=== PATIENT | male | born 1945 | race Caucasian/White ===

== ENCOUNTER 2018-07-29 10:26 | Inpatient (IN) | payer MEDICARE, OTHER ==
[2018-07-29] MEDS ORDERED: Sodium Chloride 0.9% 1000 ML 1,000 ML IV STA (11:48)
[2018-07-29] MEDS ORDERED: Sodium Chloride 0.9% 1000 ML 1,000 ML ONE (11:50)
--- NOTE | 2018-07-29 11:53 | ERPHSYRPT ---
- History of Present Illness Time Seen by Provider: 07/29/18 11:49 Historian: patient, family Exam Limitations: no limitations Patient Subjective Stated Complaint: Pt states "I have about 80 percent of my stomach removed due to cancer and I get these pains accross my abdomen and I think my kidneys are having trouble now. I am here because my thinks I might need some blood and my stomach is hurting again." Triage Nursing Assessment: PT alert and oriented X 3, skin pwd. Pt ambultes with an upright steady gait, able to speak in clear full sentences. Pt legs slightly swollen. PT in no apparent respiratory distress. Physician History: This is a 72-year-old white male with history of macular degeneration, COPD, hypercholesterolemia, high blood pressure, LA, GERD, stomach cancer, renal disease, The patient arrives with complaint of intermittent sharp pains lasting seconds and being recurrent going on for the last 2 days. He states he is not having any vomiting no melena no hematochezia he has had loose stools. Patient does state he had similar pain when he had a bowel obstruction when he had surgery for his stomach cancer he states he's had 80% of his stomach removed. He has no fevers no shortness of breath no chest pain. Past medical history includes macular degeneration, COPD, hypercholesterolemia, high blood pressure, myocardial infarction, GERD, renal disease, stomach cancer, bowel obstruction. Past surgical history includes 80% of his stomach removed, cardiac stents portion of his esophagus removed appendectomy, hernia repair, bilateral carpal tunnel. Social history former smoker . Timing/Duration: day(s) (2 days) Activities at Onset: none Quality: sharpness Abdominal Pain Onset Location: suprapubic Pain Radiation: no radiation Severity of Pain-Max: moderate Severity of Pain-Current: none Modifying Factors: Improves With: nothing. Worsens With: antacids, breathing, coughing, defecating, eating, exercise, lying down, movement, palpation, rest, urinating, vomiting, position, walking Associated Symptoms: diarrhea, No back, No chest pain, No diaphoresis, No fever/ chills, No fatigue, No headache, No heartburn, No loss of appetite, No nausea, No neck pain, No rash, No shortness of breath, No syncope, No testicular pain, No vomiting, No weakness Previous symptoms: same symptoms as today Allergies/Adverse Reactions: No Known Drug Allergies Allergy (Unverified 07/29/18 10:45) Home Medications: Amlodipine Besylate 2.5 mg PO DAILY 07/29/18 [History] Atorvastatin Calcium 10 mg PO DAILY 07/29/18 [History] Finasteride 5 mg PO DAILY 07/29/18 [History] Isosorbide Mononitrate 60 mg [Imdur 60MG] 60 mg PO DAILY 07/29/18 [History] Metoprolol Tartrate 25 mg PO DAILY 07/29/18 [History] PANTOPRAZOLE 40 mg Tablet [Protonix 40MG Tablet] 40 mg PO DAILY 07/29/18 [ History] Tamsulosin HCl 0.4 mg PO DAILY 07/29/18 [History] Hx Tetanus, Diphtheria Vaccination/Date Given: No Hx Influenza Vaccination/Date Given: No Hx Pneumococcal Vaccination/Date Given: No Immunizations Up to Date: Yes - Review of Systems Constitutional: No Fever, No Chills Eyes: No Symptoms Ears, Nose, & Throat: No Symptoms Respiratory: No Cough, No Dyspnea Cardiac: No Chest Pain, No Edema, No Syncope Abdominal/Gastrointestinal: Abdominal Pain, Diarrhea, No Nausea, No Vomiting, No Constipation, No Hematemesis, No Hematochezia, No Melena, No Dysphagia, No Appetite Changes Genitourinary Symptoms: No Dysuria Musculoskeletal: No Back Pain, No Neck Pain Skin: No Rash Neurological: No Dizziness, No Focal Weakness, No Sensory Changes Psychological: No Symptoms Endocrine: No Symptoms All Other Systems: Reviewed and Negative - Past Medical History Pertinent Past Medical History: Yes Neurological History: No Pertinent History ENT History: Macular Degeneration Cardiac History: High Cholesterol, Hypertension, Myocardial Infarction (LA) Respiratory History: COPD Endocrine Medical History: No Pertinent History Musculoskeletal History: No Pertinent History GI Medical History: GERD, Other History: Renal Disease Psycho-Social History: No Pertinent History Male Reproductive Disorders: No Pertinent History Other Medical History: stomach cancer. bowel blockage - Past Surgical History Past Surgical History: Yes Other Surgical History: power port. 80% of stomach removed. part of esophagus removed. colonoscopy - Social History Smoking Status: Former smoker Exposure to second hand smoke: No Drug Use: none Patient Lives Alone: No - Nursing Vital Signs Nursing Vital Signs: Initial Vital Signs Temperature 97.8 F 07/29/18 10:34 Pulse Rate 72 07/29/18 10:34 Respiratory Rate 16 07/29/18 10:34 Blood Pressure 144/66 07/29/18 10:34 O2 Sat by Pulse Oximetry 99 07/29/18 10:34 Pain Scale Pain Intensity 0 - Physical Exam General Appearance: no apparent distress, alert Eye Exam: PERRL/EOMI, eyes nml inspection Ears, Nose, Throat Exam: normal ENT inspection, pharynx normal, moist mucous membranes Neck Exam: normal inspection, non-tender, supple, full range of motion Respiratory Exam: normal breath sounds, lungs clear, No respiratory distress Cardiovascular Exam: regular rate/rhythm, normal heart sounds, capillary refill <2 sec Gastrointestinal/Abdomen Exam: soft, No tenderness, No mass Back Exam: normal inspection, normal range of motion, No CVA tenderness, No vertebral tenderness Extremity Exam: normal inspection, normal range of motion, pelvis stable Neurologic Exam: alert, oriented x 3, cooperative, 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 Sinus bradycardia, 55 bpm, normal axis, no acute ST or T wave changes noted) Ordered Tests: Active Orders 24 hr Category Date Time Status EKG-ER Only STAT Care 07/29/18 11:48 Active IV Insertion STAT Care 07/29/18 11:48 Active ABDOMEN AND PELVIS W/0 CONTRAS [CT] Stat Exams 07/29/18 12:10 Completed AMYLASE Stat Lab 07/29/18 11:30 Completed CBC W DIFF Stat Lab 07/29/18 11:30 Completed CMP Stat Lab 07/29/18 11:30 Completed CULTURE,URINE Stat Lab 07/29/18 13:35 Received LIPASE Stat Lab 07/29/18 11:30 Completed Manual Differential NC Stat Lab 07/29/18 11:30 Completed UA W/RFX UR CULTURE Stat Lab 07/29/18 13:35 Completed Medication Summary Discontinued Medications Generic Name Dose Route Start Last Admin Trade Name Freq PRN Reason Stop Dose Admin Sodium Chloride 1,000 mls @ 999 mls/hr 07/29/18 11:48 07/29/18 13:26 Sodium Chloride 0.9% 1000 Ml IV 07/29/18 12:48 Infused .Q1H1M STA Infusion Sodium Chloride Confirm 07/29/18 11:50 Sodium Chloride 0.9% 1000 Ml Administered 07/29/18 11:51 Dose 1,000 mls @ ud .ROUTE .STK-MED ONE Lab/Rad Data: Laboratory Result Diagrams 07/29/18 11:30 07/29/18 11:30 Laboratory Results 07/29/18 07/29/18 07/29/18 Range/Units 13:35 11:30 11:30 WBC 4.2 (4.0-10.5) K/mm3 RBC 2.59 L (4.1-5.6) M/mm3 Hgb 8.3 L (12.5-18.0) gm/dl Hct 27.0 L (42-50) % MCV 104.2 H (78-100) fl MCH 32.0 (26-32) pg MCHC 30.7 L (32-36) g/dl RDW 19.2 H (11.5-14.0) % Plt Count 239 (150-450) K/mm3 MPV 10.8 H (6-9.5) fl Segmented Neutrophils 76 H (36.-66.) % Band Neutrophils 1 (0.0-2.0) % Lymphocytes (Manual) 17 L (24-44) % Monocytes (Manual) 4 (0.0-12.0) % Eosinophils (Manual) 2 (0.00-3.0) % Toxic Granulation 2+ Platelet Estimate NORMAL (NORMAL) RBC Morphology ABNORMAL Poikilocytosis 1+ Anisocytosis 2+ Sodium 141 (137-145) mmol/L Potassium 4.1 (3.5-5.1) mmol/L Chloride 113 H (98-107) mmol/L Carbon Dioxide 21 L (22-30) mmol/L Anion Gap 11.2 (5-15) MEQ/L BUN 23 H (9-20) mg/dL Creatinine 2.05 H (0.66-1.25) mg/dL Estimated GFR 34.1 ML/MIN Glucose 181 H (74-106) mg/dL Calcium 8.5 (8.4-10.2) mg/dL Total Bilirubin 0.70 (0.2-1.3) mg/dL AST 18 (17-59) U/L ALT 16 (0-50) U/L Alkaline Phosphatase 114 (38-126) U/L Serum Total Protein 5.7 L (6.3-8.2) g/dL Albumin 3.1 L (3.5-5.0) g/dL Amylase 30 (30-110) U/L Lipase < 10 L (23-300) U/L Urine Color YELLOW (YELLOW) Urine Appearance SLIGHTLY CLOUDY (CLEAR) Urine pH 5.0 (5-6) Ur Specific [place] 1.016 (1.005-1.025) Urine Protein NEGATIVE (Negative) Urine Ketones NEGATIVE (NEGATIVE) Urine Blood LARGE (0-5) Alex/ul Urine Nitrite NEGATIVE (NEGATIVE) Urine Bilirubin NEGATIVE (NEGATIVE) Urine Urobilinogen NEGATIVE (0-1) mg/dL Ur Leukocyte Esterase TRACE (NEGATIVE) Urine WBC (Auto) 16-25 (0-5) /HPF Urine RBC (Auto) 51-100 (0-2) /HPF U Hyaline Cast (Auto) 0-2 (0-2) /LPF U Epithel Cells (Auto) NONE (FEW) /HPF Urine Bacteria (Auto) NONE (NEGATIVE) /HPF Urine Mucus (Auto) SLIGHT (NEGATIVE) /HPF Urine Culture Reflexed YES (NO) Urine Glucose NEGATIVE (NEGATIVE) mg/dL - Progress Progress: improved Progress Note: 07/29/18 13:40 72-year-old white male arrives with complaint of intermittent periumbilical abdominal pain for 2 days described as sharp and lasts for several seconds then goes away recurring every few minutes. Patient without nausea vomiting he has had diarrhea patient does have a history of stomach cancer with resection. CT of the abdomen is obtained without contrast Impression 1. The exam is markedly abnormal, 2. Borderline cardiomegaly with mild pericardial effusion, 3. Mild to moderate by basilar pleural effusions with adjacent compressive atelectasis at both posterior lung bases. 4. Evidence of prior upper abdominal surgery, apparently because of patient's history of "stomach cancer". 5. Moderate ascites is seen within the abdomen and pelvis. No evidence of free intraperitoneal air. 6. The gallbladder appears contracted and reveals mild increased attenuation. The possibility of small gallstones cannot be excluded or positively confirmed. 7. There appears to be bilateral hydronephrosis for unknown reasons. There is a right double-J ureteral stent extending from the right renal pelvis to the right side of the urinary bladder. No definite hydroureter or calculi are seen. There is also some apparent right renal cortical cysts and cortical thickening at the posterior aspect of the upper pole of the right kidney. 8. There is an abnormal but nonspecific small bowel gas pattern with some fluid -filled mildly dilated distal small bowel within the upper right pelvis measuring up to 3.5 cm in diameter. This could be due to a regional ileus or enteritis. Partial distal small bowel obstruction is also possible. Scattered distal colonic gas is seen. 9. Minimal sigmoid colon diverticulosis without evidence of acute diverticulitis. 10. An IVC filter is seen and place at L3-L4. There is also scattered dense atherosclerotic vascular calcification present. 11 mild prostatomegaly, small fat containing left inguinal hernia, and degenerative changes throughout the visualized thoracolumbar spine, greatest at L4-L5 where mild to moderate degenerative disc disease is seen. 07/29/18 14:44 I contacted the patient's oncologist Dr. Taye Medrano in [facility] and discussed the patient's presentation labs and CT findings. He stated that the CT findings were not much different than what he was when he was recently worked up in [place] one to 2 weeks ago. He did state that the patient has had a small bowel obstruction which resolved spontaneously with Gastrografin study. I discussed patient's pericardial effusion and pleural effusions with Dr. Medrano he did not feel like these were different than prior. He did state that he did note that the patient's creatinine had increased from when he was in the hospital in [place]. He recommended hydrating the patient. I've discussed this with the patient he is willing to come in overnight. Apparently the patient had signed up to see Dr. Maurer he has not seen him yet but is planning on seeing him I've discussed the case with Dr. Gallegos who is covering for Dr. Maurer. Will go ahead and place patient on telemetry, provide IV fluids, morphine as needed for pain, Zofran for nausea. Will repeat CBC CMP in the morning. Dr. Medrano recommended that the urine be cultured and be treated if cultures were positive. 07/29/18 14:47 - Departure Time of Disposition: 14:49 Departure Disposition: Observation Clinical Impression: History of stomach cancer Abdominal pain Qualifiers: Abdominal location: periumbilical Qualified Code(s): R10.33 - Periumbilical pain Condition: Fair Critical Care Time: No Referrals: BOBBY MAURER MD [Primary Care Provider] -
[2018-07-29 11:55] LABS: Hemoglobin 8.3 gm/dl (12.5-18.0); Mean Cell Volume 104.2 fl (78-100); Mean Corpuscular Hgb Concent. 30.7 g/dl (32-36); Mean Platelet Volume 10.8 fl (6-9.5); Platelet Count 239 K/mm3 (150-450); Red Blood Count 2.59 M/mm3 (4.1-5.6); Red Cell Distribution Width 19.2 % (11.5-14.0); White Blood Count 4.2 K/mm3 (4.0-10.5)
[2018-07-29 12:00] LABS: ALBUMIN 3.1 g/dL (3.5-5.0); ALKALINE PHOSPHATASE 114 U/L (38-126); AMYLASE 30 U/L (30-110); ANION GAP 11.2 MEQ/L (5-15); BLOOD UREA NITROGEN 23 mg/dL (9-20); CHLORIDE 113 mmol/L (98-107); Calcium 8.5 mg/dL (8.4-10.2); Carbon Dioxide 21 mmol/L (22-30); Creatinine 1 2.05 mg/dL (0.66-1.25); Glucose 181 mg/dL (74-106); Potassium 4.1 mmol/L (3.5-5.1); SGOT/AST 18 U/L (17-59); SGPT/ALT 16 U/L (0-50); SODIUM 141 mmol/L (137-145); Total Protein 5.7 g/dL (6.3-8.2)
[2018-07-29 12:01] LABS: LIPASE < 10 U/L (23-300)
[2018-07-29 12:21] LABS: BAND 1 % (0.0-2.0); Eosinophil 2 % (0.00-3.0); Lymphocytes 17 % (24-44); Monocyte 4 % (0.0-12.0); Neutrophils 76 % (36.-66.); Total Cells Counted 100
[2018-07-29 12:22] LABS: ANISOCYTOSIS 2+; Platelet Estimate NORMAL (NORMAL); Poikilocytosis 1+; Toxic Granulation 2+
[2018-07-29 13:46] LABS: Appearance SLIGHTLY CLOUDY (CLEAR); Bilirubin NEGATIVE (NEGATIVE); Blood LARGE Ery/ul (0-5); Glucose NEGATIVE (NEGATIVE); Ketones NEGATIVE (NEGATIVE); Leukocyte Esterase TRACE (NEGATIVE); Nitrite NEGATIVE (NEGATIVE); Protein,Urine Dip NEGATIVE (Negative); Specific Gravity 1.016 (1.005-1.025); Urobilinogen NEGATIVE mg/dL (0-1)
--- NOTE | 2018-07-29 13:47 | XRAY ---
Exam: CT of the abdomen and pelvis without IV contrast from 07/29/2018. CTDI: 22.17 Comparison: None. Indication: 72-year-old male with abdominal pain that is intermittently sharp, abdominal pains last a few seconds. This has been occurring for the past 2 days. He has had loose stools. Additional history: The patient states that he has had surgery due to "stomach cancer" on his esophagus and stomach in October,. He also gives a history of a stent within his right kidney placed 2-3 months ago and prior appendectomy. He also gives a history of past bowel obstruction which did not require surgery. Technique: Non-IV contrast axial images were obtained through the abdomen and pelvis. Reconstructed coronal and sagittal images were created and reviewed. No oral contrast was given. Findings: The heart size appears towards the upper limits of normal to borderline enlarged.. There is a mild pericardial effusion which measures up to 11 mm in maximum thickness posteriorly on the left. There are mild to moderate posterior pleural effusions with concomitant adjacent atelectasis at both posterior lung bases. A suture line is seen adjacent to the stomach within the medial aspect of the left upper quadrant. I also note some apparent surgical sutures within the right upper quadrant. The liver appears of unremarkable size. Evaluation of the solid organs is limited without the use of IV contrast. No obvious liver mass is seen. I believe there are branching portal venous structures within the liver. The gallbladder appears contracted, but reveals a suggestion of some mild calcification within it on axial image #35 which could represent cholelithiasis, although this is not definite. The spleen appears of normal size and reveals no mass. No gross abnormality of the pancreas is seen. The adrenal glands are of normal size and configuration. An IVC catheter is seen in place at the L3-L4 level. The kidneys appear of unremarkable size and reveal evidence of bilateral hydronephrosis. A double-J right ureteral stent is seen which extends from the right renal pelvis down the right ureter with the tip located within the right side of a partially collapsed urinary bladder. A 6.2 cm oval-shaped cyst measuring +14.5 Hounsfield units is seen abutting the upper pole of the right kidney. There appears to be some renal cortex thinning posteriorly within the upper pole of the right kidney. See axial image #34. There is an ill-defined 2.1 cm hypoattenuated lesion within the lateral aspect of the right mid kidney on axial images #37 and #38. This measures +10 Hounsfield units and likely represents a cyst. Further evaluation with a renal ultrasound may be helpful. There may be a slightly larger cyst within the posterior medial aspect of the middle third of the right kidney on axial image #37 measuring 2.2 cm in diameter and + 11.25 Hounsfield units. No renal calculi are seen. The ureters do not appear significantly dilated. The urinary bladder is partially empty. Moderate atherosclerotic vascular calcification is seen within the abdominal aorta as well as the origin of the celiac axis and SMA. There is also vascular calcification within both proximal renal arteries, right greater than left. No abnormal retroperitoneal lymphadenopathy is seen. I see no free intraperitoneal air. However, there is moderate ascites seen within both upper outer quadrants, the abdominal mesentery, both paracolic gutters, right greater than left, and the lower pelvis. There are some fluid-filled small bowel bowel loops measuring up to 3.5 cm in diameter within the upper right pelvis. Consider a mild ileus versus enteritis. Partial bowel obstruction is also possible. Minimal sigmoid colon diverticulosis without evidence of diverticulitis is seen. The patient is status post appendectomy. Extensive vascular calcification is seen within the iliac arteries and common femoral arteries. A minimal fat-containing left inguinal hernia is seen. The seminal vesicles appear unremarkable. The prostate gland appears mildly enlarged measuring 5.45 cm in width and 5.0 cm in AP dimension on axial image #78. Minimal prostate gland calcification is seen. Some scattered calcified phleboliths are seen within the lower pelvis bilaterally. No enlarged pelvic lymph nodes are seen. The bones reveal no acute fracture or aggressive bone lesion. There is mild degenerative disc disease at L4-L5 with vacuum disc phenomena and marginal vertebral endplate spurring. I also note other scattered mild to moderate vertebral endplate spurring within the visualized thoracolumbar spine. Impression: 1. The exam is markedly abnormal. 2. Borderline cardiomegaly with mild pericardial effusion. 3. Mild to moderate bibasilar pleural effusions with adjacent compression atelectasis at both posterior lung bases. 4. Evidence of prior upper abdominal surgery, apparently because of patient's history of "stomach cancer". 5. Moderate ascites is seen within the abdomen and pelvis. I see no evidence of free intraperitoneal air. 6. The gallbladder appears contracted and reveals mild increased attenuation. The possibility of small gallstones cannot be excluded or positively confirmed. 7. There appears to be bilateral hydronephrosis for unknown reasons. There is a right double-J ureteral stent extending from the right renal pelvis to the right side of the urinary bladder. No definite hydroureter or calculi are seen. I also note some apparent right renal cortical cysts and cortical thinning at the posterior aspect of the upper pole of the right kidney. 8. Abnormal, but nonspecific small bowel gas pattern with some fluid-filled, mildly dilated distal small bowel within the upper right pelvis measuring up to 3.5 cm in diameter. This could be due to a regional ileus or enteritis. Partial distal small bowel obstruction is also possible. Scattered distal colonic gas is seen. 9. Minimal sigmoid colon diverticulosis without evidence of acute diverticulitis. 10. An IVC filter is seen in place at L3-L4. There is also scattered dense atherosclerotic vascular calcification present. 11. Mild prostatomegaly, small fat-containing left inguinal hernia, and degenerative changes throughout the visualized thoracolumbar spine, greatest at L4-L5, where I see mild to moderate degenerative disc disease.
[2018-07-29] MEDS ORDERED: Zofran 4 MG/2 ML VIAL IV PRN (15:19)
[2018-07-29] MEDS ORDERED: NovoLOG Insulin SQ PRN (15:19)
[2018-07-29] MEDS: Sodium Chloride 0.9% 1000 ML 1,000 ML IV SCH (15:55)
[2018-07-29] MEDS: MORPHINE SULFATE 4 MG INJ IV PRN (18:32)
[2018-07-29] MEDS: Flomax 0.4 MG PO SCH (20:02)
[2018-07-29] MEDS: ELIQUIS 2.5 MG TABLET PO SCH (20:02)
[2018-07-29] MEDS: Imdur 60MG PO SCH (20:03)
[2018-07-29] MEDS: Zocor 10MG PO SCH (20:04)
[2018-07-29] MEDS: Lopressor 25MG Tab PO SCH (20:04)
[2018-07-29] MEDS ORDERED: ELIQUIS 2.5 MG TABLET PO SCH (22:00)
[2018-07-29] MEDS ORDERED: LIPITOR 40MG PO SCH (22:00)
[2018-07-30] MEDS: Sodium Chloride 0.9% 1000 ML 1,000 ML IV SCH ×2 (01:21→18:12)
[2018-07-30 05:38] LABS: Hematocrit 25.5 % (42-50); Hemoglobin 7.8 gm/dl (12.5-18.0); Mean Cell Volume 104.9 fl (78-100); Mean Corpuscular Hgb Concent. 30.6 g/dl (32-36); Mean Platelet Volume 10.2 fl (6-9.5); Platelet Count 205 K/mm3 (150-450); Red Blood Count 2.43 M/mm3 (4.1-5.6); Red Cell Distribution Width 19.3 % (11.5-14.0); White Blood Count 3.2 K/mm3 (4.0-10.5)
[2018-07-30 05:57] LABS: ALBUMIN 2.8 g/dL (3.5-5.0); ANION GAP 10.7 MEQ/L (5-15); BILIRUBIN,TOTAL 0.7 mg/dL (0.2-1.3); Calcium 8.3 mg/dL (8.4-10.2); Creatinine 1 1.79 mg/dL (0.66-1.25); Potassium 4.6 mmol/L (3.5-5.1); Total Protein 5.4 g/dL (6.3-8.2)
--- NOTE | 2018-07-30 08:26 | PCM.HP ---
History of Present Illness - Chief Complaint Chief Complaint: abdominal pain History of Present Illness: is a 72 year old male with no local physician who arrived to the ER with complaints of dizziness, lightheadedness and abdominal pain. He has a complicated medical history including gastric cancer with a large portion of his stomach removed, hx of [place] with stents, renal stent placement and chronic kidney disease. He had a similar incident of abd pain about a month ago, has had some nausea. denies any blood in the stool, has had his recurrent anemia worked up in [place], requiring frequent blood transfusions. - Review of Systems Constitutional: No Fever, No Chills Eyes: No Symptoms Respiratory: No Cough, No Short Of Breath Cardiac: No Chest Pain, No Edema, No Syncope Abdominal/Gastrointestinal: Abdominal Pain, Nausea, No Hematemesis, No Hematochezia, No Melena Genitourinary Symptoms: No Dysuria Skin: No Rash All Other Systems: Reviewed and Negative Medications & Allergies Home Medications: Home Medication List Amlodipine Besylate 2.5 mg PO DAILY 07/29/18 [History Confirmed 07/29/18] Apixaban [Eliquis] 5 mg PO BID 07/29/18 [History Confirmed 07/29/18] Aspirin 81 mg PO DAILY 07/29/18 [History Confirmed 07/29/18] Atorvastatin Calcium 10 mg PO HS 07/29/18 [History Confirmed 07/29/18] Finasteride 5 mg PO DAILY 07/29/18 [History Confirmed 07/29/18] Isosorbide Mononitrate [Isosorbide Mononitrate ER] 60 mg PO BID 07/29/18 [ History Confirmed 07/29/18] Metoprolol Tartrate 25 mg PO BID 07/29/18 [History Confirmed 07/29/18] Nitroglycerin 0.3 mg SL Q5MIN PRN MR X 3 PRN 07/29/18 [History Confirmed ] PANTOPRAZOLE 40 mg Tablet [Protonix 40MG Tablet] 40 mg PO DAILY 07/29/18 [ History Confirmed 07/29/18] Tamsulosin HCl 0.4 mg PO HS 07/29/18 [History Confirmed 07/29/18] Allergies/Adverse Reactions: Allergies Allergy/AdvReac Type Severity Reaction Status Date / Time No Known Drug Allergies Allergy Unverified 07/29/18 10:45 - Past Medical History Past Medical History: Yes Neurological History: No Pertinent History ENT History: Macular Degeneration Cardiac History: High Cholesterol, Hypertension, Myocardial Infarction ([place]) Respiratory History: COPD Endocrine Medical History: No Pertinent History Musculoskelatal History: No Pertinent History GI Medical History: GERD, Other History: Renal Disease Pyscho-Social History: No Pertinent History Male Reproductive Disorders: No Pertinent History Comment: stomach cancer. bowel blockage. carpel tunnel - Past Surgical History Past Surgical History: Yes Cardiac History: Cardiac Stent GI Surgical History: Appendectomy, Hernia Repair Other Surgical History: power port. 80% of stomach removed. part of esophagus removed. colonoscopy. filter for blood clot - Social History Smoking Status: Former smoker Exposure to second hand smoke: No Alcohol: None Drug Use: none - Physical Exam Vital Signs: Vital Signs - 24 hr Temp Pulse Resp BP BP Pulse Ox 07/30/18 07:09 98 F 86 20 168/74 99 07/30/18 07:00 92 L 07/30/18 04:00 98.4 F 62 18 175/78 97 07/29/18 23:27 98.6 F 61 16 178/61 96 07/29/18 22:43 92 L 07/29/18 22:00 160/78 07/29/18 19:51 98.4 F 68 20 190/80 68 L 07/29/18 16:47 94 L 07/29/18 15:30 98.1 F 60 18 197/83 97 07/29/18 15:19 97 07/29/18 14:58 62 16 154/56 98 07/29/18 14:49 97 07/29/18 13:35 98.0 F 54 L 16 140/66 98 07/29/18 11:55 97.6 F 54 L 16 117/63 96 07/29/18 11:22 97.6 F 61 16 131/64 97 07/29/18 10:34 97.8 F 72 16 144/66 99 Oxygen-Last 24 hours Oxygen Flowrate (L/min)-RT 2 General Appearance: no apparent distress Neurologic Exam: alert, oriented x 3, cooperative Eye Exam: PERRL/EOMI, eyes nml inspection Respiratory Exam: normal breath sounds, lungs clear, No respiratory distress Cardiovascular Exam: regular rate/rhythm, normal heart sounds, normal peripheral pulses Gastrointestinal/Abdomen Exam: soft, normal bowel sounds, No tenderness, No distention, No mass, No guarding Extremity Exam: normal inspection, normal range of motion, pelvis stable Skin Exam: normal color, warm, dry, No rash Results - Labs Lab/Micro Results: Accuchecks Date 07/30/18 Accucheck Value: 96 Accucheck Value: 82 Lab Results-Last 24 Hours 07/29/18 07/29/18 07/29/18 Range/Units 11:30 11:30 13:35 WBC 4.2 (4.0-10.5) K/mm3 RBC 2.59 L (4.1-5.6) M/mm3 Hgb 8.3 L (12.5-18.0) gm/dl Hct 27.0 L (42-50) % MCV 104.2 H (78-100) fl MCH 32.0 (26-32) pg MCHC 30.7 L (32-36) g/dl RDW 19.2 H (11.5-14.0) % Plt Count 239 (150-450) K/mm3 MPV 10.8 H (6-9.5) fl Segmented Neutrophils 76 H (36.-66.) % Band Neutrophils 1 (0.0-2.0) % Lymphocytes (Manual) 17 L (24-44) % Monocytes (Manual) 4 (0.0-12.0) % Eosinophils (Manual) 2 (0.00-3.0) % Toxic Granulation 2+ Platelet Estimate NORMAL (NORMAL) RBC Morphology ABNORMAL Poikilocytosis 1+ Anisocytosis 2+ Sodium 141 (137-145) mmol/L Potassium 4.1 (3.5-5.1) mmol/L Chloride 113 H (98-107) mmol/L Carbon Dioxide 21 L (22-30) mmol/L Anion Gap 11.2 (5-15) MEQ/L BUN 23 H (9-20) mg/dL Creatinine 2.05 H (0.66-1.25) mg/dL Estimated GFR 34.1 ML/MIN Glucose 181 H (74-106) mg/dL Calcium 8.5 (8.4-10.2) mg/dL Total Bilirubin 0.70 (0.2-1.3) mg/dL AST 18 (17-59) U/L ALT 16 (0-50) U/L Alkaline Phosphatase 114 (38-126) U/L Serum Total Protein 5.7 L (6.3-8.2) g/dL Albumin 3.1 L (3.5-5.0) g/dL Amylase 30 (30-110) U/L Lipase < 10 L (23-300) U/L Urine Color YELLOW (YELLOW) Urine Appearance SLIGHTLY CLOUDY (CLEAR) Urine pH 5.0 (5-6) Ur Specific [place] 1.016 (1.005-1.025) Urine Protein NEGATIVE (Negative) Urine Ketones NEGATIVE (NEGATIVE) Urine Blood LARGE (0-5) Alex/ul Urine Nitrite NEGATIVE (NEGATIVE) Urine Bilirubin NEGATIVE (NEGATIVE) Urine Urobilinogen NEGATIVE (0-1) mg/dL Ur Leukocyte Esterase TRACE (NEGATIVE) Urine WBC (Auto) 16-25 (0-5) /HPF Urine RBC (Auto) 51-100 (0-2) /HPF U Hyaline Cast (Auto) 0-2 (0-2) /LPF U Epithel Cells (Auto) NONE (FEW) /HPF Urine Bacteria (Auto) NONE (NEGATIVE) /HPF Urine Mucus (Auto) SLIGHT (NEGATIVE) /HPF Urine Culture Reflexed YES (NO) Urine Glucose NEGATIVE (NEGATIVE) mg/dL 07/30/18 07/30/18 Range/Units 05:30 05:30 WBC 3.2 L (4.0-10.5) K/mm3 RBC 2.43 L (4.1-5.6) M/mm3 Hgb 7.8 L (12.5-18.0) gm/dl Hct 25.5 L (42-50) % MCV 104.9 H (78-100) fl MCH 32.0 (26-32) pg MCHC 30.6 L (32-36) g/dl RDW 19.3 H (11.5-14.0) % Plt Count 205 (150-450) K/mm3 MPV 10.2 H (6-9.5) fl Segmented Neutrophils (36.-66.) % Band Neutrophils (0.0-2.0) % Lymphocytes (Manual) (24-44) % Monocytes (Manual) (0.0-12.0) % Eosinophils (Manual) (0.00-3.0) % Toxic Granulation Platelet Estimate (NORMAL) RBC Morphology Poikilocytosis Anisocytosis Sodium 142 (137-145) mmol/L Potassium 4.6 (3.5-5.1) mmol/L Chloride 115 H (98-107) mmol/L Carbon Dioxide 21 L (22-30) mmol/L Anion Gap 10.7 (5-15) MEQ/L BUN 21 H (9-20) mg/dL Creatinine 1.79 H (0.66-1.25) mg/dL Estimated GFR 39.9 ML/MIN Glucose 96 (74-106) mg/dL Calcium 8.3 L (8.4-10.2) mg/dL Total Bilirubin 0.70 (0.2-1.3) mg/dL AST 74 H (17-59) U/L ALT 44 (0-50) U/L Alkaline Phosphatase 175 H (38-126) U/L Serum Total Protein 5.4 L (6.3-8.2) g/dL Albumin 2.8 L (3.5-5.0) g/dL Amylase (30-110) U/L Lipase (23-300) U/L Urine Color (YELLOW) Urine Appearance (CLEAR) Urine pH (5-6) Ur Specific [place] (1.005-1.025) Urine Protein (Negative) Urine Ketones (NEGATIVE) Urine Blood (0-5) Alex/ul Urine Nitrite (NEGATIVE) Urine Bilirubin (NEGATIVE) Urine Urobilinogen (0-1) mg/dL Ur Leukocyte Esterase (NEGATIVE) Urine WBC (Auto) (0-5) /HPF Urine RBC (Auto) (0-2) /HPF U Hyaline Cast (Auto) (0-2) /LPF U Epithel Cells (Auto) (FEW) /HPF Urine Bacteria (Auto) (NEGATIVE) /HPF Urine Mucus (Auto) (NEGATIVE) /HPF Urine Culture Reflexed (NO) Urine Glucose (NEGATIVE) mg/dL Microbiology 07/29/18 13:35 Urine Culture - Preliminary Clean Catch Midstream NO GROWTH TO DATE Accuchecks Date 07/30/18 Accucheck Value: 96 Accucheck Value: 82 - Radiology Impressions Radiology Exams & Impressions: Radiology Procedures Category Date Time Status ABDOMEN AND PELVIS W/0 CONTRAS [CT] Stat Exams 07/29/18 12:10 Completed - Other Procedures and Tests Respiratory Therapy 07/29/18 23:30 Oxygen NASAL CANNULA 2 lpm Assessment/Plan (1) Partial small bowel obstruction Current Visit: Yes Status: Acute Assessment & Plan: seems improved clinically, will start clear liquids this morning and advance as tolerated. patient has had a bowel movement this morning Code(s): K56.600 - PARTIAL INTESTINAL OBSTRUCTION, UNSPECIFIED TO CAUSE (2) Anemia Current Visit: Yes Status: Acute Assessment & Plan: patient with significant symptoms and hemoglobin 7.8 today, with multiple medical problems and comorbidities will transfuse 2 units packed red blood cells today. Code(s): D64.9 - ANEMIA, UNSPECIFIED (3) History of gastric cancer Current Visit: Yes Status: Acute Code(s): Z85.028 - PERSONAL HISTORY OF OTHER MALIGNANT NEOPLASM OF STOMACH (4) Coronary artery disease Current Visit: Yes Status: Acute Assessment & Plan: stable currently Code(s): I25.10 - ATHSCL HEART DISEASE OF [place] CORONARY ARTERY W/O ANG PCTRS (5) Acute on chronic renal insufficiency Current Visit: Yes Status: Acute Assessment & Plan: improved with hydration, will follow Code(s): N28.9 - DISORDER OF KIDNEY AND URETER, UNSPECIFIED; N18.9 - CHRONIC KIDNEY DISEASE, UNSPECIFIED
[2018-07-30] MEDS ORDERED: Lasix 20 MG/2 ML IV SCH (08:30)
[2018-07-30] MEDS ORDERED: NITROGLYCERIN 0.3 MG SL PRN (09:27)
[2018-07-30] MEDS ORDERED: Nitrostat 0.4 MG Tablet SL PRN (09:42)
[2018-07-30] MEDS: Lopressor 25MG Tab PO SCH ×2 (09:50→21:16)
[2018-07-30] MEDS: ELIQUIS 2.5 MG TABLET PO SCH ×2 (09:52→21:17)
[2018-07-30] MEDS: ECOTRIN 81 MG PO SCH (09:52)
[2018-07-30] MEDS: NORVASC 5 MG PO SCH (09:52)
[2018-07-30] MEDS: Proscar 5 MG PO SCH (09:52)
[2018-07-30] MEDS: Imdur 60MG PO SCH ×2 (09:52→21:16)
[2018-07-30] MEDS: Protonix 40MG Tablet PO SCH (09:53)
[2018-07-30] MEDS ORDERED: NON-FORMULARY ITEM (Aspirin [Aspirin] 81 MG) PO SCH (10:00)
[2018-07-30 10:29] LABS: ANISOCYTOSIS 2+; ATYPICAL LYMPHS 1 %; BAND 3 % (0.0-2.0); Basophil 1 % (0.0-1.0); Eosinophil 4 % (0.00-3.0); Lymphocytes 14 % (24-44); Monocyte 9 % (0.0-12.0); Neutrophils 68 % (36.-66.); Poikilocytosis 1+; Total Cells Counted 100
[2018-07-30 10:30] LABS: Hypochromia 1+; Platelet Estimate NORMAL (NORMAL); Toxic Granulation 2+
[2018-07-30 10:56] LABS: ABO TYPING A; Antibody Screen NEGATIVE (NEGATIVE); RH TYPING POSITIVE
[2018-07-30] MEDS ORDERED: Sodium Chloride 0.9% 500 ML 500 ML IV SCH (11:00)
[2018-07-30 19:40] LABS: Hematocrit 30.5 % (42-50); Hemoglobin 9.6 gm/dl (12.5-18.0)
[2018-07-30] MEDS: Flomax 0.4 MG PO SCH (21:17)
[2018-07-30] MEDS: Zocor 10MG PO SCH (21:17)
[2018-07-31] MEDS: Sodium Chloride 0.9% 1000 ML 1,000 ML IV SCH ×2 (04:01→14:31)
[2018-07-31 05:51] LABS: Hematocrit 30.6 % (42-50); Hemoglobin 9.7 gm/dl (12.5-18.0); Mean Cell Volume 99.4 fl (78-100); Mean Corpuscular Hgb Concent. 31.7 g/dl (32-36); Mean Platelet Volume 10.5 fl (6-9.5); Platelet Count 216 K/mm3 (150-450); Red Blood Count 3.08 M/mm3 (4.1-5.6); Red Cell Distribution Width 20.9 % (11.5-14.0)
[2018-07-31 05:59] LABS: Mean Corpuscular Hemoglobin 31.4 pg (26-32)
[2018-07-31 06:04] LABS: ANION GAP 12.6 MEQ/L (5-15); BILIRUBIN,TOTAL 0.7 mg/dL (0.2-1.3); Calcium 8.7 mg/dL (8.4-10.2); Creatinine 1 1.82 mg/dL (0.66-1.25); Potassium 4.3 mmol/L (3.5-5.1); Total Protein 5.6 g/dL (6.3-8.2)
--- NOTE | 2018-07-31 08:05 | PCM.NOTE ---
Date and Time: 07/31/18 0802 Subjective Assessment: patient had some pain after eating yesterday, feels pretty good this morning. no pain but hasn't ate or drank anything, had a good bowel movement this morning. Objective Exam General Appearance: no apparent distress, alert Neurologic Exam: alert, oriented x 3 Skin Exam: normal color, warm, dry Respiratory Exam: normal breath sounds, lungs clear, No respiratory distress Cardiovascular Exam: regular rate/rhythm, normal heart sounds Gastrointestinal/Abdomen Exam: normal bowel sounds, No tenderness, No distention , No mass, No guarding Extremity Exam: normal inspection, normal range of motion OBJECTIVE DATA Vital Signs: Vital Signs - 24 hr Temp Pulse Resp BP Pulse Ox 07/31/18 07:50 98.2 F 64 18 180/76 96 07/31/18 04:00 97.5 F 73 18 160/70 95 07/31/18 00:00 56 L 155/70 91 L 07/30/18 23:07 93 L 07/30/18 20:00 98.3 F 72 18 170/75 97 07/30/18 16:00 98.0 F 62 18 185/86 96 07/30/18 12:00 97.9 F 65 18 178/86 94 L Pain Assessment - Last Documented Pain Intensity 0 Pain Scale Used 0-10 Pain Scale Intake and Output: Intake & Output 07/28/18 07/29/18 07/30/18 07/31/18 11:59 11:59 11:59 11:59 Intake Total 1834 3450 Output Total 700 Balance 1834 2750 Weight 81.647 kg 91.4 kg Lab Results: Accuchecks Date 07/31/18 Date 07/30/18 Date 07/30/18 Time 05:00 Time 21:15 Time 16:35 Accucheck Value: 100 Accucheck Value: 99 Accucheck Value: 99 Lab Results-Last 24 Hours 07/30/18 07/30/18 07/30/18 Range/Units 05:30 09:30 09:30 WBC (4.0-10.5) K/mm3 RBC (4.1-5.6) M/mm3 Hgb (12.5-18.0) gm/dl Hct (42-50) % MCV (78-100) fl MCH (26-32) pg MCHC (32-36) g/dl RDW (11.5-14.0) % Plt Count (150-450) K/mm3 MPV (6-9.5) fl Segmented Neutrophils 68 H (36.-66.) % Band Neutrophils 3 H (0.0-2.0) % Lymphocytes (Manual) 14 L (24-44) % Monocytes (Manual) 9 (0.0-12.0) % Eosinophils (Manual) 4 H (0.00-3.0) % Basophils (Manual) 1 (0.0-1.0) % Atypical Lymphocytes 1 % Hypochromia 1+ Toxic Granulation 2+ Platelet Estimate NORMAL (NORMAL) RBC Morphology ABNORMAL Poikilocytosis 1+ Anisocytosis 2+ Sodium (137-145) mmol/L Potassium (3.5-5.1) mmol/L Chloride (98-107) mmol/L Carbon Dioxide (22-30) mmol/L Anion Gap (5-15) MEQ/L BUN (9-20) mg/dL Creatinine (0.66-1.25) mg/dL Estimated GFR ML/MIN Glucose (74-106) mg/dL Calcium (8.4-10.2) mg/dL Magnesium (1.6-2.3) mg/dL Total Bilirubin (0.2-1.3) mg/dL AST (17-59) U/L ALT (0-50) U/L Alkaline Phosphatase (38-126) U/L Serum Total Protein (6.3-8.2) g/dL Albumin (3.5-5.0) g/dL ABO Group Rh Factor Antibody Screen (NEGATIVE) Crossmatch COMPATIBLE COMPATIBLE (COMPATIBLE) 07/30/18 07/30/18 07/31/18 Range/Units 09:30 19:30 05:20 WBC 3.0 L (4.0-10.5) K/mm3 RBC 3.08 L (4.1-5.6) M/mm3 Hgb 9.6 L D 9.7 L (12.5-18.0) gm/dl Hct 30.5 L 30.6 L (42-50) % MCV 99.4 (78-100) fl MCH 31.4 (26-32) pg MCHC 31.7 L (32-36) g/dl RDW 20.9 H (11.5-14.0) % Plt Count 216 (150-450) K/mm3 MPV 10.5 H (6-9.5) fl Segmented Neutrophils (36.-66.) % Band Neutrophils (0.0-2.0) % Lymphocytes (Manual) (24-44) % Monocytes (Manual) (0.0-12.0) % Eosinophils (Manual) (0.00-3.0) % Basophils (Manual) (0.0-1.0) % Atypical Lymphocytes % Hypochromia Toxic Granulation Platelet Estimate (NORMAL) RBC Morphology Poikilocytosis Anisocytosis Sodium (137-145) mmol/L Potassium (3.5-5.1) mmol/L Chloride (98-107) mmol/L Carbon Dioxide (22-30) mmol/L Anion Gap (5-15) MEQ/L BUN (9-20) mg/dL Creatinine (0.66-1.25) mg/dL Estimated GFR ML/MIN Glucose (74-106) mg/dL Calcium (8.4-10.2) mg/dL Magnesium (1.6-2.3) mg/dL Total Bilirubin (0.2-1.3) mg/dL AST (17-59) U/L ALT (0-50) U/L Alkaline Phosphatase (38-126) U/L Serum Total Protein (6.3-8.2) g/dL Albumin (3.5-5.0) g/dL ABO Group A Rh Factor POSITIVE Antibody Screen NEGATIVE (NEGATIVE) Crossmatch (COMPATIBLE) 07/31/18 Range/Units 05:20 WBC (4.0-10.5) K/mm3 RBC (4.1-5.6) M/mm3 Hgb (12.5-18.0) gm/dl Hct (42-50) % MCV (78-100) fl MCH (26-32) pg MCHC (32-36) g/dl RDW (11.5-14.0) % Plt Count (150-450) K/mm3 MPV (6-9.5) fl Segmented Neutrophils (36.-66.) % Band Neutrophils (0.0-2.0) % Lymphocytes (Manual) (24-44) % Monocytes (Manual) (0.0-12.0) % Eosinophils (Manual) (0.00-3.0) % Basophils (Manual) (0.0-1.0) % Atypical Lymphocytes % Hypochromia Toxic Granulation Platelet Estimate (NORMAL) RBC Morphology Poikilocytosis Anisocytosis Sodium 144 (137-145) mmol/L Potassium 4.3 (3.5-5.1) mmol/L Chloride 116 H (98-107) mmol/L Carbon Dioxide 20 L (22-30) mmol/L Anion Gap 12.6 (5-15) MEQ/L BUN 18 (9-20) mg/dL Creatinine 1.82 H (0.66-1.25) mg/dL Estimated GFR 39.1 ML/MIN Glucose 97 (74-106) mg/dL Calcium 8.7 (8.4-10.2) mg/dL Magnesium 1.9 (1.6-2.3) mg/dL Total Bilirubin 0.70 (0.2-1.3) mg/dL AST 32 (17-59) U/L ALT 28 (0-50) U/L Alkaline Phosphatase 166 H (38-126) U/L Serum Total Protein 5.6 L (6.3-8.2) g/dL Albumin 3.0 L (3.5-5.0) g/dL ABO Group Rh Factor Antibody Screen (NEGATIVE) Crossmatch (COMPATIBLE) Radiology Exams: Radiology Procedures Category Date Time Status ABDOMEN AND PELVIS W/0 CONTRAS [CT] Stat Exams 07/29/18 12:10 Completed Multi-Disciplinary Progress Notes: Multi-Disciplinary Progress Notes 07/30/18 11:00 (created 07/30/18 14:07) Case Management Note by Erika Ac DISCHARGE PLAN REVIEWED WITH PT AND , REPORTS THAT PT IS NORMALLY VERY INDEPENDENT WITH ALL ADL'S. DOES NOT USE A CANE OR WALKER, HAS NEVER HAD TO. REPORTS THAT THEY LIVE IN [place] AND HAVE BEEN HERE FOR THE . REPORTS THAT THEY ARE MOVING HERE SOON TO BE NEAR FAMILY. DENY NEEDS AT THIS TIME. DISCUSSED THAT THEY HAD APPOINTED THEIR DAUGHTER LAY CAREGIVER, EXPLAINED WHAT LAY CAREGIVER MEANS. PT/ REPORTS THAT THEY THOUGHT THAT WAS AN EMERGENCY CONTACT. PT REPORTS THAT HE DOES NOT WANT [employer] TO CALL STEPDAUGHTER AND DISCUSS ANY NEEDS FOR HOME. REPORTS THAT IT IS NOT NECESSARY. REPORTS THAT HIS WILL HELP AT HOME IF NEEDED, BUT HE PLANS TO RETURN HOME TO PRE EPISODIC LEVEL OF [place]. Initialized on 07/30/18 14:07 - END OF NOTE Assessment/Plan (1) Partial small bowel obstruction Current Visit: Yes Status: Acute Assessment & Plan: will advance diet today, encourage ambulation. if able to eat normal diet with no pain or nausea/vomiting may be able to discharge home later today Code(s): K56.600 - PARTIAL INTESTINAL OBSTRUCTION, UNSPECIFIED TO CAUSE (2) Anemia Current Visit: Yes Status: Acute Assessment & Plan: improved s/p 2 units hgb 9.7 Code(s): D64.9 - ANEMIA, UNSPECIFIED (3) History of gastric cancer Current Visit: Yes Status: Acute Code(s): Z85.028 - PERSONAL HISTORY OF OTHER MALIGNANT NEOPLASM OF STOMACH (4) Coronary artery disease Current Visit: Yes Status: Acute Code(s): I25.10 - ATHSCL HEART DISEASE OF [place] CORONARY ARTERY W/O ANG PCTRS (5) Acute on chronic renal insufficiency Current Visit: Yes Status: Acute Assessment & Plan: improved with hydration, appears to be at his baseline currently Code(s): N28.9 - DISORDER OF KIDNEY AND URETER, UNSPECIFIED; N18.9 - CHRONIC KIDNEY DISEASE, UNSPECIFIED
[2018-07-31] MEDS: NORVASC 5 MG PO SCH (09:13)
[2018-07-31] MEDS: Lopressor 25MG Tab PO SCH ×2 (09:13→21:38)
[2018-07-31] MEDS: Imdur 60MG PO SCH ×2 (09:13→21:37)
[2018-07-31] MEDS: ECOTRIN 81 MG PO SCH (09:13)
[2018-07-31] MEDS: ELIQUIS 2.5 MG TABLET PO SCH ×2 (09:14→21:37)
[2018-07-31] MEDS: Proscar 5 MG PO SCH (09:14)
[2018-07-31] MEDS: Protonix 40MG Tablet PO SCH (09:14)
[2018-07-31 12:31] LABS: ANISOCYTOSIS 2+; Eosinophil 3 % (0.00-3.0); Lymphocytes 25 % (24-44); Monocyte 6 % (0.0-12.0); Neutrophils 66 % (36.-66.); Platelet Estimate NORMAL (NORMAL); Poikilocytosis 2+; Total Cells Counted 100; Toxic Granulation 1+
[2018-07-31 12:32] LABS: Hypochromia 1+
[2018-07-31] MEDS: MORPHINE SULFATE 4 MG INJ IV PRN (14:39)
[2018-07-31] MEDS: Zocor 10MG PO SCH (21:37)
[2018-07-31] MEDS: Flomax 0.4 MG PO SCH (21:37)
[2018-08-01] MEDS: Sodium Chloride 0.9% 1000 ML 1,000 ML IV SCH (00:23)
[2018-08-01 05:55] LABS: Hematocrit 29.6 % (42-50); Hemoglobin 9.3 gm/dl (12.5-18.0); Mean Cell Volume 98.7 fl (78-100); Mean Corpuscular Hgb Concent. 31.4 g/dl (32-36); Mean Platelet Volume 10.5 fl (6-9.5); Platelet Count 202 K/mm3 (150-450); Red Cell Distribution Width 20.3 % (11.5-14.0); White Blood Count 3.4 K/mm3 (4.0-10.5)
[2018-08-01 06:43] LABS: ALBUMIN 2.8 g/dL (3.5-5.0); ANION GAP 9.4 MEQ/L (5-15); BILIRUBIN,TOTAL 0.6 mg/dL (0.2-1.3); Calcium 8.5 mg/dL (8.4-10.2); Creatinine 1 1.67 mg/dL (0.66-1.25); Potassium 4.1 mmol/L (3.5-5.1); Total Protein 5.4 g/dL (6.3-8.2)
[2018-08-01 07:11] LABS: BAND 13 % (0.0-2.0); Eosinophil 5 % (0.00-3.0); Lymphocytes 20 % (24-44); Metamyelocyte 1 %; Monocyte 13 % (0.0-12.0); Neutrophils 48 % (36.-66.); Total Cells Counted 100
[2018-08-01 07:13] LABS: Platelet Estimate NORMAL (NORMAL)
[2018-08-01 07:14] LABS: ANISOCYTOSIS 1+; Poikilocytosis 1+
[2018-08-01 07:16] LABS: Granulocyte Absolute (ANC) 2.06 (1.4-6.9)
[2018-08-01 07:35] VITALS: BP 191/84; PULSE 62; O2SAT 97
--- NOTE | 2018-08-01 08:19 | PCM.DS ---
Discharge Summary Date of Admission: 07/30/18 08:21 Admitting Physician: BOBBY ALVARADO Primary Care Provider: BOBBY ALVARADO Allergies Allergies No Known Drug Allergies Allergy (Unverified 07/29/18 10:45) Hospital Summary - Hospital Course Hospital Course: patient with no local physician was admitted with abdominal pain and nausea, complicated medical history including gastric cancer. hx of recent SBO, has renal stents. kidney function improved, patient is tolerating regular diet - Vitals & Intake/Output Vital Signs: Vital Signs Temperature 98.1 F 08/01/18 07:22 Pulse Rate 62 08/01/18 07:22 Respiratory Rate 18 08/01/18 07:22 Blood Pressure 191/84 08/01/18 07:22 O2 Sat by Pulse Oximetry 97 08/01/18 07:22 Intake & Output: Intake & Output 07/29/18 07/30/18 07/31/18 08/01/18 11:59 11:59 11:59 11:59 Intake Total 1834 3450 3957 Output Total 700 Balance 1834 2750 3957 Weight 81.647 kg 91.4 kg 93.1 kg 94 kg - Lab Result Diagrams: 08/01/18 05:21 08/01/18 05:21 Lab Results-Last 24 Hrs: Lab Results-Last 24 Hours 07/31/18 08/01/18 08/01/18 Range/Units 05:20 05:21 05:21 WBC 3.4 L (4.0-10.5) K/mm3 RBC 3.00 L (4.1-5.6) M/mm3 Hgb 9.3 L (12.5-18.0) gm/dl Hct 29.6 L (42-50) % MCV 98.7 (78-100) fl MCH 31.0 (26-32) pg MCHC 31.4 L (32-36) g/dl RDW 20.3 H (11.5-14.0) % Plt Count 202 (150-450) K/mm3 MPV 10.5 H (6-9.5) fl Absolute Granulocytes 2.06 (1.4-6.9) Segmented Neutrophils 66 48 (36.-66.) % Band Neutrophils 13 H (0.0-2.0) % Lymphocytes (Manual) 25 20 L (24-44) % Monocytes (Manual) 6 13 H (0.0-12.0) % Eosinophils (Manual) 3 5 H (0.00-3.0) % Metamyelocytes 1 % Hypochromia 1+ Toxic Granulation 1+ Platelet Estimate NORMAL NORMAL (NORMAL) RBC Morphology ABNORMAL ABNORMAL Poikilocytosis 2+ 1+ Anisocytosis 2+ 1+ Sodium 142 (137-145) mmol/L Potassium 4.1 (3.5-5.1) mmol/L Chloride 117 H (98-107) mmol/L Carbon Dioxide 20 L (22-30) mmol/L Anion Gap 9.4 (5-15) MEQ/L BUN 18 (9-20) mg/dL Creatinine 1.67 H (0.66-1.25) mg/dL Estimated GFR 43.2 ML/MIN Glucose 98 (74-106) mg/dL Calcium 8.5 (8.4-10.2) mg/dL Total Bilirubin 0.60 (0.2-1.3) mg/dL AST 23 (17-59) U/L ALT 21 (0-50) U/L Alkaline Phosphatase 159 H (38-126) U/L Serum Total Protein 5.4 L (6.3-8.2) g/dL Albumin 2.8 L (3.5-5.0) g/dL Micro Results-Entire Visit: Microbiology 07/29/18 13:35 Urine Culture - Final Clean Catch Midstream NO GROWTH - Procedures and Test Procedures and Tests throughout Hospitalization: Therapy Orders & Screens 07/29/18 23:30 Oxygen NASAL CANNULA 2 lpm Comment: Diagnosis: abdominal pain Discharge Exam General Appearance: no apparent distress, alert Skin Exam: normal color, warm, dry Respiratory Exam: normal breath sounds, lungs clear, No respiratory distress Cardiovascular Exam: regular rate/rhythm, normal heart sounds Gastrointestinal/Abdomen Exam: soft, No tenderness, No mass Extremity Exam: normal inspection, normal range of motion Final Diagnosis/Problem List - Final Discharge Diagnosis/Problem (1) Partial small bowel obstruction Current Visit: Yes Status: Acute Onset Date: ~07/29/18 Assessment & Plan: resolved (2) Anemia Current Visit: Yes Status: Acute Onset Date: ~07/29/18 Assessment & Plan: doing well s/p transfusion (3) History of gastric cancer Current Visit: Yes Status: Chronic (4) Coronary artery disease Current Visit: Yes Status: Chronic (5) Acute on chronic renal insufficiency Current Visit: Yes Status: Acute Onset Date: ~07/29/18 Assessment & Plan: improved - Discharge Disposition: Home, Self-Care Condition: Good Prescriptions: Continue Tamsulosin HCl 0.4 mg PO HS Metoprolol Tartrate 25 mg PO BID Finasteride 5 mg PO DAILY Atorvastatin Calcium 10 mg PO HS Amlodipine Besylate 2.5 mg PO DAILY PANTOPRAZOLE 40 mg Tablet [Protonix 40MG Tablet] 40 mg PO DAILY Nitroglycerin 0.3 mg SL Q5MIN PRN MR X 3 PRN PRN Reason: Pain Aspirin 81 mg PO DAILY Isosorbide Mononitrate [Isosorbide Mononitrate ER] 60 mg PO BID Apixaban [Eliquis] 5 mg PO BID #14 tablet Follow up with: BOBBY ALVARADO MD [Primary Care Provider] - 1 Week
[2018-08-01] MEDS: NORVASC 5 MG PO SCH (09:21)
[2018-08-01] MEDS: ELIQUIS 2.5 MG TABLET PO SCH (09:23)
[2018-08-01] MEDS: Lopressor 25MG Tab PO SCH (09:23)
[2018-08-01] MEDS: Imdur 60MG PO SCH (09:24)
[2018-08-01] MEDS: Protonix 40MG Tablet PO SCH (09:24)
[2018-08-01] MEDS: ECOTRIN 81 MG PO SCH (09:24)
== END 2018-08-01 10:14 | disposition home or self-care (01) | DRG 390 ==
LOC: ED 10:26 → MED SURG 15:18 → OBSVTOIN 07-30 08:21
PROVIDERS: ADMIT Family Medicine; ATTEND Family Medicine
DX: K56.600 Partial intestinal obstruction, unspecified as to cause (principal); D64.9 Anemia, unspecified; Z85.028 Personal history of other malignant neoplasm of stomach; I25.10 Atherosclerotic heart disease of native coronary artery without angina pectoris; R10.33 Periumbilical pain; I12.9 Hypertensive chronic kidney disease with stage 1 through stage 4 chronic kidney disease, or unspecified chronic kidney disease; N18.9 Chronic kidney disease, unspecified; Z79.01 Long term (current) use of anticoagulants; I51.7 Cardiomegaly; J90 Pleural effusion, not elsewhere classified; R18.8 Other ascites; I10 Essential (primary) hypertension; E78.00 Pure hypercholesterolemia, unspecified; R10.9 Unspecified abdominal pain; I25.2 Old myocardial infarction; J44.9 Chronic obstructive pulmonary disease, unspecified; K21.9 Gastro-esophageal reflux disease without esophagitis; N28.9 Disorder of kidney and ureter, unspecified; M79.89 Other specified soft tissue disorders; K56.609 Unspecified intestinal obstruction, unspecified as to partial versus complete obstruction; Z79.899 Other long term (current) drug therapy
CPT/HCPCS: 36000; 36415; 36430; 74176; 80053; 81001; 82150; 82962; 83690; 83735; 85014; 85018; 85025; 86850; 86900; 86901; 86922; 87086; 93005; 93268; 94760; 94762; 96360; 99285; G0378; P9016; 96365; 96374; J1642; J1940; J2270; A9270-GY

== ENCOUNTER 2018-08-11 16:10 | Inpatient (IN) | payer MEDICARE ==
[2018-08-11] MEDS ORDERED: MORPHINE SULFATE 4 MG INJ IV ONE (16:43)
[2018-08-11] MEDS ORDERED: Zofran 4 MG/2 ML VIAL IV ONE (16:43)
[2018-08-11] MEDS ORDERED: Sodium Chloride 0.9% 1000 ML 1,000 ML IV SCH (16:45)
--- NOTE | 2018-08-11 16:50 | ERPHSYRPT ---
- History of Present Illness Time Seen by Provider: 08/11/18 16:36 Historian: patient Exam Limitations: no limitations Patient Subjective Stated Complaint: abdominal pain for 4 days with diarhea and very loud bowel sounds Triage Nursing Assessment: Pt c/o of abdominal pain for the past four days with diarhea, denies N&V, only has 20% of stomach and partial esophagus due to stomach cancer this past year, hyperactive loud bowel sounds, BP 151/72, rates pain 10/10 which comes and goes and will be a 0/10, abdomen distended, decreased appetite, denies pain with palpatation Physician History: 72-year-old white male with history of macular degeneration, hypercholesterolemia, high blood pressure, myocardial infarction, COPD, GERD, stomach cancer, small bowel obstruction Patient arrives with complaint of pain in his abdomen which has been diffuse, persistent diarrhea, symptoms for 4 days. Patient had been seen approximately 12 days ago secondary to the same. At that time he is noted to have a bowel obstruction he resolved with IV fluids she was also given transfusion of 2 units of packed red cells. Patient states the pain has gradually returned to become markedly worse over the past 4 days. Past medical history includes macular degeneration, hypercholesterolemia, high blood pressure, myocardial infarction, COPD, GERD, stomach cancer, bowel blockage, anemia, chronic renal failure Past surgical history includes PowerPort, 80% of the stomach removed, part of the esophagus removed, colonoscopy, cardiac stents, appendectomy, hernia repair , bilateral carpal tunnel Social history former smoker Timing/Duration: day(s) (4 days) Activities at Onset: none Quality: cramping Abdominal Pain Onset Location: generalized abdomen Pain Radiation: no radiation Severity of Pain-Max: moderate Severity of Pain-Current: moderate Modifying Factors: Improves With: nothing Associated Symptoms: diarrhea, No back, No chest pain, No diaphoresis, No fever/ chills, No fatigue, No headache, No heartburn, No loss of appetite, No nausea, No neck pain, No shortness of breath, No syncope, No testicular pain, No vomiting, No weakness Previous symptoms: same symptoms as today (patient with small bowel obstruction 12 days ago) Allergies/Adverse Reactions: No Known Drug Allergies Allergy (Verified 08/11/18 16:35) Home Medications: Amlodipine Besylate 2.5 mg PO DAILY 07/29/18 [History] Aspirin 81 mg PO DAILY 07/29/18 [History] Atorvastatin Calcium 10 mg PO HS 07/29/18 [History] Finasteride 5 mg PO DAILY 07/29/18 [History] Isosorbide Mononitrate [Isosorbide Mononitrate ER] 60 mg PO BID 07/29/18 [ History] Metoprolol Tartrate 25 mg PO BID 07/29/18 [History] Nitroglycerin 0.3 mg SL Q5MIN PRN MR X 3 PRN 07/29/18 [History] PANTOPRAZOLE 40 mg Tablet [Protonix 40MG Tablet] 40 mg PO DAILY 07/29/18 [ History] Tamsulosin HCl 0.4 mg PO HS 07/29/18 [History] Hx Tetanus, Diphtheria Vaccination/Date Given: No Hx Influenza Vaccination/Date Given: No Hx Pneumococcal Vaccination/Date Given: No - Review of Systems Constitutional: No Fever, No Chills Eyes: No Symptoms Ears, Nose, & Throat: No Symptoms Respiratory: No Cough, No Dyspnea Cardiac: No Chest Pain, No Edema, No Syncope Abdominal/Gastrointestinal: Abdominal Pain, Diarrhea, No Nausea, No Vomiting, No Constipation, No Hematemesis, No Hematochezia, No Melena, No Dysphagia, No Appetite Changes Genitourinary Symptoms: No Dysuria Musculoskeletal: No Back Pain, No Neck Pain Skin: No Rash Neurological: No Dizziness, No Focal Weakness, No Sensory Changes Psychological: No Symptoms Endocrine: No Symptoms All Other Systems: Reviewed and Negative - Past Medical History Pertinent Past Medical History: Yes Neurological History: No Pertinent History ENT History: Macular Degeneration Cardiac History: High Cholesterol, Hypertension, Myocardial Infarction ([place]) Respiratory History: COPD Endocrine Medical History: No Pertinent History Musculoskeletal History: No Pertinent History GI Medical History: GERD, Other History: Renal Disease Psycho-Social History: No Pertinent History Male Reproductive Disorders: No Pertinent History Other Medical History: stomach cancer. bowel blockage. carpel tunnel - Past Surgical History Past Surgical History: Yes Cardiac: Cardiac Stent Gastrointestinal: Appendectomy, Hernia Repair Other Surgical History: power port. 80% of stomach removed. part of esophagus removed. colonoscopy. filter for blood clot - Social History Smoking Status: Former smoker Exposure to second hand smoke: No Drug Use: none Patient Lives Alone: No - Nursing Vital Signs Nursing Vital Signs: Initial Vital Signs Temperature 97.6 F 08/11/18 16:17 Pulse Rate 59 L 08/11/18 16:17 Blood Pressure 151/72 08/11/18 16:17 O2 Sat by Pulse Oximetry 99 08/11/18 16:17 Pain Scale Pain Intensity 10 - Physical Exam General Appearance: moderate distress, alert Eye Exam: PERRL/EOMI, eyes nml inspection Ears, Nose, Throat Exam: normal ENT inspection, pharynx normal, moist mucous membranes Neck Exam: normal inspection, non-tender, supple, full range of motion Respiratory Exam: normal breath sounds, lungs clear, No respiratory distress Cardiovascular Exam: regular rate/rhythm, normal heart sounds, normal peripheral pulses, capillary refill <2 sec Gastrointestinal/Abdomen Exam: other (abdomen mildly firm, high pitched bowel sounds, diffuse tenderness, no guarding) Male Genitalia Exam: other (rectal normal sphincter tone , no blood, no masses) Back Exam: normal inspection, normal range of motion, No CVA tenderness, No vertebral tenderness Extremity Exam: normal inspection, normal range of motion, pelvis stable Neurologic Exam: alert, oriented x 3, cooperative, 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 Large right renal cyst. Fluid distended small/large bowel loops with fluid levels. Sigmoid diverticulosis and inferior vena cava filter, nothing new.) Ordered Tests: Active Orders 24 hr Category Date Time Status IV Insertion STAT Care 08/11/18 16:43 Active ABDOMEN AND PELVIS W/0 CONTRAS [CT] Stat Exams 08/11/18 16:44 Taken AMYLASE Stat Lab 08/11/18 17:10 Completed CBC W DIFF Stat Lab 08/11/18 17:10 Completed CMP Stat Lab 08/11/18 17:10 Completed LIPASE Stat Lab 08/11/18 17:10 Completed Manual Differential NC Stat Lab 08/11/18 17:10 Completed Occult Blood,Stool Other Stat Lab 08/11/18 18:00 Completed UA W/RFX UR CULTURE Stat Lab 08/11/18 16:44 Uncollected Transfer Order Routine Transfer 08/11/18 Ordered Medication Summary Generic Name Dose Route Start Last Admin Trade Name Lenora PRN Reason Stop Dose Admin Sodium Chloride 1,000 mls @ 100 mls/hr 08/11/18 16:45 08/11/18 17:44 Sodium Chloride 0.9% 1000 Ml IV 09/10/18 16:44 100 mls/hr .Q10H KG Administration Discontinued Medications Generic Name Dose Route Start Last Admin Trade Name Lenora PRN Reason Stop Dose Admin Morphine Sulfate 4 mg 08/11/18 16:43 08/11/18 17:44 Morphine Sulfate 4 Mg Inj IV 08/11/18 16:44 4 mg STAT ONE Administration Morphine Sulfate Confirm 08/11/18 17:42 Morphine Sulfate 4 Mg Inj Administered 08/11/18 17:43 Dose 4 mg .ROUTE .STK-MED ONE Ondansetron HCl 4 mg 08/11/18 16:43 08/11/18 17:44 Zofran 4 Mg/2 Ml Vial IV 08/11/18 16:44 4 mg STAT ONE Administration Ondansetron HCl Confirm 08/11/18 17:42 Zofran 4 Mg/2 Ml Vial Administered 08/11/18 17:43 Dose 4 mg .ROUTE .STK-MED ONE Lab/Rad Data: Laboratory Result Diagrams 08/11/18 17:10 08/11/18 17:10 Laboratory Results 08/11/18 08/11/18 08/11/18 Range/Units 18:00 17:10 17:10 WBC 6.2 (4.0-10.5) K/mm3 RBC 3.08 L (4.1-5.6) M/mm3 Hgb 9.6 L (12.5-18.0) gm/dl Hct 30.4 L (42-50) % MCV 98.7 (78-100) fl MCH 31.1 (26-32) pg MCHC 31.6 L (32-36) g/dl RDW 19.2 H (11.5-14.0) % Plt Count 252 (150-450) K/mm3 MPV 11.0 H (6-9.5) fl Sodium 139 (137-145) mmol/L Potassium 4.4 (3.5-5.1) mmol/L Chloride 115 H (98-107) mmol/L Carbon Dioxide 18 L (22-30) mmol/L Anion Gap 10.4 (5-15) MEQ/L BUN 34 H (9-20) mg/dL Creatinine 2.53 H (0.66-1.25) mg/dL Estimated GFR 26.7 ML/MIN Glucose 104 (74-106) mg/dL Calcium 8.8 (8.4-10.2) mg/dL Total Bilirubin 0.70 (0.2-1.3) mg/dL AST 19 (17-59) U/L ALT 15 (0-50) U/L Alkaline Phosphatase 144 H (38-126) U/L Serum Total Protein 5.9 L (6.3-8.2) g/dL Albumin 3.3 L (3.5-5.0) g/dL Amylase 36 (30-110) U/L Lipase 32 (23-300) U/L Stool Occult Blood NEGATIVE (Negative) - Progress Progress: improved Progress Note: 08/11/18 18:17 72-year-old white male with history of macular degeneration, hypercholesterolemia, high blood pressure, [place], COPD, GERD, stomach cancer, bowel blockage . patient arrives with complaint of diarrhea and diffuse abdominal pain which has been going on for 4 days. Patient was seen to 12 days ago for similar symptoms he does have a history of stomach cancer. At that time he is noted to have a small bowel obstruction he improved with IV fluids he was given a transfusion of 2 units packed red blood cells at that time. Patient in moderate distress on arrival he is diffusely tender with palpation bowel sounds are positive. And are high pitched. I've gotten a CT of the patient's abdomen. CT remarkable for no change compared to July 29, 2018, there is cardiomegaly with small bibasilar effusions, diffuse ascites, bilateral hydronephrosis and right ureteral stent, which is in good position. There is a large right renal cyst, fluid distended small and large bowel loops with fluid levels. Sigmoid diverticulosis with inferior vena cava filter is seen. There is nothing new on this exam as compared to prior. Patient's labs are essentially stable. Patient has not provided a urine yet. I've discussed the patient's case with Dr. Alvarado. Will place patient on observation keep patient nothing by mouth provide IV morphine for pain Zofran for vomiting and nausea. Will obtain surgery consult on the patient. Diagnosis abdominal pain. Small bowel obstruction. - Departure Time of Disposition: 18:21 Departure Disposition: Observation Clinical Impression: Small bowel obstruction Abdominal pain Qualifiers: Abdominal location: generalized Qualified Code(s): R10.84 - Generalized abdominal pain Condition: Fair Critical Care Time: No Referrals: BOBBY ALVARADO MD [Primary Care Provider] -
[2018-08-11 17:21] LABS: Hematocrit 30.4 % (42-50); Hemoglobin 9.6 gm/dl (12.5-18.0); Mean Cell Volume 98.7 fl (78-100); Mean Corpuscular Hgb Concent. 31.6 g/dl (32-36); Platelet Count 252 K/mm3 (150-450); Red Blood Count 3.08 M/mm3 (4.1-5.6); Red Cell Distribution Width 19.2 % (11.5-14.0); White Blood Count 6.2 K/mm3 (4.0-10.5)
[2018-08-11 17:23] LABS: Mean Corpuscular Hemoglobin 31.1 pg (26-32)
[2018-08-11] MEDS ORDERED: Zofran 4 MG/2 ML VIAL ONE (17:42)
[2018-08-11] MEDS ORDERED: Sodium Chloride 0.9% 1000 ML 1,000 ML ONE (17:42)
[2018-08-11] MEDS ORDERED: MORPHINE SULFATE 4 MG INJ ONE (17:42)
[2018-08-11 18:01] LABS: ALBUMIN 3.3 g/dL (3.5-5.0); BILIRUBIN,TOTAL 0.7 mg/dL (0.2-1.3); Calcium 8.8 mg/dL (8.4-10.2); Creatinine 1 2.53 mg/dL (0.66-1.25); Total Protein 5.9 g/dL (6.3-8.2)
[2018-08-11 18:10] LABS: ANION GAP 10.4 MEQ/L (5-15); Potassium 4.4 mmol/L (3.5-5.1)
[2018-08-11] MEDS ORDERED: Zofran 4 MG/2 ML VIAL IV PRN (18:47)
[2018-08-11 19:13] LABS: Appearance CLEAR (CLEAR); Bilirubin NEGATIVE (NEGATIVE); Blood MODERATE Ery/ul (0-5); Glucose NEGATIVE (NEGATIVE); Ketones NEGATIVE (NEGATIVE); Leukocyte Esterase SMALL (NEGATIVE); Nitrite NEGATIVE (NEGATIVE); Protein,Urine Dip NEGATIVE (Negative); Specific Gravity 1.012 (1.005-1.025); Urobilinogen NEGATIVE mg/dL (0-1)
[2018-08-11] MEDS: Imdur 60MG PO SCH (21:32)
[2018-08-11] MEDS: Flomax 0.4 MG PO SCH (21:33)
[2018-08-11] MEDS: Lopressor 25MG Tab PO SCH (21:33)
[2018-08-11] MEDS: ELIQUIS 2.5 MG TABLET PO SCH (21:33)
[2018-08-11] MEDS: MORPHINE SULFATE 4 MG INJ IV PRN (21:34)
[2018-08-12] MEDS: Sodium Chloride 0.9% 1000 ML 1,000 ML IV SCH ×2 (04:15→19:29)
[2018-08-12 06:14] LABS: BASOPHIL % 0.7 % (0.0-0.4); Basophil (Absolute #) 0.02 (0-0.4); Eosinophil (Absolute #) 0.11 (0-0.5); Granulocyte Absolute (ANC) 1.45 (1.4-6.9); Granulocytes % 53.2 % (36.0-66.0); Hematocrit 30.5 % (42-50); Hemoglobin 9.5 gm/dl (12.5-18.0); Lymphocyte (Absolute #) 0.69 (1.0-4.6); Lymphocytes % 25.3 % (24.0-44.0); Mean Cell Volume 99.7 fl (78-100); Mean Corpuscular Hgb Concent. 31.1 g/dl (32-36); Mean Platelet Volume 10.5 fl (6-9.5); Monocyte (Absolute #) 0.46 (0.0-1.3); Monocytes % 16.8 % (0.0-12.0); Platelet Count 255 K/mm3 (150-450); Red Blood Count 3.06 M/mm3 (4.1-5.6); White Blood Count 2.7 K/mm3 (4.0-10.5)
[2018-08-12 06:44] LABS: ALBUMIN 3.1 g/dL (3.5-5.0); ANION GAP 12.9 MEQ/L (5-15); BILIRUBIN,TOTAL 0.8 mg/dL (0.2-1.3); Calcium 8.5 mg/dL (8.4-10.2); Creatinine 1 2.63 mg/dL (0.66-1.25); Potassium 4.7 mmol/L (3.5-5.1); Total Protein 5.8 g/dL (6.3-8.2)
--- NOTE | 2018-08-12 08:54 | XRAY ---
Indication: Abdominal pain. History stomach cancer with surgery. Multiple contiguous axial images obtained through the abdomen and pelvis without contrast as ordered. Comparison: July 29, 2018. Lung bases again demonstrates small bibasilar effusions with compressive atelectasis. Heart remains borderline enlarged again with pericardial effusion/thickening. Stable small hiatal hernia. Stable moderate diffuse abdomen/pelvic ascites. No free air. Stable left upper quadrant gastric and bowel suture material. Small and large bowel loops remain mildly fluid distended with synchronous fluid leveling, again ileus versus enteritis. Stable sigmoid diverticulosis. Both kidneys remain hydronephrotic with stable right double-J ureteral stent catheter in good position. Stable large exophytic right upper pole renal cyst, contracted gallbladder with stone, IVC filter, and enlarged prostate gland. Remaining liver, pancreas, spleen, adrenal glands, and bladder appear unremarkable for noncontrast exam. There remains heavy scattered vascular calcifications without AAA. Impression: Essentially stable CT abdomen/pelvis without contrast exam again demonstrating borderline cardiomegaly, bibasilar effusions, hiatal hernia, ascites, fluid distended bowel loops either ileus versus enteritis, sigmoid diverticulosis, bilateral hydronephrosis with right ureteral stent catheter, right renal cyst, gallstone, and enlarged prostate gland. CT DI 21.22
--- NOTE | 2018-08-12 09:16 | PCM.HP ---
History of Present Illness - Chief Complaint Chief Complaint: small bowel obs/abd pain History of Present Illness: is a 72 year old male pt of Dr. Maurer with PMHx gastric cancer, [place], COPD, GERD, and SBO who came in to ER yesterday c/o periumbilical pain. Pain was "12-13"/10, non radiating. Had nausea no vomiting (except after morphine in ER). No fever. No melena/hematochezia. He was dx with gastric cancer in Jul and had 80% of his stomach and part of his esophagus removed in October 2017. Also received chemotherapy and radiation. This was done in [place]. Currently pt is denying pain. [place] much better after 2 large liquid frothy BMs about 4 a.m. today. He had been admitted to [facility] in the past 1-2 weeks and treated for abd pain. It improved but did not resolve; he was sent home. The pain worsened 3-4 d ago. - Review of Systems Respiratory: Cough (chronic x years) Cardiac: Edema (chronic) Abdominal/Gastrointestinal: Abdominal Pain, Nausea, Vomiting, Diarrhea Psychological: Depression, No Suicidal Ideations All Other Systems: Reviewed and Negative Medications & Allergies Home Medications: Home Medication List Amlodipine Besylate 2.5 mg PO DAILY 07/29/18 [History Confirmed 08/11/18] Aspirin 81 mg PO DAILY 07/29/18 [History Confirmed 08/11/18] Atorvastatin Calcium 10 mg PO HS 07/29/18 [History Confirmed 08/11/18] Finasteride 5 mg PO DAILY 07/29/18 [History Confirmed 08/11/18] Isosorbide Mononitrate [Isosorbide Mononitrate ER] 60 mg PO BID 07/29/18 [ History Confirmed 08/11/18] Metoprolol Tartrate 25 mg PO BID 07/29/18 [History Confirmed 08/11/18] Nitroglycerin 0.3 mg SL Q5MIN PRN MR X 3 PRN 07/29/18 [History Confirmed ] PANTOPRAZOLE 40 mg Tablet [Protonix 40MG Tablet] 40 mg PO DAILY 07/29/18 [ History Confirmed 08/11/18] Tamsulosin HCl 0.4 mg PO HS 07/29/18 [History Confirmed 08/11/18] Apixaban [Eliquis] 5 mg PO BID #14 tablet 08/01/18 [Rx Confirmed 08/11/18] Allergies/Adverse Reactions: Allergies Allergy/AdvReac Type Severity Reaction Status Date / Time No Known Drug Allergies Allergy Verified 08/11/18 16:35 - Past Medical History Past Medical History: Yes Neurological History: No Pertinent History ENT History: Macular Degeneration Cardiac History: High Cholesterol, Hypertension, Myocardial Infarction ([place]) Respiratory History: COPD Endocrine Medical History: No Pertinent History, Other Musculoskelatal History: Other GI Medical History: GERD, Other History: Renal Disease Pyscho-Social History: No Pertinent History Male Reproductive Disorders: No Pertinent History Comment: stomach cancer. bowel blockage. carpel tunnel. part of esophagus removed - Past Surgical History Past Surgical History: Yes Neuro Surgical History: No Pertinent History Cardiac History: Cardiac Stent Respiratory Surgery: No Pertinent History GI Surgical History: Appendectomy, Hernia Repair Genitourinary Surgical Hx: No Pertinent History Musculskeletal Surgical Hx: No Pertinent History Male Surgical History: No Pertinent History Other Surgical History: power port. 80% of stomach removed. part of esophagus removed. colonoscopy. filter for blood clot - Social History Smoking Status: Former smoker Exposure to second hand smoke: No Alcohol: None Drug Use: none - Physical Exam Vital Signs: Vital Signs - 24 hr Temp Pulse Resp BP Pulse Ox 08/12/18 07:14 98.4 F 83 20 131/62 96 08/12/18 04:00 98.7 F 68 16 119/63 98 08/12/18 00:00 98.3 F 80 14 126/57 94 L 08/11/18 19:35 97.9 F 61 20 176/94 99 08/11/18 19:29 97.9 F 61 20 176/94 99 08/11/18 18:47 58 L 18 93 L 08/11/18 18:30 99 08/11/18 18:17 97.6 F 60 157/68 95 08/11/18 16:17 97.6 F 59 L 151/72 99 General Appearance: no apparent distress, alert Neurologic Exam: oriented x 3, cooperative Eye Exam: eyes nml inspection Ears, Nose, Throat Exam: moist mucous membranes Neck Exam: normal inspection Respiratory Exam: normal breath sounds, lungs clear, No crackles/rales, No rhonchi, No wheezing Cardiovascular Exam: regular rate/rhythm, normal heart sounds, No murmur Gastrointestinal/Abdomen Exam: soft, No normal bowel sounds (high pitched), No tenderness, No distention, No mass, No guarding, No rebound Back Exam: normal inspection, No rash Extremity Exam: normal inspection, No pedal edema, No swelling Skin Exam: normal color, warm, dry, No rash Results - Labs Lab/Micro Results: Lab Results-Last 24 Hours 08/11/18 08/11/18 08/11/18 Range/Units 17:10 17:10 18:00 WBC 6.2 (4.0-10.5) K/mm3 RBC 3.08 L (4.1-5.6) M/mm3 Hgb 9.6 L (12.5-18.0) gm/dl Hct 30.4 L (42-50) % MCV 98.7 (78-100) fl MCH 31.1 (26-32) pg MCHC 31.6 L (32-36) g/dl RDW 19.2 H (11.5-14.0) % Plt Count 252 (150-450) K/mm3 MPV 11.0 H (6-9.5) fl Gran % (36.0-66.0) % Eos # (Auto) (0-0.5) Absolute Lymphs (auto) (1.0-4.6) Absolute Monos (auto) (0.0-1.3) Lymphocytes % (24.0-44.0) % Monocytes % (0.0-12.0) % Eosinophils % (0.00-5.0) % Basophils % (0.0-0.4) % Absolute Granulocytes (1.4-6.9) Basophils # (0-0.4) Sodium 139 (137-145) mmol/L Potassium 4.4 (3.5-5.1) mmol/L Chloride 115 H (98-107) mmol/L Carbon Dioxide 18 L (22-30) mmol/L Anion Gap 10.4 (5-15) MEQ/L BUN 34 H (9-20) mg/dL Creatinine 2.53 H (0.66-1.25) mg/dL Estimated GFR 26.7 ML/MIN Glucose 104 (74-106) mg/dL Calcium 8.8 (8.4-10.2) mg/dL Total Bilirubin 0.70 (0.2-1.3) mg/dL AST 19 (17-59) U/L ALT 15 (0-50) U/L Alkaline Phosphatase 144 H (38-126) U/L Serum Total Protein 5.9 L (6.3-8.2) g/dL Albumin 3.3 L (3.5-5.0) g/dL Amylase 36 (30-110) U/L Lipase 32 (23-300) U/L Urine Color (YELLOW) Urine Appearance (CLEAR) Urine pH (5-6) Ur Specific [place] (1.005-1.025) Urine Protein (Negative) Urine Ketones (NEGATIVE) Urine Blood (0-5) Alex/ul Urine Nitrite (NEGATIVE) Urine Bilirubin (NEGATIVE) Urine Urobilinogen (0-1) mg/dL Ur Leukocyte Esterase (NEGATIVE) Urine WBC (Auto) (0-5) /HPF Urine RBC (Auto) (0-2) /HPF U Hyaline Cast (Auto) (0-2) /LPF U Epithel Cells (Auto) (FEW) /HPF Urine Bacteria (Auto) (NEGATIVE) /HPF Urine Mucus (Auto) (NEGATIVE) /HPF Urine Culture Reflexed (NO) Urine Glucose (NEGATIVE) mg/dL Stool Occult Blood NEGATIVE (Negative) 08/11/18 08/12/18 08/12/18 Range/Units 18:53 05:48 05:48 WBC 2.7 L (4.0-10.5) K/mm3 RBC 3.06 L (4.1-5.6) M/mm3 Hgb 9.5 L (12.5-18.0) gm/dl Hct 30.5 L (42-50) % MCV 99.7 (78-100) fl MCH 31.0 (26-32) pg MCHC 31.1 L (32-36) g/dl RDW 19.0 H (11.5-14.0) % Plt Count 255 (150-450) K/mm3 MPV 10.5 H (6-9.5) fl Gran % 53.2 (36.0-66.0) % Eos # (Auto) 0.11 (0-0.5) Absolute Lymphs (auto) 0.69 L (1.0-4.6) Absolute Monos (auto) 0.46 (0.0-1.3) Lymphocytes % 25.3 (24.0-44.0) % Monocytes % 16.8 H (0.0-12.0) % Eosinophils % 4.0 (0.00-5.0) % Basophils % 0.7 (0.0-0.4) % Absolute Granulocytes 1.45 (1.4-6.9) Basophils # 0.02 (0-0.4) Sodium 143 (137-145) mmol/L Potassium 4.7 (3.5-5.1) mmol/L Chloride 118 H (98-107) mmol/L Carbon Dioxide 16 L* (22-30) mmol/L Anion Gap 12.9 (5-15) MEQ/L BUN 37 H (9-20) mg/dL Creatinine 2.63 H (0.66-1.25) mg/dL Estimated GFR 25.6 ML/MIN Glucose 97 (74-106) mg/dL Calcium 8.5 (8.4-10.2) mg/dL Total Bilirubin 0.80 (0.2-1.3) mg/dL AST 185 H (17-59) U/L ALT 122 H (0-50) U/L Alkaline Phosphatase 240 H (38-126) U/L Serum Total Protein 5.8 L (6.3-8.2) g/dL Albumin 3.1 L (3.5-5.0) g/dL Amylase (30-110) U/L Lipase (23-300) U/L Urine Color YELLOW (YELLOW) Urine Appearance CLEAR (CLEAR) Urine pH 5.0 (5-6) Ur Specific [place] 1.012 (1.005-1.025) Urine Protein NEGATIVE (Negative) Urine Ketones NEGATIVE (NEGATIVE) Urine Blood MODERATE (0-5) Alex/ul Urine Nitrite NEGATIVE (NEGATIVE) Urine Bilirubin NEGATIVE (NEGATIVE) Urine Urobilinogen NEGATIVE (0-1) mg/dL Ur Leukocyte Esterase SMALL (NEGATIVE) Urine WBC (Auto) 6-10 (0-5) /HPF Urine RBC (Auto) 3-5 (0-2) /HPF U Hyaline Cast (Auto) 0-2 (0-2) /LPF U Epithel Cells (Auto) NONE (FEW) /HPF Urine Bacteria (Auto) NONE (NEGATIVE) /HPF Urine Mucus (Auto) SLIGHT (NEGATIVE) /HPF Urine Culture Reflexed YES (NO) Urine Glucose NEGATIVE (NEGATIVE) mg/dL Stool Occult Blood (Negative) - Radiology Impressions Radiology Exams & Impressions: Radiology Procedures Category Date Time Status ABDOMEN AND PELVIS W/0 CONTRAS [CT] Stat Exams 08/11/18 16:44 Taken Assessment/Plan (1) Abdominal pain Current Visit: Yes Status: Acute Onset Date: ~07/29/18 Qualifiers: Abdominal location: generalized Qualified Code(s): R10.84 - Generalized abdominal pain Assessment & Plan: surgery consulted, thank you. Hx gastric cancer. Pain is persistent over the past few weeks, but worsened yesterday. CT with ileus v enteritis. Better after BM this morning. Code(s): R10.9 - UNSPECIFIED ABDOMINAL PAIN (2) Elevated liver enzymes Current Visit: Yes Status: Acute Assessment & Plan: Yesterday were completely normal, and today AST 185, ALT 122, and alk phos 240. Concern about an obstruction - surgery to consult, thank you. Code(s): R74.8 - ABNORMAL LEVELS OF OTHER SERUM ENZYMES (3) Leukopenia Current Visit: Yes Status: Acute Qualifiers: Leukopenia type: neutropenia Assessment & Plan: pt moved to reverse isolation Code(s): D72.819 - DECREASED WHITE BLOOD CELL COUNT, UNSPECIFIED (4) Acute on chronic renal insufficiency Current Visit: No Status: Acute Onset Date: ~07/29/18 Assessment & Plan: Cr 2.63; was 2.53 on admission. I have ordered increased IV fluids to gently increase hydration over the next four hours. his lactate is elevated to 2.7. Cr was 1.67 on 08/01/18. Code(s): N28.9 - DISORDER OF KIDNEY AND URETER, UNSPECIFIED; N18.9 - CHRONIC KIDNEY DISEASE, UNSPECIFIED (5) Coronary artery disease Current Visit: No Status: Chronic Qualifiers: Coronary Disease-Associated Artery/Lesion type: [place] artery [place] vs. transplanted heart: [place] heart Associated angina: without angina Qualified Code(s): I25.10 - Atherosclerotic heart disease of [place] coronary artery without angina pectoris Assessment & Plan: [place] in Oct 2017 while on chemo. Code(s): I25.10 - ATHSCL HEART DISEASE OF [place] CORONARY ARTERY W/O ANG PCTRS (6) History of gastric cancer Current Visit: No Status: Chronic Assessment & Plan: Surgery done in [place], [place]. Pt moved up to [place] approx 1 mo ago. Code(s): Z85.028 - PERSONAL HISTORY OF OTHER MALIGNANT NEOPLASM OF STOMACH
[2018-08-12] MEDS ORDERED: Sodium Chloride 0.9% 1000 ML 1,000 ML IV SCH (09:30)
[2018-08-12] MEDS: Lopressor 25MG Tab PO SCH ×2 (10:02→21:28)
[2018-08-12] MEDS: ELIQUIS 2.5 MG TABLET PO SCH (10:02)
[2018-08-12] MEDS: Imdur 60MG PO SCH ×2 (10:02→21:28)
[2018-08-12] MEDS ORDERED: NITROGLYCERIN 0.3 MG SL PRN (10:40)
[2018-08-12] MEDS ORDERED: Nitrostat 0.4 MG Tablet SL PRN (10:42)
[2018-08-12] MEDS: PROTONIX 40 MG IV IV SCH (16:36)
[2018-08-12] MEDS: Flomax 0.4 MG PO SCH (21:28)
[2018-08-13 05:29] LABS: BASOPHIL % 0.7 % (0.0-0.4); Basophil (Absolute #) 0.02 (0-0.4); Eosinophil % 5.1 % (0.00-5.0); Eosinophil (Absolute #) 0.15 (0-0.5); Granulocyte Absolute (ANC) 1.93 (1.4-6.9); Granulocytes % 65.7 % (36.0-66.0); Hematocrit 26.8 % (42-50); Hemoglobin 8.3 gm/dl (12.5-18.0); Lymphocyte (Absolute #) 0.48 (1.0-4.6); Lymphocytes % 16.3 % (24.0-44.0); Mean Cell Volume 100.4 fl (78-100); Mean Platelet Volume 10.6 fl (6-9.5); Monocyte (Absolute #) 0.36 (0.0-1.3); Monocytes % 12.2 % (0.0-12.0); Platelet Count 189 K/mm3 (150-450); Red Blood Count 2.67 M/mm3 (4.1-5.6); Red Cell Distribution Width 18.7 % (11.5-14.0); White Blood Count 2.9 K/mm3 (4.0-10.5)
[2018-08-13] MEDS: Sodium Chloride 0.9% 1000 ML 1,000 ML IV SCH (05:29)
[2018-08-13 05:45] LABS: ALBUMIN 2.8 g/dL (3.5-5.0); ANION GAP 10.8 MEQ/L (5-15); BILIRUBIN,TOTAL 0.6 mg/dL (0.2-1.3); Calcium 8.3 mg/dL (8.4-10.2); Creatinine 1 2.42 mg/dL (0.66-1.25); Potassium 4.5 mmol/L (3.5-5.1); Total Protein 5.2 g/dL (6.3-8.2)
[2018-08-13 06:21] LABS: Slide Review 1 YES
--- NOTE | 2018-08-13 08:37 | CONS ---
CONSULT DATE: 08/12/2018 This patient is seen for Dr. 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 HISTORY: The patient is a 72 year-old with complex cyst removed, some sort of gastric cancer or whether esophageal-gastric he had part of his esophagus and 80% of his stomach supposedly removed in [place]. He had been getting chemo and radiation there in the past. He apparently had some abdominal pain and some diarrhea prior to that. He was admitted. He had fluid filled loops in bowel throughout. He had gas and stool in his colon. The radiologist questioned ileus or enteritis. He is actually feeling better today. He is having bowel movements today. Apparently when he was admitted he had distended bowel loops. He did not have an NG placed on admission yesterday. PAST MEDICAL HISTORY: Hypertension, reflux, chronic obstructive pulmonary disease, history of myocardial infarction in the past. He had colostomy. Macular degeneration. Hypertension in the past. PAST SURGICAL HISTORY: Cardiac stents. 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 He apparently had appendix and hernia repair in the past. He had inferior vena cava filter in the past. MEDICATIONS: Amlodipine, Eliquis, aspirin, atorvastatin, finasteride, metoprolol, nitroglycerin, pantoprazole, Tamsulosin. ALLERGIES: NKDA. FAMILY HISTORY: Negative in regards to this specific problem. SOCIAL HISTORY: Former smoker. No alcohol abuse. LAB DATA AND TESTS: CT scan fluid filled loops of bowel, question of ileus versus enteritis, hydronephrosis, right ureteral stent catheter. CT scan was reviewed with Dr. Phillip Gallardo. REVIEW OF SYSTEMS: Twelve systems reviewed per admission assessment. He is much more comfortable now. He is having bowel movements. PHYSICAL EXAMINATION: He has been afebrile here. Pulse 68, blood pressure 119/63. The rest of the vitals on the chart that I can find. GENERAL: A chronically ill gentleman in no acute distress. HEENT: Sclera nonicteric. NECK: No JVD. CHEST: Equal excursion, nonlabored breathing. CVS: Regular rhythm and pulse. ABDOMEN: Soft, mild distension. He has got a midline incision. No rebound. No guarding. No peritoneal signs. No palpable incarcerated hernia currently. EXTREMITIES: No significant edema. NEURO: Alert, moving extremities grossly symmetrically. IMPRESSION: A 72 year-old gentleman with abdominal with complex history of major surgery in [place]. He also has some kidney issues. He is to follow up there for urologist. He had some chemo and radiation in the past. He is passing bowel movements. No emergent surgery necessary. The patient is a rather poor surgical candidate here. Should he end up needing surgery at some point he might be best serviced to consider tertiary center unless Dr. Hartman has other thoughts. He had some renal issues. He had cardiac and medical problems. He had some neutropenia. White blood cell count 2.7, hemoglobin 9.5, PLT 255,000. He definitely needs to follow up with the oncologist. Whether any of these bowel issues could related to carcinomatosis is unclear as he has a little bit of ascites but again he has a soft abdomen. No peritoneal signs. No need for any emergent surgery. He is passing bowel movements now. I feel he needs to see oncologist and he may need tertiary follow up as I do not feel he is a surgical candidate for here at [facility]. It is unclear whether he has liver issues or whether some hepatic congestion or other etiology. His total bilirubin is normal or whether he has had some sort of hepatitis. Either way again no emergent surgery necessary. I feel given his neutropenia he definitely needs to follow up with oncologist and should he end up needing a surgery which he does not at this point, he may be best served at tertiary center given his complex history and multiple medical problems. Either way he does not need emergent surgery now as he is not a candidate for surgery here at the moment. I he likely might be best served at tertiary referral should he need surgery at some point given his complex history unless Dr. Hartman feels otherwise. Again, I am seeing this patient for Dr. Hartman at this time. No emergent surgery necessary. He is moving his bowels. He has not been treated with NG tube since he has been in here. He does have neutropenia. He definitely needs oncology follow up. He may need opinion from GI or maybe even tertiary GI regarding his liver function test. His total bilirubin is normal. At this time his other liver enzymes are elevated. Again, the patient is seen for Dr. 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 No emergent surgery now. He is moving his bowels. He does have fluid filled loops of bowel. He has some ascites. He could even have carcinomatosis although difficult to tell. He is supposed to get a PET scan but was here so they had to cancel it. Consider PET scan to see if he has diffuse disease. He will be referred to oncologist if he needs any surgery. He might be better off at a tertiary center. In the mean time they could try to get his old records from his complex surgeries in [place].
--- NOTE | 2018-08-13 08:38 | PCM.NOTE ---
Date and Time: 08/13/18 08 Subjective Assessment: patient reports he has not had any abdominal pain overnight, his bowels have moved since admission. he was seen by surgery and no intervention is planned Objective Exam General Appearance: no apparent distress, alert, thin Skin Exam: normal color, warm, dry Respiratory Exam: normal breath sounds, lungs clear, No respiratory distress Cardiovascular Exam: regular rate/rhythm, normal heart sounds Gastrointestinal/Abdomen Exam: soft, No tenderness, No mass Extremity Exam: normal inspection, normal range of motion OBJECTIVE DATA Vital Signs: Vital Signs - 24 hr Temp Pulse Resp BP Pulse Ox 08/13/18 07:30 93 L 08/13/18 07:27 98.6 F 67 18 164/65 95 08/13/18 04:00 97.8 F 59 L 18 168/77 94 L 08/13/18 00:00 98.6 F 64 16 169/71 92 L 08/12/18 21:23 93 L 08/12/18 19:30 98.4 F 56 L 20 167/74 95 08/12/18 18:47 96 08/12/18 16:37 97.8 F 90 20 168/74 96 08/12/18 11:09 98 F 80 20 138/70 95 Pain Assessment - Last Documented Pain Intensity 2 Pain Scale Used 0-10 Pain Scale Intake and Output: Intake & Output 08/10/18 08/11/18 08/12/18 08/13/18 11:59 11:59 11:59 11:59 Intake Total 956 3501 Output Total 500 1150 Balance 456 2351 Weight 85.5 kg 86.6 kg Lab Results: Lab Results-Last 24 Hours 08/13/18 08/13/18 Range/Units 05:15 05:15 WBC 2.9 L (4.0-10.5) K/mm3 RBC 2.67 L (4.1-5.6) M/mm3 Hgb 8.3 L (12.5-18.0) gm/dl Hct 26.8 L (42-50) % MCV 100.4 H (78-100) fl MCH 31.0 (26-32) pg MCHC 31.0 L (32-36) g/dl RDW 18.7 H (11.5-14.0) % Plt Count 189 (150-450) K/mm3 MPV 10.6 H (6-9.5) fl Gran % 65.7 (36.0-66.0) % Eos # (Auto) 0.15 (0-0.5) Absolute Lymphs (auto) 0.48 L (1.0-4.6) Absolute Monos (auto) 0.36 (0.0-1.3) Lymphocytes % 16.3 L (24.0-44.0) % Monocytes % 12.2 H (0.0-12.0) % Eosinophils % 5.1 H (0.00-5.0) % Basophils % 0.7 (0.0-0.4) % Absolute Granulocytes 1.93 (1.4-6.9) Basophils # 0.02 (0-0.4) Sodium 141 (137-145) mmol/L Potassium 4.5 (3.5-5.1) mmol/L Chloride 120 H (98-107) mmol/L Carbon Dioxide 15 L* (22-30) mmol/L Anion Gap 10.8 (5-15) MEQ/L BUN 35 H (9-20) mg/dL Creatinine 2.42 H (0.66-1.25) mg/dL Estimated GFR 28.2 ML/MIN Glucose 85 (74-106) mg/dL Calcium 8.3 L (8.4-10.2) mg/dL Total Bilirubin 0.60 (0.2-1.3) mg/dL AST 55 (17-59) U/L ALT 65 H (0-50) U/L Alkaline Phosphatase 174 H (38-126) U/L Serum Total Protein 5.2 L (6.3-8.2) g/dL Albumin 2.8 L (3.5-5.0) g/dL Slides for Path Review YES Radiology Exams: Radiology Procedures Category Date Time Status ABDOMEN AND PELVIS W/0 CONTRAS [CT] Stat Exams 08/11/18 16:44 Completed Assessment/Plan (1) Metabolic acidosis Current Visit: Yes Status: Acute Assessment & Plan: unchanged, will consult nephrology due to complicated history with stent placement previously in [place] Code(s): E87.2 - ACIDOSIS (2) Acute on chronic renal insufficiency Current Visit: No Status: Acute Onset Date: ~07/29/18 Assessment & Plan: stable currently, will consult nephrology Code(s): N28.9 - DISORDER OF KIDNEY AND URETER, UNSPECIFIED; N18.9 - CHRONIC KIDNEY DISEASE, UNSPECIFIED (3) Partial small bowel obstruction Current Visit: No Status: Acute Onset Date: ~07/29/18 Code(s): K56.600 - PARTIAL INTESTINAL OBSTRUCTION, UNSPECIFIED TO CAUSE (4) History of gastric cancer Current Visit: No Status: Chronic Code(s): Z85.028 - PERSONAL HISTORY OF OTHER MALIGNANT NEOPLASM OF STOMACH
[2018-08-13] MEDS: Imdur 60MG PO SCH ×2 (09:31→22:21)
[2018-08-13] MEDS: Lopressor 25MG Tab PO SCH ×2 (09:31→22:21)
[2018-08-13] MEDS: PROTONIX 40 MG IV IV SCH (15:55)
[2018-08-13] MEDS: Flomax 0.4 MG PO SCH (22:21)
[2018-08-14 05:53] LABS: BASOPHIL % 0.6 % (0.0-0.4); Basophil (Absolute #) 0.02 (0-0.4); Eosinophil % 6.1 % (0.00-5.0); Granulocytes % 66.6 % (36.0-66.0); Hematocrit 27.4 % (42-50); Hemoglobin 8.7 gm/dl (12.5-18.0); Lymphocyte (Absolute #) 0.55 (1.0-4.6); Lymphocytes % 16.7 % (24.0-44.0); Mean Cell Volume 98.9 fl (78-100); Mean Corpuscular Hemoglobin 31.4 pg (26-32); Mean Corpuscular Hgb Concent. 31.8 g/dl (32-36); Mean Platelet Volume 11.4 fl (6-9.5); Monocyte (Absolute #) 0.33 (0.0-1.3); Platelet Count 207 K/mm3 (150-450); Red Blood Count 2.77 M/mm3 (4.1-5.6); Red Cell Distribution Width 18.4 % (11.5-14.0); White Blood Count 3.3 K/mm3 (4.0-10.5)
[2018-08-14 06:18] LABS: ALBUMIN 2.8 g/dL (3.5-5.0); ANION GAP 12.4 MEQ/L (5-15); BILIRUBIN,TOTAL 0.6 mg/dL (0.2-1.3); Calcium 8.6 mg/dL (8.4-10.2); Creatinine 1 2.25 mg/dL (0.66-1.25); Potassium 4.4 mmol/L (3.5-5.1); Total Protein 5.4 g/dL (6.3-8.2)
[2018-08-14 07:45] LABS: Slide Review 1 YES
--- NOTE | 2018-08-14 08:10 | PCM.NOTE ---
Date and Time: 08/14/18 0808 Subjective Assessment: patient is tolerating po, no signficant abdominal pain, bowels are moving. no new problems or concerns. Objective Exam General Appearance: no apparent distress, alert Skin Exam: normal color, warm, dry Respiratory Exam: normal breath sounds, lungs clear, No respiratory distress Cardiovascular Exam: regular rate/rhythm, normal heart sounds Gastrointestinal/Abdomen Exam: soft, normal bowel sounds, No tenderness, No distention, No mass, No guarding Extremity Exam: normal inspection, normal range of motion Back Exam: normal inspection, normal range of motion, No CVA tenderness, No vertebral tenderness OBJECTIVE DATA Vital Signs: Vital Signs - 24 hr Temp Pulse Resp BP Pulse Ox 08/14/18 07:55 94 L 08/14/18 07:45 98.4 F 64 13 162/76 94 L 08/14/18 04:00 98.5 F 62 12 173/80 94 L 08/14/18 00:00 98.8 F 69 16 182/84 95 08/13/18 19:36 98.4 F 62 17 170/77 96 08/13/18 19:06 95 08/13/18 16:00 98.6 F 60 18 181/80 95 08/13/18 12:00 98.6 F 53 L 18 147/65 95 Pain Assessment - Last Documented Pain Intensity 2 Pain Scale Used 0-10 Pain Scale Intake and Output: Intake & Output 08/11/18 08/12/18 08/13/18 08/14/18 11:59 11:59 11:59 11:59 Intake Total 956 3501 1704 Output Total 500 1150 350 Balance 456 2351 1354 Weight 85.5 kg 86.6 kg 85.7 kg Lab Results: Lab Results-Last 24 Hours 08/14/18 08/14/18 Range/Units 05:27 05:27 WBC 3.3 L (4.0-10.5) K/mm3 RBC 2.77 L (4.1-5.6) M/mm3 Hgb 8.7 L (12.5-18.0) gm/dl Hct 27.4 L (42-50) % MCV 98.9 (78-100) fl MCH 31.4 (26-32) pg MCHC 31.8 L (32-36) g/dl RDW 18.4 H (11.5-14.0) % Plt Count 207 (150-450) K/mm3 MPV 11.4 H (6-9.5) fl Gran % 66.6 H (36.0-66.0) % Eos # (Auto) 0.20 (0-0.5) Absolute Lymphs (auto) 0.55 L (1.0-4.6) Absolute Monos (auto) 0.33 (0.0-1.3) Lymphocytes % 16.7 L (24.0-44.0) % Monocytes % 10.0 (0.0-12.0) % Eosinophils % 6.1 H (0.00-5.0) % Basophils % 0.6 (0.0-0.4) % Absolute Granulocytes 2.20 (1.4-6.9) Basophils # 0.02 (0-0.4) Sodium 142 (137-145) mmol/L Potassium 4.4 (3.5-5.1) mmol/L Chloride 119 H (98-107) mmol/L Carbon Dioxide 15 L* (22-30) mmol/L Anion Gap 12.4 (5-15) MEQ/L BUN 31 H (9-20) mg/dL Creatinine 2.25 H (0.66-1.25) mg/dL Estimated GFR 30.6 ML/MIN Glucose 87 (74-106) mg/dL Calcium 8.6 (8.4-10.2) mg/dL Total Bilirubin 0.60 (0.2-1.3) mg/dL AST 31 (17-59) U/L ALT 45 (0-50) U/L Alkaline Phosphatase 167 H (38-126) U/L Serum Total Protein 5.4 L (6.3-8.2) g/dL Albumin 2.8 L (3.5-5.0) g/dL Slides for Path Review YES Assessment/Plan (1) Metabolic acidosis Current Visit: Yes Status: Acute Onset Date: ~08/12/18 Assessment & Plan: bun/cr improving with hydration but CO2 remains the same, awaiting nephrology consult at this time Code(s): E87.2 - ACIDOSIS (2) Acute on chronic renal insufficiency Current Visit: Yes Status: Acute Onset Date: ~08/12/18 Assessment & Plan: bun/cr with slight improvement. baseline on review of records appears to be 1.6- 1.8 range on cr. Code(s): N28.9 - DISORDER OF KIDNEY AND URETER, UNSPECIFIED; N18.9 - CHRONIC KIDNEY DISEASE, UNSPECIFIED (3) Partial small bowel obstruction Current Visit: No Status: Resolved Onset Date: ~07/29/18 Assessment & Plan: improved, tolerating po Code(s): K56.600 - PARTIAL INTESTINAL OBSTRUCTION, UNSPECIFIED TO CAUSE (4) History of gastric cancer Current Visit: No Status: Chronic Code(s): Z85.028 - PERSONAL HISTORY OF OTHER MALIGNANT NEOPLASM OF STOMACH
[2018-08-14] MEDS: Imdur 60MG PO SCH ×2 (09:14→21:51)
[2018-08-14] MEDS: Lopressor 25MG Tab PO SCH ×2 (09:14→21:51)
[2018-08-14] MEDS: NON-FORMULARY ITEM PO SCH ×2 (14:33→21:49)
[2018-08-14] MEDS ORDERED: NORVASC 5 MG PO SCH (15:00)
[2018-08-14] MEDS: PROTONIX 40 MG IV IV SCH (15:58)
[2018-08-14] MEDS: MORPHINE SULFATE 4 MG INJ IV PRN (18:36)
[2018-08-14] MEDS: Flomax 0.4 MG PO SCH (21:50)
[2018-08-14] MEDS: ELIQUIS 2.5 MG TABLET PO SCH (21:50)
[2018-08-15] MEDS: MORPHINE SULFATE 4 MG INJ IV PRN (02:49)
[2018-08-15 06:07] LABS: BASOPHIL % 0.4 % (0.0-0.4); Basophil (Absolute #) 0.02 (0-0.4); Eosinophil % 4.4 % (0.00-5.0); Granulocyte Absolute (ANC) 3.28 (1.4-6.9); Granulocytes % 71.4 % (36.0-66.0); Hematocrit 28.4 % (42-50); Lymphocyte (Absolute #) 0.65 (1.0-4.6); Lymphocytes % 14.2 % (24.0-44.0); Mean Cell Volume 98.3 fl (78-100); Mean Corpuscular Hemoglobin 31.1 pg (26-32); Mean Corpuscular Hgb Concent. 31.7 g/dl (32-36); Mean Platelet Volume 10.5 fl (6-9.5); Monocyte (Absolute #) 0.44 (0.0-1.3); Monocytes % 9.6 % (0.0-12.0); Platelet Count 197 K/mm3 (150-450); Red Blood Count 2.89 M/mm3 (4.1-5.6); Red Cell Distribution Width 18.6 % (11.5-14.0); White Blood Count 4.6 K/mm3 (4.0-10.5)
[2018-08-15 06:28] LABS: ANION GAP 11.5 MEQ/L (5-15); BILIRUBIN,TOTAL 0.5 mg/dL (0.2-1.3); Calcium 8.6 mg/dL (8.4-10.2); Creatinine 1 2.05 mg/dL (0.66-1.25); Potassium 4.4 mmol/L (3.5-5.1); Total Protein 5.7 g/dL (6.3-8.2)
--- NOTE | 2018-08-15 08:42 | PCM.DS ---
Discharge Summary Date of Admission: 08/12/18 09:08 Admitting Physician: BOBBY ALVARADO Consults: Consults on Case 08/11/18 18:47 Consult Surgery ROUTINE 08/13/18 08:30 Consult Nephrology ROUTINE Primary Care Provider: BOBBY ALVARADO Allergies Allergies No Known Drug Allergies Allergy (Verified 08/11/18 16:35) Hospital Summary - Hospital Course Hospital Course: patient was admitted with recurrent abdominal pain, concern for partial sbo. no vomiting, he is tolerating po but having some cramping bouts of abdominal pain. was seen by surgery and no intervention recommended. he has a renal stent and CKD, was seen by Dr Gonzalez and started on sodium bicarb for metabolic acidosis likely from GI losses. his co2 has improved, has appt with Dr Sanchez oncology today, hx of gastric malignancy. patient is very complicated medically with multiple problems but is stable and can have these issues further worked up as an outpatient. - Vitals & Intake/Output Vital Signs: Vital Signs Temperature 97.4 F 08/15/18 07:05 Pulse Rate 67 08/15/18 07:05 Respiratory Rate 18 08/15/18 07:05 Blood Pressure 124/64 08/15/18 07:05 O2 Sat by Pulse Oximetry 95 08/15/18 07:05 Intake & Output: Intake & Output 08/12/18 08/13/18 08/14/18 08/15/18 11:59 11:59 11:59 11:59 Intake Total 956 3501 1704 480 Output Total 500 1150 350 Balance 456 2351 1354 480 Weight 85.5 kg 86.6 kg 85.7 kg 85.5 kg - Lab Result Diagrams: 08/15/18 05:55 08/15/18 05:55 Lab Results-Last 24 Hrs: Lab Results-Last 24 Hours 08/15/18 08/15/18 Range/Units 05:55 05:55 WBC 4.6 (4.0-10.5) K/mm3 RBC 2.89 L (4.1-5.6) M/mm3 Hgb 9.0 L (12.5-18.0) gm/dl Hct 28.4 L (42-50) % MCV 98.3 (78-100) fl MCH 31.1 (26-32) pg MCHC 31.7 L (32-36) g/dl RDW 18.6 H (11.5-14.0) % Plt Count 197 (150-450) K/mm3 MPV 10.5 H (6-9.5) fl Gran % 71.4 H (36.0-66.0) % Eos # (Auto) 0.20 (0-0.5) Absolute Lymphs (auto) 0.65 L (1.0-4.6) Absolute Monos (auto) 0.44 (0.0-1.3) Lymphocytes % 14.2 L (24.0-44.0) % Monocytes % 9.6 (0.0-12.0) % Eosinophils % 4.4 (0.00-5.0) % Basophils % 0.4 (0.0-0.4) % Absolute Granulocytes 3.28 (1.4-6.9) Basophils # 0.02 (0-0.4) Sodium 143 (137-145) mmol/L Potassium 4.4 (3.5-5.1) mmol/L Chloride 119 H (98-107) mmol/L Carbon Dioxide 17 L (22-30) mmol/L Anion Gap 11.5 (5-15) MEQ/L BUN 29 H (9-20) mg/dL Creatinine 2.05 H (0.66-1.25) mg/dL Estimated GFR 34.1 ML/MIN Glucose 98 (74-106) mg/dL Calcium 8.6 (8.4-10.2) mg/dL Magnesium 1.9 (1.6-2.3) mg/dL Total Bilirubin 0.50 (0.2-1.3) mg/dL AST 23 (17-59) U/L ALT 35 (0-50) U/L Alkaline Phosphatase 169 H (38-126) U/L Serum Total Protein 5.7 L (6.3-8.2) g/dL Albumin 3.0 L (3.5-5.0) g/dL Micro Results-Entire Visit: Microbiology 08/11/18 18:53 Urine Culture - Final Clean Catch Midstream NO GROWTH - Procedures and Test Procedures and Tests throughout Hospitalization: Therapy Orders & Screens 08/11/18 18:47 Respiratory Therapy Consult ROUTINE Comment: Reason For Exam: Discharge Exam General Appearance: no apparent distress Neurologic Exam: alert, oriented x 3, cooperative Skin Exam: normal color, warm, dry Respiratory Exam: normal breath sounds, lungs clear, No respiratory distress Cardiovascular Exam: regular rate/rhythm, normal heart sounds Gastrointestinal/Abdomen Exam: soft, No tenderness, No mass Extremity Exam: normal inspection, normal range of motion Final Diagnosis/Problem List - Final Discharge Diagnosis/Problem (1) Metabolic acidosis Current Visit: Yes Status: Acute Onset Date: ~08/12/18 Assessment & Plan: improved, will follow (2) Acute on chronic renal insufficiency Current Visit: Yes Status: Acute Onset Date: ~08/12/18 Assessment & Plan: improved with gentle hydration during his stay, appears to be near his baseline (3) Partial small bowel obstruction Current Visit: No Status: Resolved Onset Date: ~07/29/18 Assessment & Plan: tolerating po, treated conservatively at this time. (4) History of gastric cancer Current Visit: No Status: Chronic - Discharge Disposition: Home, Self-Care Condition: Fair Prescriptions: New Sodium Bicarbonate 2 tab PO TID #42 tablet Continue Tamsulosin HCl 0.4 mg PO HS Metoprolol Tartrate 25 mg PO BID Finasteride 5 mg PO DAILY Atorvastatin Calcium 10 mg PO HS Amlodipine Besylate 2.5 mg PO DAILY PANTOPRAZOLE 40 mg Tablet [Protonix 40MG Tablet] 40 mg PO DAILY Nitroglycerin 0.3 mg SL Q5MIN PRN MR X 3 PRN PRN Reason: Pain Aspirin 81 mg PO DAILY Isosorbide Mononitrate [Isosorbide Mononitrate ER] 60 mg PO BID Apixaban [Eliquis] 5 mg PO BID #14 tablet Follow up with: RONAK PARSONS MD [CONSULTING PHYSICIAN] - 09/08/18 2:40 pm BOBBY ALVARADO MD [Primary Care Provider] - 08/21/18 10:00 am BLANKA SANCHEZ MD [NON-STAFF PHY W/O PRIVILEGES] - 08/15/18 1:45 pm
[2018-08-15] MEDS: NON-FORMULARY ITEM PO SCH (09:07)
[2018-08-15] MEDS: ELIQUIS 2.5 MG TABLET PO SCH (09:08)
[2018-08-15] MEDS: Lopressor 25MG Tab PO SCH (09:08)
[2018-08-15] MEDS: Imdur 60MG PO SCH (09:08)
[2018-08-15] MEDS ORDERED: ECOTRIN 81 MG PO SCH (10:00)
[2018-08-15] MEDS ORDERED: NORVASC 5 MG PO SCH (10:00)
[2018-08-15 11:40] VITALS: BP 169/52; PULSE 52; O2SAT 96
== END 2018-08-15 12:15 | disposition home or self-care (01) | DRG 641 ==
LOC: ED 16:10 → MED SURG 18:33 → OBSVTOIN 08-12 09:08 → MED SURG 08-14 15:00
PROVIDERS: ADMIT Family Medicine; ATTEND Family Medicine
DX: E87.2 Acidosis (principal); R10.9 Unspecified abdominal pain; K56.600 Partial intestinal obstruction, unspecified as to cause; N28.9 Disorder of kidney and ureter, unspecified; J44.9 Chronic obstructive pulmonary disease, unspecified; I12.9 Hypertensive chronic kidney disease with stage 1 through stage 4 chronic kidney disease, or unspecified chronic kidney disease; Z79.01 Long term (current) use of anticoagulants; N18.9 Chronic kidney disease, unspecified; K21.9 Gastro-esophageal reflux disease without esophagitis; E78.00 Pure hypercholesterolemia, unspecified; I25.2 Old myocardial infarction; Z79.899 Other long term (current) drug therapy; Z85.028 Personal history of other malignant neoplasm of stomach
CPT/HCPCS: 36415; 74176; 80053; 81001; 82150; 82272; 83690; 83735; 85025; 87086; 93268; 94762; 96374; 96375; 99285; G0378; J1642; J2270; J2405; A9270-GY

== ENCOUNTER 2018-10-02 07:49 | Inpatient (IN) | payer MEDICARE ==
[2018-10-02] MEDS ORDERED: Lactated Ringers 1,000 ML IV ONE ×3 (07:57→11:33)
[2018-10-02] MEDS ORDERED: Lactated Ringers 1,000 ML IV SCH (08:00)
--- NOTE | 2018-10-02 08:40 | XRAY ---
Indication: Preop exam. Cough. Comparison: None Portable chest hyperinflated and clear. Heart and mediastinal structures within normal limits with right sided Port-A-Cath. Bony thorax intact with moderate degenerative changes. Impression: Nonacute hyperinflated chest with chronic features.
[2018-10-02] MEDS ORDERED: MEFOXIN 2 GM PREMIX** 2 GM/50 ML ML IV SCH (09:00)
[2018-10-02 09:58] LABS: ABO TYPING A; Antibody Screen NEGATIVE (NEGATIVE); RH TYPING POSITIVE
[2018-10-02 10:16] LABS: Appearance SLIGHTLY CLOUDY (CLEAR); Bacteria MODERATE /HPF (NEGATIVE); Bilirubin NEGATIVE (NEGATIVE); Blood LARGE Ery/ul (0-5); Glucose NEGATIVE (NEGATIVE); Ketones NEGATIVE (NEGATIVE); Leukocyte Esterase SMALL (NEGATIVE); Mucus SLIGHT /HPF (NEGATIVE); Nitrite NEGATIVE (NEGATIVE); Protein,Urine Dip 30 (Negative); Specific Gravity 1.013 (1.005-1.025); Urobilinogen NEGATIVE mg/dL (0-1)
[2018-10-02] MEDS ORDERED: DILAUDID 2 MG INJECTION ONE (11:14)
[2018-10-02] MEDS ORDERED: SUBLIMAZE 100 MCG/2 ML ONE (11:20)
[2018-10-02] MEDS ORDERED: MORPHINE SULFATE 10 MG/ML ONE (11:29)
[2018-10-02] MEDS: Morphine PCA 1 MG/ML 30 ML IV PRN ×2 (12:14→15:48)
[2018-10-02] MEDS ORDERED: Morphine PCA 1 MG/ML 30 ML IV ONE (12:14)
[2018-10-02] MEDS: D5W/0.45NS W/ 20mEq KCl 1000 ML 1,000 ML IV SCH ×2 (12:14→23:13)
[2018-10-02] MEDS ORDERED: Sodium Chloride 0.9% 10 ML FLUSH Syringe IV PRN (12:45)
[2018-10-02] MEDS ORDERED: NITROGLYCERIN 0.3 MG SL PRN (12:48)
[2018-10-02] MEDS ORDERED: Nitrostat 0.4 MG Tablet SL PRN (13:21)
[2018-10-02] MEDS ORDERED: TYLENOL 325 MG PO PRN (13:43)
[2018-10-02] MEDS: Zofran 4 MG/2 ML VIAL IJ PRN (13:44)
[2018-10-02] MEDS ORDERED: FEVERALL 650 MG RC PRN (13:44)
[2018-10-02] MEDS: MEFOXIN 1 Gm/ D5W 50 Ml** 1 G/50 ML ML IV SCH ×2 (13:46→21:23)
[2018-10-02] MEDS: DILAUDID 1 MG/1ML PCA IV PRN ×2 (14:17→20:00)
[2018-10-02] MEDS: LOPRESSOR 5 MG/5 ML INJECTION IV SCH (14:18)
[2018-10-02] MEDS: PROTONIX 40 MG IV IV SCH (14:24)
[2018-10-02] MEDS ORDERED: Quelicin Fliptop 200 MG/10 ML IJ ONE (14:31)
[2018-10-02] MEDS ORDERED: Zemuron 100 MG/10 ML IJ ONE (14:31)
[2018-10-02] MEDS ORDERED: PHENYLEPHRINE HCL IJ ONE (14:31)
[2018-10-02] MEDS ORDERED: DIPRIVAN 200 MG/20 ML IV ONE (14:31)
[2018-10-02] MEDS ORDERED: BRIDION 200MG/2ML IV ONE (14:31)
[2018-10-02] MEDS ORDERED: MARCAINE 0.5%-EPI 1:200,000 VL IJ ONE (14:31)
[2018-10-02] MEDS ORDERED: SODIUM BICARBONATE PO SCH (15:00)
[2018-10-02] MEDS ORDERED: SUBLIMAZE 250 MCG/5 ML IV ONE (16:01)
[2018-10-02] MEDS ORDERED: Versed 2 MG/2 ML Injection IV ONE (16:01)
[2018-10-02] MEDS ORDERED: Zocor 10MG PO SCH (22:00)
[2018-10-02] MEDS ORDERED: NON-FORMULARY ITEM (Atorvastatin Calcium [Atorvastatin Calcium] 10 MG) PO SCH (22:00)
[2018-10-02] MEDS ORDERED: Flomax 0.4 MG PO SCH (22:00)
[2018-10-02] MEDS ORDERED: Protonix 40MG Tablet PO SCH (22:00)
[2018-10-02] MEDS ORDERED: Lopressor 25MG Tab PO SCH (22:00)
[2018-10-03] MEDS: LOPRESSOR 5 MG/5 ML INJECTION IV SCH ×2 (02:12→15:02)
[2018-10-03 05:25] LABS: Hematocrit 32.7 % (42-50); Hemoglobin 10.4 gm/dl (12.5-18.0); Mean Cell Volume 99.7 fl (78-100); Mean Corpuscular Hemoglobin 31.7 pg (26-32); Mean Corpuscular Hgb Concent. 31.8 g/dl (32-36); Mean Platelet Volume 10.5 fl (6-9.5); Platelet Count 334 K/mm3 (150-450); Red Blood Count 3.28 M/mm3 (4.1-5.6); Red Cell Distribution Width 17.8 % (11.5-14.0); White Blood Count 10.8 K/mm3 (4.0-10.5)
[2018-10-03] MEDS: MEFOXIN 1 Gm/ D5W 50 Ml** 1 G/50 ML ML IV SCH (05:47)
[2018-10-03 06:28] LABS: ANION GAP 12.1 MEQ/L (5-15); Calcium 8.1 mg/dL (8.4-10.2); Creatinine 1 2.96 mg/dL (0.66-1.25)
[2018-10-03] MEDS: Dextrose 5% -0.45 NaCl 1000 ML 1,000 ML IV SCH ×2 (06:48→15:52)
--- NOTE | 2018-10-03 08:01 | PCM.HP ---
History of Present Illness - Chief Complaint Chief Complaint: status post Ileocolostomy History of Present Illness: is a 72 year old male with chronic abdominal issues who had laparotomy yesterday, has a history of gastric cancer, had ileocolostomy placed. 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 other than postoperative pain he has no other complaints at present. - Review of Systems Constitutional: No Fever, No Chills Respiratory: No Cough, No Short Of Breath Cardiac: No Chest Pain, No Edema, No Syncope Abdominal/Gastrointestinal: Abdominal Pain Genitourinary Symptoms: No Symptoms Skin: No Rash All Other Systems: Reviewed and Negative Medications & Allergies Home Medications: Home Medication List Atorvastatin Calcium 10 mg PO HS 07/29/18 [History Confirmed 10/02/18] Finasteride 5 mg PO DAILY 07/29/18 [History Confirmed 10/02/18] Metoprolol Tartrate 12.5 mg PO BID 07/29/18 [History Confirmed 10/02/18] Nitroglycerin 0.3 mg SL Q5MIN PRN MR X 3 PRN 07/29/18 [History Confirmed ] PANTOPRAZOLE 40 mg Tablet [Protonix 40MG Tablet] 40 mg PO BID 07/29/18 [ History Confirmed 10/02/18] Tamsulosin HCl 0.4 mg PO HS 07/29/18 [History Confirmed 10/02/18] Sodium Bicarbonate 2 tab PO TID #42 tablet 08/15/18 [Rx Confirmed 10/02/18] Allergies/Adverse Reactions: Allergies Allergy/AdvReac Type Severity Reaction Status Date / Time No Known Drug Allergies Allergy Verified 10/02/18 08:12 - Past Medical History Past Medical History: Yes Neurological History: No Pertinent History ENT History: Macular Degeneration Cardiac History: Coronary Artery Disease, High Cholesterol, Hypertension, Myocardial Infarction (HI) Respiratory History: COPD Endocrine Medical History: No Pertinent History, Other Musculoskelatal History: Other GI Medical History: GERD, Other History: Renal Disease Pyscho-Social History: No Pertinent History Male Reproductive Disorders: No Pertinent History Comment: stomach cancer. bowel blockage. carpel tunnel. part of esophagus removed - Past Surgical History Past Surgical History: Yes Neuro Surgical History: No Pertinent History Cardiac History: Cardiac Catheterization, Cardiac Stent Respiratory Surgery: No Pertinent History GI Surgical History: Appendectomy, Hernia Repair Genitourinary Surgical Hx: Other Musculskeletal Surgical Hx: No Pertinent History Male Surgical History: No Pertinent History Other Surgical History: power port, lumpectomy forehead. 80% of stomach removed October 2017. part of esophagus removed october 2017. colonoscopy, ureter stents devang. filter for blood clot Carpal tunnel devang, 1985,1986. left and right ureteral stents. - Social History Smoking Status: Former smoker Exposure to second hand smoke: No Alcohol: None Drug Use: none - Physical Exam Vital Signs: Vital Signs - 24 hr Temp Pulse Resp BP Pulse Ox 10/03/18 07:33 96 H 17 10/03/18 05:08 88 17 98 10/03/18 04:00 99.0 F 89 15 111/65 98 10/03/18 03:55 90 14 10/03/18 00:00 98 10/02/18 23:30 96 H 31 H 10/02/18 23:29 98.1 F 96 H 31 H 114/65 96 10/02/18 20:00 99.4 F 98 H 12 99/75 98 10/02/18 17:51 97 10/02/18 17:06 100 H 14 99 10/02/18 16:08 99 F 108 H 18 109/66 98 10/02/18 16:01 109 H 12 110/65 98 10/02/18 16:00 102 H 12 10/02/18 15:48 91 L 10/02/18 14:17 91 L 10/02/18 13:52 97.4 F 117 H 20 139/70 96 10/02/18 13:00 118 H 20 158/60 97 10/02/18 12:24 97.8 F 108 H 18 168/79 98 10/02/18 12:14 98 10/02/18 09:01 97.3 F 46 L 16 111/54 99 10/02/18 08:50 97.3 F 46 L 16 111/54 99 10/02/18 08:24 97.3 F 46 L 16 111/54 99 Oxygen-Last 24 hours O2 Percentage 2 Liters = 28% O2 Percentage 2 Liters = 28% O2 Percentage 2 Liters = 28% O2 Percentage 2 Liters = 28% O2 Percentage 2 Liters = 28% O2 Percentage 2 Liters = 28% O2 Percentage 2 Liters = 28% O2 Percentage 2 Liters = 28% General Appearance: mild distress, alert Neurologic Exam: alert, oriented x 3, cooperative Respiratory Exam: normal breath sounds Cardiovascular Exam: regular rate/rhythm, normal heart sounds, normal peripheral pulses Gastrointestinal/Abdomen Exam: other (dressing to midline clean, dry and intact. no appreciable bowel sounds present) Extremity Exam: normal inspection, normal range of motion, pelvis stable Skin Exam: normal color, warm, dry, No rash Results - Labs Lab/Micro Results: Lab Results-Last 24 Hours 10/02/18 10/02/18 10/03/18 Range/Units 08:20 09:56 05:21 WBC 10.8 H (4.0-10.5) K/mm3 RBC 3.28 L (4.1-5.6) M/mm3 Hgb 10.4 L (12.5-18.0) gm/dl Hct 32.7 L (42-50) % MCV 99.7 (78-100) fl MCH 31.7 (26-32) pg MCHC 31.8 L (32-36) g/dl RDW 17.8 H (11.5-14.0) % Plt Count 334 (150-450) K/mm3 MPV 10.5 H (6-9.5) fl Sodium (137-145) mmol/L Potassium (3.5-5.1) mmol/L Chloride (98-107) mmol/L Carbon Dioxide (22-30) mmol/L Anion Gap (5-15) MEQ/L BUN (9-20) mg/dL Creatinine (0.66-1.25) mg/dL Estimated GFR ML/MIN Glucose (74-106) mg/dL Calcium (8.4-10.2) mg/dL Urine Color YELLOW (YELLOW) Urine Appearance SLIGHTLY CLOUDY (CLEAR) Urine pH 5.0 (5-6) Ur Specific [place] 1.013 (1.005-1.025) Urine Protein 30 (Negative) Urine Ketones NEGATIVE (NEGATIVE) Urine Blood LARGE (0-5) Alex/ul Urine Nitrite NEGATIVE (NEGATIVE) Urine Bilirubin NEGATIVE (NEGATIVE) Urine Urobilinogen NEGATIVE (0-1) mg/dL Ur Leukocyte Esterase SMALL (NEGATIVE) Urine WBC (Auto) 11-15 (0-5) /HPF Urine RBC (Auto) 16-25 (0-2) /HPF U Hyaline Cast (Auto) 3-5 (0-2) /LPF U Epithel Cells (Auto) NONE (FEW) /HPF Urine Bacteria (Auto) MODERATE (NEGATIVE) /HPF Urine Mucus (Auto) SLIGHT (NEGATIVE) /HPF Urine Glucose NEGATIVE (NEGATIVE) mg/dL ABO Group A Rh Factor POSITIVE Antibody Screen NEGATIVE (NEGATIVE) 10/03/18 Range/Units 05:21 WBC (4.0-10.5) K/mm3 RBC (4.1-5.6) M/mm3 Hgb (12.5-18.0) gm/dl Hct (42-50) % MCV (78-100) fl MCH (26-32) pg MCHC (32-36) g/dl RDW (11.5-14.0) % Plt Count (150-450) K/mm3 MPV (6-9.5) fl Sodium 138 (137-145) mmol/L Potassium 6.0 H (3.5-5.1) mmol/L Chloride 111 H (98-107) mmol/L Carbon Dioxide 20 L (22-30) mmol/L Anion Gap 12.1 (5-15) MEQ/L BUN 52 H (9-20) mg/dL Creatinine 2.96 H (0.66-1.25) mg/dL Estimated GFR 22.3 ML/MIN Glucose 120 H (74-106) mg/dL Calcium 8.1 L (8.4-10.2) mg/dL Urine Color (YELLOW) Urine Appearance (CLEAR) Urine pH (5-6) Ur Specific [place] (1.005-1.025) Urine Protein (Negative) Urine Ketones (NEGATIVE) Urine Blood (0-5) Alex/ul Urine Nitrite (NEGATIVE) Urine Bilirubin (NEGATIVE) Urine Urobilinogen (0-1) mg/dL Ur Leukocyte Esterase (NEGATIVE) Urine WBC (Auto) (0-5) /HPF Urine RBC (Auto) (0-2) /HPF U Hyaline Cast (Auto) (0-2) /LPF U Epithel Cells (Auto) (FEW) /HPF Urine Bacteria (Auto) (NEGATIVE) /HPF Urine Mucus (Auto) (NEGATIVE) /HPF Urine Glucose (NEGATIVE) mg/dL ABO Group Rh Factor Antibody Screen (NEGATIVE) - Radiology Impressions Radiology Exams & Impressions: Radiology Procedures Category Date Time Status CHEST 1 VIEW (PORTABLE) Stat Exams 10/02/18 08:01 Completed - Other Procedures and Tests Respiratory Therapy 10/02/18 12:40 Oxygen Nasal Cannula 2 lpm 10/02/18 12:45 Incentive Spirometry TID 10/02/18 17:06 Respiratory Therapy Assessment DAILY Assessment/Plan (1) Hyperkalemia Current Visit: Yes Status: Acute Assessment & Plan: changed fluids to remove potassium, will check EKG to make sure no changes. will repeat K this afternoon Code(s): E87.5 - HYPERKALEMIA (2) Acute on chronic renal insufficiency Current Visit: No Status: Acute Onset Date: ~08/12/18 Assessment & Plan: slight increase in bun/cr not unexpected following surgical procedure, will monitor labs and urine output Code(s): N28.9 - DISORDER OF KIDNEY AND URETER, UNSPECIFIED; N18.9 - CHRONIC KIDNEY DISEASE, UNSPECIFIED (3) Small bowel obstruction Current Visit: No Status: Acute Onset Date: ~08/12/18 Assessment & Plan: s/p internal ileocolostomy Code(s): K56.609 - UNSP INTESTNL OBST, UNSP TO PARTIAL VERSUS COMPLETE OBST (4) History of gastric cancer Current Visit: No Status: Chronic Code(s): Z85.028 - PERSONAL HISTORY OF OTHER MALIGNANT NEOPLASM OF STOMACH
--- NOTE | 2018-10-03 08:10 | OP ---
SURGERY DATE/TIME: 10/02/2018 0945 PREOPERATIVE DIAGNOSIS: Small bowel obstruction. POSTOPERATIVE DIAGNOSIS: Small bowel obstruction secondary to cancer. PROCEDURES: 1) Exploratory laparotomy with evacuation of ascites about 2 liters. Ascites sent to pathology. 2) Ileocolotomy bypass. 3) Enterolysis. SURGEON: Uvaldo Hartman M.D. ANESTHESIA: General. COMPLICATIONS: None. CONDITION: Stable. INDICATION: The patient had a gastric cancer resected in the [facility] [place] about a year ago. He apparently had a little bit of chemotherapy but had a reaction to 5FU and it was stopped. He did have radiation therapy. He has clinical findings of 30 pound weight loss a small bowel follow through showing near complete small bowel obstruction. DESCRIPTION OF PROCEDURE: He was taken to surgery. General anesthetic. Routine prep and drape. Previous midline incision opened. The left piece of mesh in the mid portion of the incision which was transverse. There were scant adhesions against the anterior abdominal wall. There were at least five major adhesions, one of these being grossly obstructing which was taken with electrocautery. It was very thick. Despite this, this was not the true cause of the obstruction. The true cause of the obstruction was in the right upper quadrant. It was in the previous field. The cecum was pulled up. The ileum was pulled up and there was tumor matting down a loop of small bowel here against the retroperitoneum. The retroperitoneum, lesser sac, pancreatic area all was very dense, very firm all suggestive of being involved with recurrent disease. I believe the falciform had an area very strongly suggestive of recurrent disease. Despite this some of this was in a readily accessible biopsy position and it was felt prudent not to mobilize this area as it would cause nothing but trouble. A bypass was performed ileocolic with TA-stapling device, contoured stapling device, contoured end was reinforced with 3-0 PDS. It laid nicely. Bowels laid back in organized fashion. No omentum. Anterior abdominal wall closed with three sutures #0 looped PDS. Subcutaneous tissue irrigated. Skin closed with dipti. Wick supplied. The patient tolerated the procedure satisfactorily. Findings discussed with the in the waiting room. IMPRESSION: Small bowel obstruction related to recurrent cancer. Recurrent cancer itself was not in a position that could be biopsied but clinically was absolutely a recurrent cancer in nature. PLAN: He will require at least three weeks on this anastomosis prior to any consideration of chemotherapy.
[2018-10-03] MEDS: Zofran 4 MG/2 ML VIAL IJ PRN (08:41)
[2018-10-03] MEDS ORDERED: Proscar 5 MG PO SCH (10:00)
[2018-10-03] MEDS ORDERED: ENOXAPARIN SODIUM SQ SCH (10:00)
[2018-10-03] MEDS: ENOXAPARIN SODIUM SQ SCH (10:37)
[2018-10-03] MEDS: PROTONIX 40 MG IV IV SCH (13:07)
[2018-10-03] MEDS: DILAUDID 1 MG/1ML PCA IV PRN (16:01)
[2018-10-04] MEDS: Dextrose 5% -0.45 NaCl 1000 ML 1,000 ML IV SCH ×3 (01:07→21:02)
[2018-10-04] MEDS: LOPRESSOR 5 MG/5 ML INJECTION IV SCH ×2 (02:25→15:27)
[2018-10-04 06:39] LABS: BASOPHIL % 0.1 % (0.0-0.4); Basophil (Absolute #) 0.01 (0-0.4); Eosinophil % 0.2 % (0.00-5.0); Eosinophil (Absolute #) 0.02 (0-0.5); Granulocyte Absolute (ANC) 9.98 (1.4-6.9); Granulocytes % 90.8 % (36.0-66.0); Hematocrit 27.7 % (42-50); Hemoglobin 8.8 gm/dl (12.5-18.0); Lymphocyte (Absolute #) 0.41 (1.0-4.6); Lymphocytes % 3.7 % (24.0-44.0); Mean Cell Volume 99.6 fl (78-100); Mean Corpuscular Hgb Concent. 31.8 g/dl (32-36); Mean Platelet Volume 10.9 fl (6-9.5); Monocyte (Absolute #) 0.57 (0.0-1.3); Monocytes % 5.2 % (0.0-12.0); Platelet Count 261 K/mm3 (150-450); Red Blood Count 2.78 M/mm3 (4.1-5.6); Red Cell Distribution Width 17.8 % (11.5-14.0)
[2018-10-04 06:42] LABS: Mean Corpuscular Hemoglobin 31.6 pg (26-32)
[2018-10-04 06:59] LABS: ALBUMIN 2.3 g/dL (3.5-5.0); ANION GAP 12.7 MEQ/L (5-15); BILIRUBIN,TOTAL 0.9 mg/dL (0.2-1.3); Calcium 7.9 mg/dL (8.4-10.2); Creatinine 1 3.15 mg/dL (0.66-1.25); MAGNESIUM 2.1 mg/dL (1.6-2.3); Potassium 5.7 mmol/L (3.5-5.1); Total Protein 4.8 g/dL (6.3-8.2)
[2018-10-04 07:57] LABS: Slide Review 1 YES
[2018-10-04] MEDS: ENOXAPARIN SODIUM SQ SCH (11:10)
--- NOTE | 2018-10-04 13:10 | PCM.NOTE ---
Date and Time: 10/04/18 1307 Subjective Assessment: He reports the auto tire recapper pump helps with his pain for about 15 minutes when he remembers to push the button and then the pain will slowly come back. He reports he feels like he is doing better than yesterday. He has no other concerns at this time. - Review of Systems Constitutional: Weakness Eyes: No Symptoms Ears, Nose, & Throat: No Symptoms Respiratory: No Symptoms Cardiac: No Symptoms Abdominal/Gastrointestinal: Abdominal Pain Genitourinary Symptoms: No Symptoms Musculoskeletal: No Symptoms Skin: No Symptoms Objective Exam General Appearance: no apparent distress, alert, other (NG tube in place) Neurologic Exam: alert, cooperative, normal mood/affect Skin Exam: normal color, warm, dry, No rash Respiratory Exam: normal breath sounds, lungs clear Cardiovascular Exam: regular rate/rhythm, normal heart sounds, No murmur, No friction rub, No gallop Gastrointestinal/Abdomen Exam: soft, other (abdominal binder in place), No normal bowel sounds Extremity Exam: other (no c/c/e) OBJECTIVE DATA Vital Signs: Vital Signs - 24 hr Temp Pulse Resp BP Pulse Ox 10/04/18 11:12 98.2 F 87 20 134/80 96 10/04/18 08:01 95 10/04/18 08:00 20 10/04/18 07:26 99.1 F 99 H 20 128/60 95 10/04/18 04:01 95 10/04/18 04:00 98.8 F 109 H 18 125/62 95 10/04/18 03:21 98.8 F 109 H 18 125/62 95 10/04/18 00:26 99.3 F 104 H 18 120/60 94 L 10/04/18 00:01 94 L 10/03/18 20:49 108 H 18 94 L 10/03/18 20:01 95 10/03/18 20:00 99.0 F 114 H 18 141/68 95 10/03/18 16:01 96 10/03/18 16:00 99.1 F 109 H 20 121/67 96 Oxygen-Last 24 hours O2 Percentage 3 Liters = 32% O2 Percentage 2 Liters = 28% O2 Percentage 2 Liters = 28% O2 Percentage 2 Liters = 28% O2 Percentage 2 Liters = 28% O2 Percentage 2 Liters = 28% O2 Percentage 3 Liters = 32% Pain Assessment - Last Documented Pain Intensity 4 Pain Scale Used 0-10 Pain Scale Intake and Output: Intake & Output 10/02/18 10/03/18 10/04/18 10/05/18 06:59 06:59 06:59 06:59 Intake Total 1621 2280 0 Output Total 600 725 Balance 1021 1555 0 Weight 76.7 kg Lab Results: Lab Results-Last 24 Hours 10/04/18 10/04/18 Range/Units 06:15 06:15 WBC 11.0 H (4.0-10.5) K/mm3 RBC 2.78 L (4.1-5.6) M/mm3 Hgb 8.8 L (12.5-18.0) gm/dl Hct 27.7 L (42-50) % MCV 99.6 (78-100) fl MCH 31.6 (26-32) pg MCHC 31.8 L (32-36) g/dl RDW 17.8 H (11.5-14.0) % Plt Count 261 (150-450) K/mm3 MPV 10.9 H (6-9.5) fl Gran % 90.8 H (36.0-66.0) % Eos # (Auto) 0.02 (0-0.5) Absolute Lymphs (auto) 0.41 L (1.0-4.6) Absolute Monos (auto) 0.57 (0.0-1.3) Lymphocytes % 3.7 L (24.0-44.0) % Monocytes % 5.2 (0.0-12.0) % Eosinophils % 0.2 (0.00-5.0) % Basophils % 0.1 (0.0-0.4) % Absolute Granulocytes 9.98 H (1.4-6.9) Basophils # 0.01 (0-0.4) Sodium 136 L (137-145) mmol/L Potassium 5.7 H (3.5-5.1) mmol/L Chloride 112 H (98-107) mmol/L Carbon Dioxide 17 L (22-30) mmol/L Anion Gap 12.7 (5-15) MEQ/L BUN 57 H (9-20) mg/dL Creatinine 3.15 H (0.66-1.25) mg/dL Estimated GFR 20.8 ML/MIN Glucose 112 H (74-106) mg/dL Calcium 7.9 L (8.4-10.2) mg/dL Magnesium 2.1 (1.6-2.3) mg/dL Total Bilirubin 0.90 (0.2-1.3) mg/dL AST 130 H (17-59) U/L ALT 437 H (0-50) U/L Alkaline Phosphatase 233 H (38-126) U/L Serum Total Protein 4.8 L (6.3-8.2) g/dL Albumin 2.3 L (3.5-5.0) g/dL Slides for Path Review YES Multi-Disciplinary Progress Notes: Multi-Disciplinary Progress Notes 10/03/18 19:32 Case Management Note by Charleen Brothers S/W PT ABOUT CONSIDERING [facility] AT D/C AND GIVEN A LIST OF LOCAL SERVICE PROVIDERS. PT STATED THAT HE WOULD THINK ABOUT IT. PT STATED THAT HE DIDN'T THINK THEIR APARTMENT HAD ROOM FOR A HOSPITAL BED. WILL CONT. TO FOLLOW. Initialized on 10/03/18 19:32 - END OF NOTE Assessment/Plan (1) Hyperkalemia Current Visit: Yes Status: Acute Assessment & Plan: Improved from yesterday. Recheck tomorrow. Code(s): E87.5 - HYPERKALEMIA (2) Acute on chronic renal insufficiency Current Visit: No Status: Acute Onset Date: ~08/12/18 Assessment & Plan: Currently stable, continue to monitor. Code(s): N28.9 - DISORDER OF KIDNEY AND URETER, UNSPECIFIED; N18.9 - CHRONIC KIDNEY DISEASE, UNSPECIFIED (3) Small bowel obstruction Current Visit: No Status: Acute Onset Date: ~08/12/18 Assessment & Plan: s/p ileoclostomy. Management per surgeons. Code(s): K56.609 - UNSP INTESTNL OBST, UNSP TO PARTIAL VERSUS COMPLETE OBST (4) History of gastric cancer Current Visit: No Status: Chronic Code(s): Z85.028 - PERSONAL HISTORY OF OTHER MALIGNANT NEOPLASM OF STOMACH
[2018-10-04] MEDS: PROTONIX 40 MG IV IV SCH (15:23)
[2018-10-05] MEDS: LOPRESSOR 5 MG/5 ML INJECTION IV SCH ×3 (01:08→22:36)
[2018-10-05] MEDS ORDERED: Cardizem 30 MG PO SCH (04:45)
[2018-10-05] MEDS ORDERED: CARDIZEM DRIP 100 MG/100 ML D5W 100 ML IV PRN (04:49)
[2018-10-05] MEDS ORDERED: Cardizem IV 50 MG/10 ML IV ONE (04:50)
[2018-10-05] MEDS ORDERED: Sodium Chloride 0.9% 500 ML 500 ML IV ONE (05:00)
[2018-10-05] MEDS ORDERED: ENOXAPARIN SODIUM SQ ONE (05:32)
[2018-10-05 05:51] LABS: BASOPHIL % 0.2 % (0.0-0.4); Basophil (Absolute #) 0.02 (0-0.4); Eosinophil % 0.4 % (0.00-5.0); Eosinophil (Absolute #) 0.05 (0-0.5); Granulocyte Absolute (ANC) 10.43 (1.4-6.9); Hemoglobin 8.6 gm/dl (12.5-18.0); Lymphocyte (Absolute #) 0.53 (1.0-4.6); Lymphocytes % 4.6 % (24.0-44.0); Mean Cell Volume 99.3 fl (78-100); Mean Corpuscular Hemoglobin 31.6 pg (26-32); Mean Corpuscular Hgb Concent. 31.9 g/dl (32-36); Mean Platelet Volume 11.4 fl (6-9.5); Monocyte (Absolute #) 0.56 (0.0-1.3); Monocytes % 4.8 % (0.0-12.0); Platelet Count 285 K/mm3 (150-450); Red Blood Count 2.72 M/mm3 (4.1-5.6); Red Cell Distribution Width 18.1 % (11.5-14.0); White Blood Count 11.6 K/mm3 (4.0-10.5)
[2018-10-05 05:54] LABS: ANION GAP 12.2 MEQ/L (5-15); Calcium 8.3 mg/dL (8.4-10.2); Creatinine 1 2.59 mg/dL (0.66-1.25); Potassium 5.3 mmol/L (3.5-5.1)
[2018-10-05] MEDS ORDERED: NORCO 5/325 MG PO PRN (06:00)
[2018-10-05] MEDS: Dextrose 5% -0.45 NaCl 1000 ML 1,000 ML IV SCH (06:31)
[2018-10-05 08:21] LABS: Slide Review 1 YES
[2018-10-05] MEDS ORDERED: PHARMACY DOSING REQUEST MC ONE (10:26)
[2018-10-05] MEDS: Zosyn 2.25 GM 2.25 GM in Dextrose 5%/Water IV Soln. 100ML PLUS BAG 100 ML IV SCH ×3 (11:28→23:55)
[2018-10-05] MEDS ORDERED: Sodium Chloride 0.9% 500 ML 500 ML IV SCH (11:45)
--- NOTE | 2018-10-05 11:51 | PCM.NOTE ---
Date and Time: 10/05/18 1145 Subjective Assessment: Patient developed a.fib last night that then converted with cardizem drip. He continues to be npo with NG tube in place. He is POD #3 today. His old records show hx of CAD with stent that was placed 2018 in [place] per his . His current linking machine operator is Dr. Soria. His reports he has had no recent stress tests. He reports trouble taking a deep breath and chest pain 2 out of 10 that feels like "something is there" or a "weight on his chest". He was recently at [facility] 2018 and his reports he had a GI bleed from a gastric ulcer and had to have 5 units of PRBC's at [facility]. He also has a history of gastric ulcer in 2017 and this is when his reports his gastric cancer was found. His nurse notes that he seems more confused today. He also has hx of uretral stents and filter for blood clots and has been on anticoagulation before but no hx of a. fib. He has seen Dr. Marcelo at [facility] for acute kidney failure 2018. - Review of Systems Constitutional: Weakness Eyes: No Symptoms Ears, Nose, & Throat: No Symptoms Respiratory: Cough, Short Of Breath Cardiac: Chest Pain Abdominal/Gastrointestinal: Abdominal Pain Genitourinary Symptoms: No Symptoms Musculoskeletal: No Symptoms Skin: No Symptoms Objective Exam General Appearance: other (Patient with frequent cough productive of clear sputum, ng tube in place, oxygen by NC in place; at bedside.) Neurologic Exam: alert, cooperative Skin Exam: normal color, warm, dry, No rash Respiratory Exam: normal breath sounds, lungs clear, No crackles/rales, No rhonchi, No wheezing Cardiovascular Exam: regular rate/rhythm, normal heart sounds, No murmur, No friction rub, No gallop Gastrointestinal/Abdomen Exam: other (hypoactive bowel sounds, bandage in place over incision.) Extremity Exam: other (no c/c/e) OBJECTIVE DATA Vital Signs: Vital Signs - 24 hr Temp Pulse Resp BP BP Pulse Ox 10/05/18 11:38 73 17 116/62 10/05/18 11:02 75 20 122/53 10/05/18 09:35 72 17 108/66 10/05/18 08:00 17 10/05/18 07:54 98.2 F 102 H 17 112/62 91 L 10/05/18 07:53 145 H 23 101/78 10/05/18 06:35 145 H 23 101/78 10/05/18 05:55 110 H 24 114/64 10/05/18 04:02 97.4 F 115 H 16 126/64 92 L 10/05/18 04:01 92 L 10/05/18 00:25 98.6 F 77 18 133/61 96 10/05/18 00:01 96 10/04/18 20:15 95 10/04/18 20:01 96 10/04/18 20:00 99.1 F 95 H 18 117/63 95 10/04/18 19:46 96 10/04/18 16:01 95 10/04/18 15:58 16 10/04/18 15:29 106 H 20 121/66 96 10/04/18 14:22 95 10/04/18 12:00 20 Oxygen-Last 24 hours O2 Percentage 3 Liters = 32% O2 Percentage 2 Liters = 28% O2 Percentage 2 Liters = 28% O2 Percentage 2 Liters = 28% O2 Percentage 2 Liters = 28% Pain Assessment - Last Documented Pain Intensity 0 Pain Scale Used 0-10 Pain Scale Intake and Output: Intake & Output 10/03/18 10/04/18 10/05/18 10/06/18 06:59 06:59 06:59 06:59 Intake Total 1621 2280 2413 Output Total 824 961 0072 425 Balance 1021 1555 963 -425 Weight 76.7 kg Lab Results: Lab Results-Last 24 Hours 10/05/18 10/05/18 Range/Units 05:00 05:00 WBC 11.6 H (4.0-10.5) K/mm3 RBC 2.72 L (4.1-5.6) M/mm3 Hgb 8.6 L (12.5-18.0) gm/dl Hct 27.0 L (42-50) % MCV 99.3 (78-100) fl MCH 31.6 (26-32) pg MCHC 31.9 L (32-36) g/dl RDW 18.1 H (11.5-14.0) % Plt Count 285 (150-450) K/mm3 MPV 11.4 H (6-9.5) fl Gran % 90.0 H (36.0-66.0) % Eos # (Auto) 0.05 (0-0.5) Absolute Lymphs (auto) 0.53 L (1.0-4.6) Absolute Monos (auto) 0.56 (0.0-1.3) Lymphocytes % 4.6 L (24.0-44.0) % Monocytes % 4.8 (0.0-12.0) % Eosinophils % 0.4 (0.00-5.0) % Basophils % 0.2 (0.0-0.4) % Absolute Granulocytes 10.43 H (1.4-6.9) Basophils # 0.02 (0-0.4) Sodium 136 L (137-145) mmol/L Potassium 5.3 H (3.5-5.1) mmol/L Chloride 112 H (98-107) mmol/L Carbon Dioxide 16 L* (22-30) mmol/L Anion Gap 12.2 (5-15) MEQ/L BUN 55 H (9-20) mg/dL Creatinine 2.59 H (0.66-1.25) mg/dL Estimated GFR 26.0 ML/MIN Glucose 117 H (74-106) mg/dL Calcium 8.3 L (8.4-10.2) mg/dL Slides for Path Review YES Radiology Exams: Radiology Procedures Category Date Time Status CHEST 1 VIEW (PORTABLE) Routine Exams 10/05/18 10:25 Ordered Assessment/Plan (1) Paroxysmal atrial fibrillation with rapid ventricular response Current Visit: Yes Status: Acute Assessment & Plan: Patient received one dose of lovenox 80 mg subcutanously for anticoagulation for a. fib. On review of his chart, he has very recent GI bleed. Dr. Soria was contacted and per nurse recommended continuing lovenox 80 mg subcutanously daily but would not be seeing the patient here. I am deferring further anticoagulation orders to the patient's PCP who will be here tomorrow. I think at this point, the risk may outweigh the benefit but he may discuss further with Dr. Maurer. Patient converted to normal sinus rhythm and his nurse is working on titrating the cardizem drip off. Will increase his metoprolol to 5 mg tid. His nurse, Lala, reported she would type up Dr. Soria's recommendations but again, he did not plan to see the patient here in the hospital. Patient was transferred to ICU last night for cardizem drip and closer monitoring. Code(s): I48.0 - PAROXYSMAL ATRIAL FIBRILLATION (2) Metabolic acidosis Current Visit: No Status: Acute Onset Date: ~08/12/18 Assessment & Plan: He was given 500 mL NS bolus today and continued IV fluids. Forming Machine Upkeep Mechanic Helper consulted for further management. Code(s): E87.2 - ACIDOSIS (3) Hyperkalemia Current Visit: Yes Status: Acute Assessment & Plan: Continue to monitor; jewelry sales consulted. Code(s): E87.5 - HYPERKALEMIA (4) Acute on chronic renal insufficiency Current Visit: No Status: Acute Onset Date: ~08/12/18 Assessment & Plan: Continues and jewelry sales consulted. Will start daily weights and accurate ins and outs. Code(s): N28.9 - DISORDER OF KIDNEY AND URETER, UNSPECIFIED; N18.9 - CHRONIC KIDNEY DISEASE, UNSPECIFIED (5) History of gastric cancer Current Visit: No Status: Chronic Assessment & Plan: Overall prognosis is poor given multiple health problems. Code(s): Z85.028 - PERSONAL HISTORY OF OTHER MALIGNANT NEOPLASM OF STOMACH (6) Coronary artery disease Current Visit: No Status: Chronic Qualifiers: Coronary Disease-Associated Artery/Lesion type: [place] artery [place] vs. transplanted heart: [place] heart Associated angina: without angina Qualified Code(s): I25.10 - Atherosclerotic heart disease of [place] coronary artery without angina pectoris Code(s): I25.10 - ATHSCL HEART DISEASE OF [place] CORONARY ARTERY W/O ANG PCTRS (7) Anemia Current Visit: Yes Status: Acute Qualifiers: Iron deficiency anemia type: chronic blood loss Assessment & Plan: Discussed with patient that given his chest pain and history of CAD, I think it would be best to transfuse him with 2 units of PRBC's. Discussed risk and benefits and he is agreeable to transfusion. Code(s): D64.9 - ANEMIA, UNSPECIFIED (8) Chest pain Current Visit: Yes Status: Acute Code(s): R07.9 - CHEST PAIN, UNSPECIFIED (9) Abdominal pain Current Visit: No Status: Acute Onset Date: ~08/12/18 Qualifiers: Abdominal location: generalized Qualified Code(s): R10.84 - Generalized abdominal pain Assessment & Plan: POD #3 from abdominal surgery with Dr. Hartman for gastric cancer. Code(s): R10.9 - UNSPECIFIED ABDOMINAL PAIN (10) Gastric ulcer Current Visit: Yes Status: Acute Assessment & Plan: Continue IV PPI. No active bleeding at this time. Code(s): K25.9 - GASTRIC ULCER, UNSP ACUTE OR CHRONIC, W/O HEMOR OR PERF (11) Poor nutrition Current Visit: Yes Status: Acute Assessment & Plan: POD #3 and NG tube still in place and pt not passing gas. Will start TPN. Discussed with pharmacist. Code(s): E63.9 - NUTRITIONAL DEFICIENCY, UNSPECIFIED
[2018-10-05] MEDS: PROTONIX 40 MG IV IV SCH (13:03)
[2018-10-05] MEDS: INTRALIPID 20% 250 ML 250 ML, TPN Electrolytes 20 ML, Multitrace-4 Conc Vial 1 ML*** 1 ... IV SCH ×6 (13:03)
[2018-10-05 14:52] LABS: ABO TYPING A; Antibody Screen NEGATIVE (NEGATIVE); RH TYPING POSITIVE
[2018-10-05 14:54] LABS: CROSS MATCH (PRBC) COMPATIBLE (COMPATIBLE)
--- NOTE | 2018-10-05 16:09 | XRAY ---
Indication: Cough. Comparison: October 02, 2018. Portable apical lordotic chest underinflated today with new bibasilar infiltrates versus atelectasis. Heart is not enlarged with stable right Port-A-Cath. New NG tube traverses the chest with tip presumed in the stomach. Comment: Preliminary interpretation was made by [facility]. No critical discrepancy.
[2018-10-06 00:01] LABS: Hematocrit 29.6 % (42-50); Hemoglobin 9.8 gm/dl (12.5-18.0)
[2018-10-06] MEDS: Dextrose 5% -0.45 NaCl 1000 ML 1,000 ML IV SCH (02:32)
[2018-10-06] MEDS: Zosyn 2.25 GM 2.25 GM in Dextrose 5%/Water IV Soln. 100ML PLUS BAG 100 ML IV SCH ×3 (05:19→17:01)
[2018-10-06 05:53] LABS: Hematocrit 31.5 % (42-50); Hemoglobin 10.2 gm/dl (12.5-18.0); Mean Cell Volume 96.6 fl (78-100); Mean Corpuscular Hgb Concent. 32.4 g/dl (32-36); Mean Platelet Volume 10.9 fl (6-9.5); Platelet Count 243 K/mm3 (150-450); Red Blood Count 3.26 M/mm3 (4.1-5.6); Red Cell Distribution Width 17.8 % (11.5-14.0); White Blood Count 8.6 K/mm3 (4.0-10.5)
[2018-10-06] MEDS ORDERED: ENOXAPARIN SODIUM SQ SCH (06:00)
[2018-10-06 06:03] LABS: Mean Corpuscular Hemoglobin 31.2 pg (26-32)
[2018-10-06 06:05] LABS: ALBUMIN 2.3 g/dL (3.5-5.0); ANION GAP 12.5 MEQ/L (5-15); BILIRUBIN,TOTAL 1.4 mg/dL (0.2-1.3); Calcium 8.2 mg/dL (8.4-10.2); Creatinine 1 2.2 mg/dL (0.66-1.25); Potassium 4.8 mmol/L (3.5-5.1); Total Protein 4.9 g/dL (6.3-8.2)
[2018-10-06 06:06] LABS: ALBUMIN 2.1 g/dL (3.5-5.0); ANION GAP 11.6 MEQ/L (5-15); Creatinine 1 2.14 mg/dL (0.66-1.25); MAGNESIUM 2.2 mg/dL (1.6-2.3); Potassium 4.7 mmol/L (3.5-5.1); Total Protein 4.4 g/dL (6.3-8.2)
[2018-10-06 07:40] LABS: Eosinophil 1 % (0.00-3.0); Lymphocytes 2 % (24-44); Monocyte 2 % (0.0-12.0); Neutrophils 95 % (36.-66.); Total Cells Counted 100
[2018-10-06 07:43] LABS: ANISOCYTOSIS 1+; Platelet Estimate NORMAL (NORMAL); Poikilocytosis 1+; Polychromasia 1+
--- NOTE | 2018-10-06 08:18 | PCM.NOTE ---
Date and Time: 10/06/18811 Subjective Assessment: patient still with significant abd pain, worse last night. no flatus, no bowel movement. NG still present to LIS Objective Exam General Appearance: no apparent distress, alert Skin Exam: normal color, warm, dry Respiratory Exam: normal breath sounds, lungs clear, No respiratory distress Cardiovascular Exam: regular rate/rhythm, normal heart sounds Gastrointestinal/Abdomen Exam: soft, No normal bowel sounds Extremity Exam: normal inspection, normal range of motion OBJECTIVE DATA Vital Signs: Vital Signs - 24 hr Temp Pulse Resp BP BP Pulse Ox 10/06/18 07:47 98.4 F 86 16 124/73 96 10/06/18 07:43 86 20 96 10/06/18 05:34 94 L 10/06/18 04:00 20 10/06/18 03:00 98.5 F 78 20 154/76 95 10/06/18 00:00 17 10/05/18 23:00 98.3 F 77 17 131/65 94 L 10/05/18 20:08 66 17 96 10/05/18 20:00 17 10/05/18 19:30 94 L 10/05/18 18:45 98.2 F 68 16 124/62 95 10/05/18 16:00 18 10/05/18 15:25 97.8 F 75 18 117/62 98 10/05/18 15:00 98.0 F 64 116/57 10/05/18 12:00 97.9 F 75 16 115/59 93 L 10/05/18 11:38 73 17 116/62 10/05/18 11:02 75 20 122/53 10/05/18 09:35 72 17 108/66 Oxygen-Last 24 hours O2 Percentage 3 Liters = 32% O2 Percentage 3 Liters = 32% Pain Assessment - Last Documented Pain Intensity 0 Pain Scale Used 0-10 Pain Scale Intake and Output: Intake & Output 10/03/18 10/04/18 10/05/18 10/06/18 11:59 11:59 11:59 11:59 Intake Total 1621 2280 2413 4171 Output Total 600 1425 1175 1175 Balance 5994 264 9905 2996 Weight 76.7 kg 82.6 kg Lab Results: Accuchecks Date 10/06/18 Date 10/06/18 Date 10/05/18 Date 10/05/18 Time 07:39 Time 04:34 Time 20:07 Time 16:07 Accucheck Value: 116 Accucheck Value: 110 Accucheck Value: 110 Accucheck Value: 118 Lab Results-Last 24 Hours 10/05/18 10/05/18 10/05/18 Range/Units 05:00 10:52 10:52 WBC (4.0-10.5) K/mm3 RBC (4.1-5.6) M/mm3 Hgb (12.5-18.0) gm/dl Hct (42-50) % MCV (78-100) fl MCH (26-32) pg MCHC (32-36) g/dl RDW (11.5-14.0) % Plt Count (150-450) K/mm3 MPV (6-9.5) fl Segmented Neutrophils (36.-66.) % Lymphocytes (Manual) (24-44) % Monocytes (Manual) (0.0-12.0) % Eosinophils (Manual) (0.00-3.0) % Platelet Estimate (NORMAL) RBC Morphology Polychromasia Poikilocytosis Anisocytosis Sodium (137-145) mmol/L Potassium (3.5-5.1) mmol/L Chloride (98-107) mmol/L Carbon Dioxide (22-30) mmol/L Anion Gap (5-15) MEQ/L BUN (9-20) mg/dL Creatinine (0.66-1.25) mg/dL Estimated GFR ML/MIN Glucose (74-106) mg/dL Calcium (8.4-10.2) mg/dL Magnesium (1.6-2.3) mg/dL Total Bilirubin (0.2-1.3) mg/dL AST (17-59) U/L ALT (0-50) U/L Alkaline Phosphatase (38-126) U/L Troponin I (0.000-0.034) ng/mL Serum Total Protein (6.3-8.2) g/dL Albumin (3.5-5.0) g/dL Slides for Path Review YES ABO Group A Rh Factor POSITIVE Antibody Screen NEGATIVE (NEGATIVE) Crossmatch COMPATIBLE COMPATIBLE (COMPATIBLE) 10/05/18 10/05/18 10/05/18 Range/Units 10:52 14:10 17:10 WBC (4.0-10.5) K/mm3 RBC (4.1-5.6) M/mm3 Hgb (12.5-18.0) gm/dl Hct (42-50) % MCV (78-100) fl MCH (26-32) pg MCHC (32-36) g/dl RDW (11.5-14.0) % Plt Count (150-450) K/mm3 MPV (6-9.5) fl Segmented Neutrophils (36.-66.) % Lymphocytes (Manual) (24-44) % Monocytes (Manual) (0.0-12.0) % Eosinophils (Manual) (0.00-3.0) % Platelet Estimate (NORMAL) RBC Morphology Polychromasia Poikilocytosis Anisocytosis Sodium (137-145) mmol/L Potassium (3.5-5.1) mmol/L Chloride (98-107) mmol/L Carbon Dioxide (22-30) mmol/L Anion Gap (5-15) MEQ/L BUN (9-20) mg/dL Creatinine (0.66-1.25) mg/dL Estimated GFR ML/MIN Glucose (74-106) mg/dL Calcium (8.4-10.2) mg/dL Magnesium (1.6-2.3) mg/dL Total Bilirubin (0.2-1.3) mg/dL AST (17-59) U/L ALT (0-50) U/L Alkaline Phosphatase (38-126) U/L Troponin I 0.016 0.016 0.017 (0.000-0.034) ng/mL Serum Total Protein (6.3-8.2) g/dL Albumin (3.5-5.0) g/dL Slides for Path Review ABO Group Rh Factor Antibody Screen (NEGATIVE) Crossmatch (COMPATIBLE) 10/05/18 10/05/18 10/05/18 Range/Units 21:00 23:40 23:40 WBC (4.0-10.5) K/mm3 RBC (4.1-5.6) M/mm3 Hgb 9.8 L (12.5-18.0) gm/dl Hct 29.6 L (42-50) % MCV (78-100) fl MCH (26-32) pg MCHC (32-36) g/dl RDW (11.5-14.0) % Plt Count (150-450) K/mm3 MPV (6-9.5) fl Segmented Neutrophils (36.-66.) % Lymphocytes (Manual) (24-44) % Monocytes (Manual) (0.0-12.0) % Eosinophils (Manual) (0.00-3.0) % Platelet Estimate (NORMAL) RBC Morphology Polychromasia Poikilocytosis Anisocytosis Sodium (137-145) mmol/L Potassium (3.5-5.1) mmol/L Chloride (98-107) mmol/L Carbon Dioxide (22-30) mmol/L Anion Gap (5-15) MEQ/L BUN (9-20) mg/dL Creatinine (0.66-1.25) mg/dL Estimated GFR ML/MIN Glucose (74-106) mg/dL Calcium (8.4-10.2) mg/dL Magnesium (1.6-2.3) mg/dL Total Bilirubin (0.2-1.3) mg/dL AST (17-59) U/L ALT (0-50) U/L Alkaline Phosphatase (38-126) U/L Troponin I < 0.012 0.012 (0.000-0.034) ng/mL Serum Total Protein (6.3-8.2) g/dL Albumin (3.5-5.0) g/dL Slides for Path Review ABO Group Rh Factor Antibody Screen (NEGATIVE) Crossmatch (COMPATIBLE) 10/06/18 10/06/18 10/06/18 Range/Units 05:00 05:30 05:30 WBC 8.6 (4.0-10.5) K/mm3 RBC 3.26 L (4.1-5.6) M/mm3 Hgb 10.2 L (12.5-18.0) gm/dl Hct 31.5 L (42-50) % MCV 96.6 (78-100) fl MCH 31.2 (26-32) pg MCHC 32.4 (32-36) g/dl RDW 17.8 H (11.5-14.0) % Plt Count 243 (150-450) K/mm3 MPV 10.9 H (6-9.5) fl Segmented Neutrophils 95 H (36.-66.) % Lymphocytes (Manual) 2 L (24-44) % Monocytes (Manual) 2 (0.0-12.0) % Eosinophils (Manual) 1 (0.00-3.0) % Platelet Estimate NORMAL (NORMAL) RBC Morphology ABNORMAL Polychromasia 1+ Poikilocytosis 1+ Anisocytosis 1+ Sodium 137 138 (137-145) mmol/L Potassium 4.7 4.8 (3.5-5.1) mmol/L Chloride 112 H 112 H (98-107) mmol/L Carbon Dioxide 18 L 18 L (22-30) mmol/L Anion Gap 11.6 12.5 (5-15) MEQ/L BUN 54 H 54 H (9-20) mg/dL Creatinine 2.14 H 2.20 H (0.66-1.25) mg/dL Estimated GFR 32.4 31.4 ML/MIN Glucose 116 H 116 H (74-106) mg/dL Calcium 8.0 L 8.2 L (8.4-10.2) mg/dL Magnesium 2.2 (1.6-2.3) mg/dL Total Bilirubin 1.40 H (0.2-1.3) mg/dL AST 34 (17-59) U/L ALT 169 H (0-50) U/L Alkaline Phosphatase 220 H (38-126) U/L Troponin I (0.000-0.034) ng/mL Serum Total Protein 4.4 L 4.9 L (6.3-8.2) g/dL Albumin 2.1 L 2.3 L (3.5-5.0) g/dL Slides for Path Review ABO Group Rh Factor Antibody Screen (NEGATIVE) Crossmatch (COMPATIBLE) Radiology Exams: Radiology Procedures Category Date Time Status CHEST 1 VIEW (PORTABLE) Routine Exams 10/05/18 10:25 Completed Multi-Disciplinary Progress Notes: Multi-Disciplinary Progress Notes 10/05/18 14:31 Pharmacy Note by Armen Posey Central line TPN to run at 70ml/hr will provide around 1900 calories per day. Will add 10 units of insulin to start for high glucose. Total IV fluid to be 100ml/hr rate. Initialized on 10/05/18 14:31 - END OF NOTE Assessment/Plan (1) A-fib Current Visit: Yes Status: Acute Assessment & Plan: currently sinus, will only give prophylactic lovenox due to recent GI bleed requiring transfusion. Code(s): I48.91 - UNSPECIFIED ATRIAL FIBRILLATION (2) Small bowel obstruction Current Visit: No Status: Acute Onset Date: ~08/12/18 Assessment & Plan: POD #4 s/p ileocolostomy, encourage ambulation. plan to resume prophylactic dose of lovenox and monitor due to recent GI bleed. Code(s): K56.609 - UNSP INTESTNL OBST, UNSP TO PARTIAL VERSUS COMPLETE OBST (3) Acute on chronic renal insufficiency Current Visit: No Status: Acute Onset Date: ~08/12/18 Code(s): N28.9 - DISORDER OF KIDNEY AND URETER, UNSPECIFIED; N18.9 - CHRONIC KIDNEY DISEASE, UNSPECIFIED (4) Hyperkalemia Current Visit: Yes Status: Acute Code(s): E87.5 - HYPERKALEMIA (5) History of gastric cancer Current Visit: No Status: Chronic Code(s): Z85.028 - PERSONAL HISTORY OF OTHER MALIGNANT NEOPLASM OF STOMACH
[2018-10-06] MEDS: LOPRESSOR 5 MG/5 ML INJECTION IV SCH ×2 (09:05→17:01)
[2018-10-06] MEDS: ENOXAPARIN SODIUM SQ SCH (09:05)
[2018-10-06] MEDS ORDERED: DILAUDID 2 MG INJECTION IV PRN (11:58)
[2018-10-06] MEDS: DILAUDID 1 MG/1ML PCA IV PRN (12:11)
[2018-10-06] MEDS: PROTONIX 40 MG IV IV SCH (13:38)
[2018-10-06] MEDS: INTRALIPID 20% 250 ML 250 ML, TPN Electrolytes 20 ML, Multitrace-4 Conc Vial 1 ML*** 1 ... IV SCH ×6 (14:00)
[2018-10-06] MEDS: DILAUDID 2 MG INJECTION IV PRN ×2 (14:43→19:14)
--- NOTE | 2018-10-06 14:50 | XRAY ---
Indication: Postop exam for small bowel blockage. Comparison: Chest exam October 05, 2018 and small bowel follow-through exam September 26, 2018. 2 views of the abdomen demonstrates mild air distended bowel loops with synchronous fluid leveling presumed postoperative ileus with new midline cutaneous dipti. Stable epigastric and right mid abdomen suture material along with IVC filter and bilateral ureteral stent catheters. New small round pelvic inlet opacities presumed enteric contrast in diverticula. Stable heavy scattered vascular calcifications and moderate multilevel degenerative spondylosis. AP chest demonstrates stable bibasilar infiltrates/atelectasis again left greater than right. Upper lungs clear. Heart is not enlarged with stable right Port-A-Cath. NG tube has been removed. Bony thorax intact again with degenerative changes. Impression: 1. Abdomen demonstrates bowel gas pattern favoring postoperative ileus. No large free air. 2. Stable chest again demonstrating bibasilar infiltrates/atelectasis without new cardiopulmonary abnormalities.
[2018-10-06] MEDS ORDERED: Dulcolax 10 MG SUPP PR ONE (15:53)
[2018-10-07] MEDS: DILAUDID 2 MG INJECTION IV PRN ×6 (00:18→15:55)
[2018-10-07] MEDS: LOPRESSOR 5 MG/5 ML INJECTION IV SCH ×2 (02:46→08:47)
[2018-10-07] MEDS: Zosyn 2.25 GM 2.25 GM in Dextrose 5%/Water IV Soln. 100ML PLUS BAG 100 ML IV SCH ×4 (05:18→12:08)
[2018-10-07 05:59] LABS: Hematocrit 35.8 % (42-50); Hemoglobin 11.7 gm/dl (12.5-18.0); Mean Corpuscular Hgb Concent. 32.7 g/dl (32-36); Mean Platelet Volume 11.5 fl (6-9.5); Platelet Count 268 K/mm3 (150-450); Red Blood Count 3.73 M/mm3 (4.1-5.6); Red Cell Distribution Width 18.1 % (11.5-14.0); White Blood Count 14.8 K/mm3 (4.0-10.5)
[2018-10-07 06:07] LABS: Mean Corpuscular Hemoglobin 31.3 pg (26-32)
[2018-10-07 06:19] LABS: ALBUMIN 2.2 g/dL (3.5-5.0); ANION GAP 15.2 MEQ/L (5-15); BILIRUBIN,TOTAL 1.7 mg/dL (0.2-1.3); Creatinine 1 3.15 mg/dL (0.66-1.25); Total Protein 4.9 g/dL (6.3-8.2)
[2018-10-07 08:24] LABS: BAND 12 % (0.0-2.0); Lymphocytes 9 % (24-44); Monocyte 2 % (0.0-12.0); Neutrophils 77 % (36.-66.); Platelet Estimate NORMAL (NORMAL); Total Cells Counted 100
[2018-10-07] MEDS: ENOXAPARIN SODIUM SQ SCH (08:48)
--- NOTE | 2018-10-07 08:52 | PCM.NOTE ---
Date and Time: 10/07/1846 Subjective Assessment: Pt states he is doing "terrible" this morning, which is because his pain medicine does not last long enough per RN. Current abd pain is 6/10. " Normally it's 10/10." He has been urinating; just had 75cc out; he had 675 out in the past 12h. Yesterday he had 1600 out in 24 hours. He has been tachypneic, RR 20-30. His D5 1/2 at 30cc/hr was held last night because he is also on TPN at 70/hr. Weight up to 82.4 kg. His BP dropped to 89/59 last night and one dose of metoprolol was held. HR is 100 currently. BP is 120s systolic. He had a BM last night with a suppository. He does not have any memory of this. He is not aware of passing any flatus but thinks his told him he did. He is disoriented to place. Oriented to year. - Review of Systems Constitutional: No Fever Respiratory: Other (tachypnea) Abdominal/Gastrointestinal: Abdominal Pain, No Vomiting Objective Exam General Appearance: no apparent distress, alert Neurologic Exam: cooperative, disoriented Skin Exam: normal color, warm, dry, No rash Ears, Nose, Throat Exam: moist mucous membranes Respiratory Exam: normal breath sounds, lungs clear, No crackles/rales, No rhonchi, No wheezing Cardiovascular Exam: normal heart sounds, tachycardia, No murmur Gastrointestinal/Abdomen Exam: soft, distention, other (midline dressing c/d/i) , No normal bowel sounds (hypoactive) Extremity Exam: No pedal edema, No swelling OBJECTIVE DATA Vital Signs: Vital Signs - 24 hr Temp Pulse Resp BP Pulse Ox 10/07/18 07:50 27 H 10/07/18 07:37 99 H 10/07/18 07:25 98.1 F 100 H 20 113/75 96 10/07/18 07:16 104 H 24 97 10/07/18 05:16 97.6 F 104 H 24 107/67 97 10/07/18 04:00 102 H 10/07/18 00:00 98 F 107 H 23 89/59 97 10/06/18 23:30 24 10/06/18 20:00 99.9 F 109 H 24 93/59 96 10/06/18 19:52 110 H 19 82 L 10/06/18 16:00 117 H 18 101/75 97 10/06/18 13:42 94 L 10/06/18 12:11 94 L 10/06/18 12:00 98.2 F 85 16 156/86 90 L Oxygen-Last 24 hours O2 Percentage 2 Liters = 28% O2 Percentage 4 Liters = 36% O2 Percentage 3 Liters = 32% O2 Percentage 2 Liters = 28% Oxygen Flowrate (L/min)-RT 2 Pain Assessment - Last Documented Pain Intensity 6 Pain Scale Used 0-10 Pain Scale Intake and Output: Intake & Output 10/04/18 10/05/18 10/06/18 10/07/18 11:59 11:59 11:59 11:59 Intake Total 2280 2413 4171 2225 Output Total 1425 1175 1475 450 Balance 855 1238 2696 1775 Weight 82.6 kg 82.4 kg Lab Results: Accuchecks Date 10/07/18 Date 10/07/18 Date 10/07/18 Date 10/06/18 Date 10/06/18 Date 10/06/18 Time 08:09 Time 04:00 Time 00:15 Time 20:00 Time 16:10 Time 12:28 Accucheck Value: 136 Accucheck Value: 134 Accucheck Value: 145 Accucheck Value: 114 Accucheck Value: 113 Accucheck Value: 99 Lab Results-Last 24 Hours 10/02/18 10/06/18 10/07/18 Range/Units 10:10 05:00 05:00 WBC 14.8 H (4.0-10.5) K/mm3 RBC 3.73 L (4.1-5.6) M/mm3 Hgb 11.7 L (12.5-18.0) gm/dl Hct 35.8 L (42-50) % MCV 96.0 (78-100) fl MCH 31.3 (26-32) pg MCHC 32.7 (32-36) g/dl RDW 18.1 H (11.5-14.0) % Plt Count 268 (150-450) K/mm3 MPV 11.5 H (6-9.5) fl Segmented Neutrophils 77 H (36.-66.) % Band Neutrophils 12 H (0.0-2.0) % Lymphocytes (Manual) 9 L (24-44) % Monocytes (Manual) 2 (0.0-12.0) % Platelet Estimate NORMAL (NORMAL) RBC Morphology NORMAL Sodium (137-145) mmol/L Potassium (3.5-5.1) mmol/L Chloride (98-107) mmol/L Carbon Dioxide (22-30) mmol/L Anion Gap (5-15) MEQ/L BUN (9-20) mg/dL Creatinine (0.66-1.25) mg/dL Estimated GFR ML/MIN Glucose (74-106) mg/dL Hemoglobin A1c 5.30 (4.5-6.0) % Calcium (8.4-10.2) mg/dL Total Bilirubin (0.2-1.3) mg/dL AST (17-59) U/L ALT (0-50) U/L Alkaline Phosphatase (38-126) U/L Serum Total Protein (6.3-8.2) g/dL Albumin (3.5-5.0) g/dL [employer] Production [employer] Cyto Report See Note H 10/07/18 Range/Units 05:00 WBC (4.0-10.5) K/mm3 RBC (4.1-5.6) M/mm3 Hgb (12.5-18.0) gm/dl Hct (42-50) % MCV (78-100) fl MCH (26-32) pg MCHC (32-36) g/dl RDW (11.5-14.0) % Plt Count (150-450) K/mm3 MPV (6-9.5) fl Segmented Neutrophils (36.-66.) % Band Neutrophils (0.0-2.0) % Lymphocytes (Manual) (24-44) % Monocytes (Manual) (0.0-12.0) % Platelet Estimate (NORMAL) RBC Morphology Sodium 135 L (137-145) mmol/L Potassium 5.0 (3.5-5.1) mmol/L Chloride 111 H (98-107) mmol/L Carbon Dioxide 14 L* (22-30) mmol/L Anion Gap 15.2 H (5-15) MEQ/L BUN 68 H (9-20) mg/dL Creatinine 3.15 H (0.66-1.25) mg/dL Estimated GFR 20.8 ML/MIN Glucose 141 H (74-106) mg/dL Hemoglobin A1c (4.5-6.0) % Calcium 8.0 L (8.4-10.2) mg/dL Total Bilirubin 1.70 H (0.2-1.3) mg/dL AST 19 (17-59) U/L ALT 99 H (0-50) U/L Alkaline Phosphatase 195 H (38-126) U/L Serum Total Protein 4.9 L (6.3-8.2) g/dL Albumin 2.2 L (3.5-5.0) g/dL Television Production [employer] Cyto Report Radiology Exams: Radiology Procedures Category Date Time Status CHEST 1 VIEW (PORTABLE) Routine Exams 10/05/18 10:25 Completed OBSTR/ACUTE ABDOMEN SERIES Stat Exams 10/06/18 14:36 Completed Multi-Disciplinary Progress Notes: Multi-Disciplinary Progress Notes 10/06/18 23:12 Respiratory Note by Tay Duenas NURSING NOTIFIED ME THAT PT WAS TAKING OFF THE OXYMASK, I PLACED PT BACK ON NC AT 2LPM AND SATS WERE 96%. NOTIFIED NURSING OF CHANGE. Initialized on 10/06/18 23:12 - END OF NOTE 10/06/18 21:10 Respiratory Note by Tay Duenas JUST CHECKED ON PT AND HE HAD SATS OF 97% ON 3LPM OXYMASK W/ A HR OF 109. PT CONTINUES TO SLEEP. Initialized on 10/06/18 21:10 - END OF NOTE 10/06/18 20:12 Respiratory Note by Tay Duenas PT JUST RECENTLY HAD PAIN MEDS AND IS ASLEEP AT THIS TIME. WAS UNABLE TO DO I.S. AT THIS TIME. NURSING CONTACTED ME RE: SATS THEY WERE IN 80'S AND THERE WAS DIFFICULTY READING SATS DUE TO COLD FINGERS AND TOES. I PLACED PT ON MY EAR PROBE AND PUT PT ON AN OXYMASK OF 3LPM (DUE TO MOUTH BREATHING) AND SATS ARE 98% AND HR IS MATCHING WHAT PROBE ON FINGER IS READING (110). I LET NURSING KNOW THAT I WAS HAPPY TO LEAVE EAR PROBE WITH PT AND TO CALL ME IF NEEDED. Initialized on 10/06/18 20:12 - END OF NOTE Assessment/Plan (1) S/P ileostomy Current Visit: Yes Status: Acute Assessment & Plan: POD #5 today. I am increasing the frequency of his dilaudid 0.5 mg to q3h instead of q4h. Code(s): Z93.2 - ILEOSTOMY STATUS (2) A-fib Current Visit: Yes Status: Acute Qualifiers: Atrial fibrillation type: chronic Qualified Code(s): I48.2 - Chronic atrial fibrillation Assessment & Plan: has been sinus rhythm this morning. On IV metoprolol as he is not taking po. Code(s): I48.91 - UNSPECIFIED ATRIAL FIBRILLATION (3) Ileus Current Visit: Yes Status: Acute Assessment & Plan: Had a BM but still very hypoactive bowel sounds. Currently on TPN and NPO. Code(s): K56.7 - ILEUS, UNSPECIFIED (4) Acute on chronic renal insufficiency Current Visit: No Status: Acute Onset Date: ~08/12/18 Assessment & Plan: nephrology consulted. His creatinine is worse this morning 3.15 (was 2.14 yesterday). Code(s): N28.9 - DISORDER OF KIDNEY AND URETER, UNSPECIFIED; N18.9 - CHRONIC KIDNEY DISEASE, UNSPECIFIED (5) Elevated liver enzymes Current Visit: No Status: Acute Onset Date: ~08/12/18 Assessment & Plan: AST nl but ALT 99, alk phos 195. Code(s): R74.8 - ABNORMAL LEVELS OF OTHER SERUM ENZYMES (6) History of gastric cancer Current Visit: No Status: Chronic Code(s): Z85.028 - PERSONAL HISTORY OF OTHER MALIGNANT NEOPLASM OF STOMACH (7) Leukocytosis Current Visit: Yes Status: Acute Qualifiers: Leukocytosis type: unspecified Qualified Code(s): D72.829 - Elevated white blood cell count, unspecified Assessment & Plan: add flagyl to his zosyn to cover for intra abdominal infection. He is afebrile. Code(s): D72.829 - ELEVATED WHITE BLOOD CELL COUNT, UNSPECIFIED (8) Hypocapnia Current Visit: Yes Status: Acute Assessment & Plan: May just be hyperventilating due to pain; abd with pH 7.38. Results of all labs this morning to nephrology. Code(s): E87.8 - OTH DISORDERS OF ELECTROLYTE AND FLUID BALANCE, NEC
[2018-10-07 08:54] LABS: A-aADO2 105; ABG HEMOGLOBIN 11.8; ABG POTASSIUM 4.8 (3.5-5.1); ABG SITE RIGHT RADIAL; ALLEN TEST OK? YES; ARTERIAL BLD GAS O2 SATURATION 94.3 % (95-100); ARTERIAL BLOOD GAS BASE EXCESS -11.3 (-2.0-2.0); ARTERIAL BLOOD GAS FIO2 28 %; ARTERIAL BLOOD GAS PCO2 20 mmHg (35-45); ARTERIAL BLOOD GAS PO2 70 mmHg (75-100); ARTERIAL BLOOD GAS pH 7.38 (7.35-7.45); CARBOXYHEMOGLOBIN 0.7 % THgb (0.0-6.9); HCO3- 11.8 (22-28); HGB O2 SAT 93.2 g/dF (94-100); Methhemoglobin 0.5 % (1.4-1.5)
[2018-10-07] MEDS: FLAGYL 500 MG IVPB 500 MG/100 ML BAG IV SCH ×2 (08:58→14:47)
[2018-10-07] MEDS: PROTONIX 40 MG IV IV SCH (13:05)
[2018-10-07] MEDS ORDERED: INTRALIPID 20% 250 ML 250 ML, TPN Electrolytes 20 ML, Multitrace-4 Conc Vial 1 ML*** 1 ... IV SCH ×6 (14:00)
--- NOTE | 2018-10-07 15:10 | XRAY ---
Indication: Poor urine output. Two-dimensional ultrasound of the urinary bladder performed. Comparison: None Prevoid bladder volume is 197 cc. Right bladder wall demonstrates thickened/irregular appearance either incomplete distention versus mass. Bladder wall mass is more likely given the asymmetry. 7.6 x 4.6 x 6.2 cm enlarged prostate gland impresses on the base of the bladder. No postvoid imaging. Impression: Bladder volume 197 cc. Right bladder wall thickening/irregularity either incomplete distention versus mass. Enlarged prostate gland.
[2018-10-07 16:07] VITALS: BP 140/76; PULSE 112; O2SAT 95
--- NOTE | 2018-10-08 08:03 | DS ---
ADMISSION DIAGNOSES: 1) Hyperkalemia. 2) Acute on chronic renal insufficiency. 3) Small bowel obstruction. 4) History of gastric cancer. DISCHARGE DIAGNOSES: 1) STATUS POST ILEOSTOMY. 2) ATRIAL FIBRILLATION. 3) ILEUS. 4) ACUTE ON CHRONIC RENAL INSUFFICIENCY. 5) ELEVATED LIVER ENZYMES. 6) HISTORY OF GASTRIC CANCER. 7) LEUKOCYTOSIS. 8) HYPOCAPNIA. HOSPITAL COURSE: This is a 72 year-old male patient with chronic abdominal issues who came in to have a laparotomy with Dr. Uvaldo Hartman. He has a history of gastric cancer and had ileocolostomy placed. Initially he had a Dilaudid [employer]IC[employer] but other than pain from the surgery was doing well. Initially he had an NG in place. The family medicine service was consulted for his multiple medical comorbidities. The night of 10/04/2018 and 10/05/2018 he developed atrial fibrillation and was converted with Cardizem drip. He was moved to the ICU. He was postoperative day #3 with the NG tube still in place and NPO so he was started on TPN. He did have some chest pain at that time. With the atrial fibrillation he received one dose of Lovenox 80 mg subcutaneously but there was concern about his recent history of GI bleed which was in September 2018 and he received 5 units of packed red blood cells at that time. The nurse contacted Dr. Soria and he recommended continuing 80 mg of Lovenox subcutaneously daily but he will not come and see the patient at [facility] so he deferred further anticoagulation orders to Dr. Maurer. The patient converted to normal sinus rhythm and the Cardizem drip was titrated and he was on metoprolol IV four times a day. Given his chest pain and history of coronary artery disease, Dr. Kuhn decided to transfuse the patient 2 units of packed red blood cells at that time. His hemoglobin was 8.8. The next day Dr. Maurer decided to just give prophylactic Lovenox due to his recent GI bleed requiring transfusion. Today, the patient stated that he was doing "terrible" because his pain medicine did not last long enough. When I spoke with him this morning his abdominal pain was 6 out of 10. He received an extra dose of 0.5 mg of Dilaudid IV when he got up to the chair. He had a bowel movement last night with a suppository and apparently had been passing some flatus. He did not have a memory of either the bowel movement or of passing flatus but thinks his told him that he did. His urine output was 1600 yesterday and 675 for the first 12 hours today. However since I saw the patient he only had 75 cc out and on bladder ultrasound he had about 160 cc in his bladder. His renal function has been worsening. His creatinine was 2.96 on admission with an estimated glomerular filtration rate of 22.3. It improved to 2.14 yesterday with an estimated glomerular filtration rate of 32.4. This morning the creatinine was 3.15 with estimated glomerular filtration rate of 20.8. Chronically he sees Dr. Marcelo for nephrology. This morning he had been tachypneic with a respiratory rate between 20 and 30. This afternoon when he became more comfortable and his pain was more controlled his respiratory rate was under 20. An arterial blood gas was done with a pH of 7.38, pO2 70, pCO2 20, HCO3 of 11.8. Last night his blood pressure dropped to 89/59 and so one dose of his metoprolol was held. His heart rate this morning was 100 and his blood pressure was in the 120 systolic. The patient is often slightly disoriented but can be oriented by staff. This morning he was disoriented to place but oriented to year. He had leukocytosis today. His white blood cell count was 14.8. Yesterday was 8.6. I started him on IV Flagyl. He was found to have bibasilar infiltrates versus atelectasis on 10/05/2018 and started on IV Zosyn to cover this. His sputum culture with organisms consistent with normal respiratory mehnaz, nothing predominant. He had a urine culture with no growth in the final report. He had abdomen series on 10/06/2018 that showed bowel gas favoring postoperative ileus and again bibasilar infiltrates/atelectasis with no new abnormalities. When Dr. Nuno spoke to the staff about the patient's labs this morning he wanted the patient to be transferred out to [facility]. He did take care of getting the patient a bed. I did talk to the patient's about the serious nature of his illness and the difficulty of recovering with multiple comorbidity. DISCHARGE PHYSICAL: Temperature 98.1F, pulse 100, respirations 20, blood pressure 113/75. Pulse ox 96% on 2 liters nasal cannula. GENERAL: He is no apparent distress, alert, disoriented to place. NEURO: Cooperative. Appears to move extremities. SKIN: Normal color, warm, dry and no rash. HEENT: Moist mucous membranes. RESPIRATORY: Normal breath sounds, lungs clear. No crackles, rales, rhonchi or wheezing. CV: Normal heart sounds, tachycardia. No murmur. Regular rhythm. GI: Soft, distended. There is midline dressing that is clean, dry and intact. Abdominal binder was removed to do the exam. Bowel sounds were hypoactive. EXTREMITIES: No pedal edema. No swelling. DISPOSITION: [facility]. DISCHARGE CONDITION: Serious.
== END 2018-10-07 17:15 | disposition short-term general hospital (02) | DRG 330 ==
LOC: ICU 07:49 → UNDOADMIN 07:49 → MED SURG 10-03 08:28 → ICU 10-05 05:21
PROVIDERS: ADMIT Surgery; ATTEND Surgery
PROC: 0DNB0ZZ Release Ileum, Open Approach (ICD-10-PCS; principal; 2018-10-02)
PROC: 0D1B0ZH Bypass Ileum to Cecum, Open Approach (ICD-10-PCS; 2018-10-02)
DX: K56.7 Ileus, unspecified (principal); R18.8 Other ascites; D62 Acute posthemorrhagic anemia; E87.2 Acidosis; E87.5 Hyperkalemia; K56.50 Intestinal adhesions [bands], unspecified as to partial versus complete obstruction; I12.9 Hypertensive chronic kidney disease with stage 1 through stage 4 chronic kidney disease, or unspecified chronic kidney disease; I48.0 Paroxysmal atrial fibrillation; R74.8 Abnormal levels of other serum enzymes; D72.829 Elevated white blood cell count, unspecified; Z79.899 Other long term (current) drug therapy; I25.2 Old myocardial infarction; Z85.028 Personal history of other malignant neoplasm of stomach; I25.10 Atherosclerotic heart disease of native coronary artery without angina pectoris; R07.9 Chest pain, unspecified; R10.84 Generalized abdominal pain; K25.9 Gastric ulcer, unspecified as acute or chronic, without hemorrhage or perforation; E63.9 Nutritional deficiency, unspecified; E87.8 Other disorders of electrolyte and fluid balance, not elsewhere classified
CPT/HCPCS: 36415; 36430; 36600; 64488; 71045; 74022; 76705; 76937; 76942; 80048; 80053; 81001; 82040; 82375; 82803; 82962; 83036; 83735; 84155; 84484; 85014; 85018; 85025; 85027; 86850; 86900; 86901; 86922; 87070; 87086; 88305; 88309; 88341; 88342; 93005; 94760; 94762; 99100; J0330; J0694; J1170; J1642; J1650; J1815; J2250; J2270; J2370; J2405; J2543; J2704; J3010; L0625; P9016; A9270-GY

== ENCOUNTER 2018-11-08 20:16 | Emergency (ER) | payer MEDICARE ==
[2018-11-08 20:29] VITALS: O2SAT 99
[2018-11-08] MEDS ORDERED: Sodium Chloride 0.9% 1000 ML 1,000 ML ONE (21:05)
--- NOTE | 2018-11-08 21:05 | ERPHSYRPT ---
- History of Present Illness Time Seen by Provider: 11/08/18 20:49 Source: patient, family Exam Limitations: no limitations Patient Subjective Stated Complaint: pt c/o increasing weakness, abd pain, diarrhea since yesterday. states that while getting pt up to bsc at home, he went unresponsive. Triage Nursing Assessment: pt alert and oriented, answers questions approp. pt arriver per ambulance and transfer to stretcher with assist of 3. respirations nonlabored. o2 on at 3l as at home. abd soft, nontender to light palpation . bowel sounds present x 4 quads. Physician History: 72-year-old white male with history of macular degeneration hyperlipidemia high blood pressure myocardial infarction stomach cancer COPD GERD. Who has a history of renal failure and is on dialysis. States that he's been having diarrhea since yesterday he's felt weak. He apparently was given a medication for the diarrhea. His states that the patient said he was having lower abdominal pain and passed out while going to the bedside commode. Patient states that he had severe abdominal pain which was generalized however he had a large bowel movement when medics showed up and he is now pain-free. He has no chest pain no shortness of breath. Past medical history includes macular degeneration, hyperlipidemia, high blood pressure, myocardial infarction, COPD, GERD, renal disease on dialysis, stomach cancer, bowel blockage, carpal tunnel Past surgical history includes cardiac stent, appendectomy, hernia repair, PowerPort placement, 80% of his stomach removed, part of his esophagus removed, colonoscopy and inferior vena cava filter Timing/Duration: other (diarrhea yesterday and today passed out going to the bedside commode today abdominal pain earlier resolved after large bowel movement ) Severity: moderate Modifying Factors: Improves With: nothing Associated Symptoms: abdominal pain, syncope, weakness, No nausea, No vomiting, No shortness of breath, No heartburn, No diaphoresis, No cough, No chills, No chest pain, No fever, No headaches, No loss of appetite, No malaise, No rash, No seizure Allergies/Adverse Reactions: No Known Drug Allergies Allergy (Verified 11/08/18 20:39) Home Medications: Atorvastatin Calcium 10 mg PO HS 07/29/18 [History] Finasteride 5 mg PO DAILY 07/29/18 [History] Metoprolol Tartrate 12.5 mg PO BID 07/29/18 [History] Nitroglycerin 0.3 mg SL Q5MIN PRN MR X 3 PRN 07/29/18 [History] PANTOPRAZOLE 40 mg Tablet [Protonix 40MG Tablet] 40 mg PO BID 07/29/18 [ History] Tamsulosin HCl 0.4 mg PO HS 07/29/18 [History] Hx Tetanus, Diphtheria Vaccination/Date Given: No Hx Influenza Vaccination/Date Given: No Hx Pneumococcal Vaccination/Date Given: No Immunizations Up to Date: No - Review of Systems Constitutional: No Fever, No Chills Eyes: No Symptoms Ears, Nose, & Throat: No Symptoms Respiratory: No Cough, No Dyspnea Cardiac: No Chest Pain, No Edema, No Syncope Abdominal/Gastrointestinal: Abdominal Pain, Diarrhea, No Nausea, No Vomiting, No Constipation, No Hematemesis, No Hematochezia, No Melena, No Dysphagia, No Appetite Changes Genitourinary Symptoms: No Dysuria Musculoskeletal: No Back Pain, No Neck Pain Skin: No Rash Neurological: No Dizziness, No Focal Weakness, No Sensory Changes Psychological: No Symptoms Endocrine: No Symptoms All Other Systems: Reviewed and Negative - Past Medical History Pertinent Past Medical History: Yes Neurological History: No Pertinent History ENT History: Macular Degeneration Cardiac History: Coronary Artery Disease, High Cholesterol, Hypertension, Myocardial Infarction (MT) Respiratory History: COPD Endocrine Medical History: No Pertinent History, Other Musculoskeletal History: Other GI Medical History: GERD, Other History: Renal Disease Psycho-Social History: No Pertinent History Male Reproductive Disorders: No Pertinent History Other Medical History: stomach cancer. bowel blockage. carpel tunnel. part of esophagus removed - Past Surgical History Past Surgical History: Yes Neuro Surgical History: No Pertinent History Cardiac: Cardiac Catheterization, Cardiac Stent Respiratory: No Pertinent History Gastrointestinal: Appendectomy, Hernia Repair Genitourinary: Other Musculoskeletal: No Pertinent History Male Surgical History: No Pertinent History Other Surgical History: power port, lumpectomy forehead. 80% of stomach removed October 2017. part of esophagus removed october 2017. colonoscopy, ureter stents devang. filter for blood clot Carpal tunnel devang, 1985,1986. left and right ureteral stents. - Social History Smoking Status: Former smoker Exposure to second hand smoke: No Drug Use: none Patient Lives Alone: No - Nursing Vital Signs Nursing Vital Signs: Initial Vital Signs Temperature 98.4 F 11/08/18 20:19 Pulse Rate 104 H 11/08/18 20:19 Respiratory Rate 18 11/08/18 20:19 Blood Pressure 104/58 11/08/18 20:19 O2 Sat by Pulse Oximetry 99 11/08/18 20:19 Pain Scale Pain Intensity 0 - Physical Exam General Appearance: no apparent distress, alert Eye Exam: PERRL/EOMI, eyes nml inspection Ears, Nose, Throat Exam: normal ENT inspection, TMs normal, pharynx normal, moist mucous membranes Neck Exam: normal inspection, non-tender, supple, full range of motion Respiratory Exam: normal breath sounds, lungs clear, No respiratory distress Cardiovascular Exam: regular rate/rhythm, normal heart sounds, normal peripheral pulses, capillary refill <2 sec Gastrointestinal/Abdomen Exam: soft, normal bowel sounds, No tenderness, No mass Back Exam: normal inspection, normal range of motion, No CVA tenderness, No vertebral tenderness Extremity Exam: normal inspection Skin Exam: normal color, warm, dry, No rash Lymphatic Exam: No adenopathy SpO2 Interpretation: normal (99%) SpO2: 99 - Course Nursing assessment & vital signs reviewed: Yes EKG Interpreted by Me: RATE (99 bpm), Other (EKG: Sinus arrhythmia, 99 bpm, normal axis, no acute ST or T wave changes. Compared to October 07, 2018) - Radiology Exams Chest X-ray Interpretation: Discussed w/ radiologist (bilateral new effusions, right greater than left , no chf) Ordered Tests: Active Orders 24 hr Category Date Time Status Consent,Obtain ROUTINE Care 11/08/18 21:52 Active H&H 1 Hr Post Transfusion 1 HR POST TRANSFUS Care 11/08/18 21:52 Active IV Insertion STAT Care 11/08/18 20:58 Active CHEST 1 VIEW (PORTABLE) Stat Exams 11/08/18 20:59 Completed AMYLASE Stat Lab 11/08/18 21:23 Completed BLOOD CULTURE Stat Lab 11/08/18 21:23 Received CBC W DIFF Stat Lab 11/08/18 21:23 Completed CMP Stat Lab 11/08/18 21:23 Completed LIPASE Stat Lab 11/08/18 21:23 Completed Manual Differential NC Stat Lab 11/08/18 21:23 Completed NT PRO BNP Routine Lab 11/08/18 21:23 Completed Occult Blood, Other Screening Stat Lab 11/08/18 22:10 Uncollected TROPONIN Q3H Lab 11/08/18 21:23 Completed TROPONIN Q3H Lab 11/09/18 00:00 Ordered TROPONIN Q3H Lab 11/09/18 04:00 Ordered TROPONIN Q3H Lab 11/09/18 07:00 Ordered TROPONIN Q3H Lab 11/09/18 10:00 Ordered UA W/RFX UR CULTURE Stat Lab 11/08/18 20:58 Uncollected Medication Summary Generic Name Dose Route Start Last Admin Trade Name Trevinq PRN Reason Stop Dose Admin Sodium Chloride 1,000 mls @ 50 mls/hr 11/08/18 21:00 11/08/18 21:06 Sodium Chloride 0.9% 1000 Ml IV 12/08/18 20:59 50 mls/hr .Q20H KG Administration Lab/Rad Data: Laboratory Result Diagrams 11/08/18 21:23 11/08/18 21:23 Laboratory Results 11/08/18 11/08/18 11/08/18 Range/Units 21:23 21:23 21:23 WBC 3.4 L (4.0-10.5) K/mm3 RBC 2.09 L (4.1-5.6) M/mm3 Hgb 6.6 L* (12.5-18.0) gm/dl Hct 22.1 L (42-50) % MCV 105.7 H (78-100) fl MCH 31.5 (26-32) pg MCHC 29.9 L (32-36) g/dl RDW 19.7 H (11.5-14.0) % Plt Count 191 (150-450) K/mm3 MPV 10.6 H (6-9.5) fl Absolute Granulocytes 2.67 (1.4-6.9) Segmented Neutrophils 44 (36.-66.) % Band Neutrophils 43 H (0.0-2.0) % Lymphocytes (Manual) 8 L (24-44) % Monocytes (Manual) 4 (0.0-12.0) % Metamyelocytes 1 % Dohle Bodies 2+ Platelet Estimate NORMAL (NORMAL) RBC Morphology NORMAL Polychromasia 1+ Sodium 137 (137-145) mmol/L Potassium 3.2 L (3.5-5.1) mmol/L Chloride 98 (98-107) mmol/L Carbon Dioxide 32 H (22-30) mmol/L Anion Gap 10.6 (5-15) MEQ/L BUN 29 H (9-20) mg/dL Creatinine 1.84 H (0.66-1.25) mg/dL Estimated GFR 38.6 ML/MIN Glucose 104 (74-106) mg/dL Calcium 7.5 L (8.4-10.2) mg/dL Total Bilirubin 1.20 (0.2-1.3) mg/dL AST 14 L (17-59) U/L ALT 15 (0-50) U/L Alkaline Phosphatase 266 H (38-126) U/L Troponin I < 0.012 (0.000-0.034) ng/mL NT-Pro-B Natriuret Pep 4570 H (0-900) pg/mL Serum Total Protein 4.9 L (6.3-8.2) g/dL Albumin 2.1 L (3.5-5.0) g/dL Amylase < 30 L (30-110) U/L Lipase < 10 L (23-300) U/L - Progress Progress: improved Progress Note: 11/08/18 21:58 72-year-old white male arrives with complaint of syncopal episode after having diarrhea for 2 days. Patient states he had abdominal pain just prior to his syncopal episode. He states that he had a large bowel movement when medics arrived now essentially pain-free he does state he has a slight pain at this time. Patient with chronic renal failure cancer of the abdomen. Patient with the hemoglobin is 6.6 hematocrit 22.1 white blood cells 3.4 platelets 191. Chemistry sodium 137 potassium 3.2 chloride 98 bicarbonate 32 BUN 29 creatinine 1.84 glucose 104. Amylase less than 30 lipase less than 10. Patient's hemoglobin markedly different than previous on October 07, 2018 at that time hemoglobin was 11.7. Troponin on this patient is pending. I have asked him to go ahead and type and crossmatch this patient Will discuss case [facility] call. 12 with 11/08/18 22:08 I've discussed the patient's case with the auto acceptance personnel at [facility]. Patient has been auto excepted to [facility]. They will be called back. Patient did have a rectal performed no obvious bleeding. Impression 1. Syncope 2. Abdominal pain 3. Diarrhea 4. Anemia 5. History of renal failure on dialysis. 11/08/18 22:33 Patient has been accepted by Dr. Graves at [facility]. He requests no blood at this time will transfer patient. Contacted by Dr. Gallardo radiologist Dr. Gallardo feels that the patient has new effusions right greater than left, dialysis catheter in place heart is not enlarged. Will turn down patient's fluids to 10 mL per hour plan on transferring patient. - Departure Time of Disposition: 22:36 Departure Disposition: Transfer (Formerly [facility]) Clinical Impression: history of renal failure on dialysis Abdominal pain Qualifiers: Abdominal location: generalized Qualified Code(s): R10.84 - Generalized abdominal pain Syncope Qualifiers: Syncope type: unspecified Qualified Code(s): R55 - Syncope and collapse Diarrhea Qualifiers: Diarrhea type: unspecified type Qualified Code(s): R19.7 - Diarrhea, unspecified Anemia Qualifiers: Anemia type: unspecified type Qualified Code(s): D64.9 - Anemia, unspecified Condition: Fair Critical Care Time: No Referrals: BOBBY ALVARADO MD [Primary Care Provider] -
[2018-11-08] MEDS: Sodium Chloride 0.9% 1000 ML 1,000 ML IV SCH (21:06)
[2018-11-08 21:32] LABS: Granulocyte Absolute (ANC) 2.67 (1.4-6.9); Hematocrit 22.1 % (42-50); Mean Cell Volume 105.7 fl (78-100); Mean Corpuscular Hgb Concent. 29.9 g/dl (32-36); Mean Platelet Volume 10.6 fl (6-9.5); Platelet Count 191 K/mm3 (150-450); Red Blood Count 2.09 M/mm3 (4.1-5.6); Red Cell Distribution Width 19.7 % (11.5-14.0); White Blood Count 3.4 K/mm3 (4.0-10.5)
[2018-11-08 21:33] LABS: Mean Corpuscular Hemoglobin 31.5 pg (26-32)
[2018-11-08 21:34] LABS: Hemoglobin 6.6 gm/dl (12.5-18.0)
[2018-11-08 21:39] LABS: ALBUMIN 2.1 g/dL (3.5-5.0); ALKALINE PHOSPHATASE 266 U/L (38-126); AMYLASE < 30 U/L (30-110); ANION GAP 10.6 MEQ/L (5-15); BLOOD UREA NITROGEN 29 mg/dL (9-20); CHLORIDE 98 mmol/L (98-107); Calcium 7.5 mg/dL (8.4-10.2); Carbon Dioxide 32 mmol/L (22-30); Creatinine 1 1.84 mg/dL (0.66-1.25); Glucose 104 mg/dL (74-106); LIPASE < 10 U/L (23-300); Potassium 3.2 mmol/L (3.5-5.1); SGOT/AST 14 U/L (17-59); SGPT/ALT 15 U/L (0-50); SODIUM 137 mmol/L (137-145); Total Protein 4.9 g/dL (6.3-8.2)
[2018-11-08 21:55] LABS: BAND 43 % (0.0-2.0); Lymphocytes 8 % (24-44); Metamyelocyte 1 %; Monocyte 4 % (0.0-12.0); Neutrophils 44 % (36.-66.); Platelet Estimate NORMAL (NORMAL); Total Cells Counted 100
[2018-11-08 21:56] LABS: Dohle Bodies 2+; Polychromasia 1+
[2018-11-08 21:57] LABS: NT PRO BNP 4570 pg/mL (0-900)
[2018-11-08 22:03] LABS: TROPONIN < 0.012 ng/mL (0.000-0.034)
[2018-11-08 22:21] VITALS: BP 101/57
--- NOTE | 2018-11-08 22:38 | XRAY ---
Indication: Syncope. Abdomen pain. Comparison: October 06, 2018. Portable chest demonstrates new moderate bibasilar pleural effusions with adjacent atelectasis, right greater than left. Again anatomic variant azygos lobe. Heart is not enlarged for AP portable technique. Stable right Port-A-Cath and new left large bore dialysis catheter. Upper abdomen demonstrates incompletely visualized air distended GI tract, previously reported postoperative ileus. Impression: New bibasilar effusions/atelectasis without cardiomegaly. Comment: Effusions/atelectasis not reported on preliminary interpretation by the ER clinician. Telephone report given to Dr. Sears at 1032 hrs. on November 08, 2018.
[2018-11-08 22:50] VITALS: PULSE 84
[2018-11-08 22:56] LABS: ABO TYPING A; Antibody Screen NEGATIVE (NEGATIVE); RH TYPING POSITIVE
[2018-11-08 22:58] LABS: CROSS MATCH (PRBC) COMPATIBLE (COMPATIBLE)
== END 2018-11-08 23:02 | disposition short-term general hospital (02) ==
LOC: ED 20:16
DX: I12.9 Hypertensive chronic kidney disease with stage 1 through stage 4 chronic kidney disease, or unspecified chronic kidney disease (principal); N18.9 Chronic kidney disease, unspecified; Z99.2 Dependence on renal dialysis; R10.84 Generalized abdominal pain; R55 Syncope and collapse; D64.9 Anemia, unspecified; R19.7 Diarrhea, unspecified; I25.10 Atherosclerotic heart disease of native coronary artery without angina pectoris; I25.2 Old myocardial infarction; E78.00 Pure hypercholesterolemia, unspecified; J44.9 Chronic obstructive pulmonary disease, unspecified; K21.9 Gastro-esophageal reflux disease without esophagitis; Z85.028 Personal history of other malignant neoplasm of stomach; E78.5 Hyperlipidemia, unspecified
CPT/HCPCS: 36000; 36415; 71045; 80053; 82150; 83690; 83880; 84484; 85025; 86850; 86900; 86901; 86922; 87040; 99285